=== PATIENT | male | born 1980 | race Caucasian/White ===

== ENCOUNTER 2022-09-02 17:36 | Emergency (ER) | payer OTHER, SELFPAY ==
[2022-09-02 17:38] VITALS: BP 163/111; PULSE 103; RESP 16; TEMP 36.2; O2SAT 98; BMI 25.6
--- NOTE | 2022-09-02 17:49 | EKG12_ITS ---
Test Reason : MENTAL HEALTH Blood Pressure : / mmHG Vent. Rate : 101 BPM Atrial Rate : 101 BPM P-R Int : 128 ms QRS Dur : 110 ms QT Int : 328 ms P-R-T Axes : 078 076 051 degrees QTc Int : 425 ms Sinus tachycardia Low voltage QRS (Limb Leads) Confirmed by JUAN CARLOS KATE, KUMAR ([id number]), publishing editor SETH JUNIOR ([id number]) on 09/04/2022 7:31:11 AM Referred By: CHANA Confirmed By:KUMAR RANGEL MD
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
[2022-09-02 18:20] LABS: Absolute Lymphocyte Count 2.26 X10^3/uL (0.83-4.51); Absolute Neutrophil Count 4.5 X10^3/uL (2.0-7.7); Basophil# 0.07 X10^3/uL; Basophil% 0.9 % (0-1); Eosinophil# 0.38 X10^3/uL; Eosinophils% 4.7 % (0-5); Hematocrit 48.4 % (40-54); Hemoglobin 16.6 g/dL (13.0-16.5); Lymphocyte # 2.26 X10^3/ul (0.83-4.51); Lymphocyte % 27.9 % (19-41); Mean Corp Hgb Conc 34.3 g/dL (32-36); Mean Corpuscular Hgb 29.6 pg (27.0-32.0); Mean Corpuscular Volume 86.4 fL (80-94); Mean Platelet Vol. 9.1 fl (6.2-12.0); Monocyte# 0.83 X10^3/uL; Monocyte% 10.2 % (0-10); NRBC Flagged by Analyzer 0 % (0-5); Neutrophil # 4.54 X10^3/uL (2.7-7.7); Neutrophil % 55.9 % (47-70); Platelet Count 260 K/mm3 (150-450); RBC Distribution Width CV 12.5 % (11.6-14.6); RBC Distribution Width SD 39.1 fl (35.1-43.9); White Blood Count 8.1 K/mm3 (4.4-11.0)
[2022-09-02 18:32] LABS: Amphetamine Urine VISTA POSITIVE (<1000 ng/mL); Barbiturate Urine VISTA NEGATIVE (< 200 ng/mL); Benzodiazepine Urine VISTA POSITIVE (< 200 ng/mL); Cocaine Urine VISTA NEGATIVE (< 300 ng/mL); Ecstacy Urine VISTA POSITIVE (< 500 ng/mL); Methadone Urine VISTA NEGATIVE (< 300 ng/mL); PCP Urine VISTA NEGATIVE (< 25 ng/mL); THC Urine VISTA NEGATIVE (< 50 ng/mL); Vista UDS pH Range 5
[2022-09-02 18:46] LABS: ALB/GLOB Ratio 1.1 RATIO (0.9-2.4); AST(SGOT) 13 U/L (15-37); Alanine Aminotransfer ALT/SGPT 23 U/L (16-61); Albumin, Serum 3.6 g/dL (3.2-5.0); Alkaline Phosphatase 80 U/L (45-117); Anion Gap 6 (5-15); BUN 7 mg/dL (7-18); BUN/Creat Ratio 6.9 RATIO (10-20); Calcium,Total 8.3 mg/dL (8.5-10.1); Chloride 106 mmol/L (98-107); Creatinine, Serum 1.01 mg/dL (0.70-1.30); EST Glomerular Filtration Rate 86 mL/min (>60); Est Glom Filt Rate - Afr Amer 104 mL/min (>60); Estimated Creatinine Clearance 105.64 ml/min; Globulin 3.2 g/dL (2.2-4.2); Glucose 98 mg/dL (74-106); Potassium 3.5 mmol/L (3.5-5.1); Protein, Total 6.8 g/dL (6.4-8.2); Sodium Level 138 mmol/L (136-145)
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
[2022-09-02 21:59] VITALS: BP 140/85; PULSE 76; RESP 18; O2SAT 97
[2022-09-02] MEDS: Doxazosin 4 MG Tablet PO (22:55)
[2022-09-02] MEDS: hydrOXYzine PAM 25 MG Capsule 50 MG PO (22:55)
[2022-09-03] VITALS (7 sets, daily range): BP systolic 110–121; BP diastolic 68–77; PULSE 87–93; RESP 14–16; TEMP 36.6; O2SAT 96–97
--- NOTE | 2022-09-03 01:01 | ED.RN ---
va given information about patient at this time. they will call back with follow up
== END 2022-09-03 07:41 ==
PROVIDERS: Emergency Medicine; Emergency Provider Emergency Medicine; Visit Provider Emergency Medicine
DX: F32.A Depression, unspecified (principal); F15.10 Other stimulant abuse, uncomplicated; R45.850 Homicidal ideations; R45.851 Suicidal ideations; F10.10 Alcohol abuse, uncomplicated; Z20.822 Contact with and (suspected) exposure to COVID-19; F43.10 Post-traumatic stress disorder, unspecified; F17.210 Nicotine dependence, cigarettes, uncomplicated
CPT/HCPCS: 36415; 80053; 80307; 82077; 85025; 87635; 87811; 93005; 99284; U0003; U0005

== ENCOUNTER 2023-04-06 22:54 | Emergency (ER) | payer OTHER, SELFPAY ==
[2023-04-06 22:58] VITALS: BP 134/94; PULSE 93; RESP 20; TEMP 36.2; O2SAT 98; BMI 29.2
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
[2023-04-07] MEDS: Lidocaine 1% /Epi 1:100 (20ml) 20 ML Vial 5 ML INFILT (00:34)
== END 2023-04-07 00:34 | disposition home or self-care (01) ==
PROVIDERS: Emergency Provider Emergency Medicine; Visit Provider Emergency Medicine
DX: S71.112A Laceration without foreign body, left thigh, initial encounter (principal); F17.210 Nicotine dependence, cigarettes, uncomplicated; W26.0XXA Contact with knife, initial encounter
CPT/HCPCS: 12001; 99284

== ENCOUNTER 2025-02-25 14:37 | Observation (INO) | payer OTHER, SELFPAY ==
[2025-02-25] VITALS (7 sets, daily range): BP systolic 118–167; BP diastolic 51–98; PULSE 72–97; RESP 16–20; TEMP 36.4–36.8; O2SAT 94–100; BMI 27.5; BMI 28.2
--- NOTE | 2025-02-25 15:10 | US_ITS ---
PROCEDURE: TESTICULAR WITH ARTERIAL FLOW 02/25/2025 REASON FOR EXAM: LEFT TESTICLE PAIN TECHNIQUE: Rivera scale imaging of the scrotal contents. COMPARISON: none FINDINGS: Right testicle measures 5 x 2.8 x 2.1 cm, within normal limits in size, and right epididymis measures 1 x 0.9 x 0.8 cm, within normal limits in size. Both structures are normal in echotexture and vascularity. Left testicle measures 4.3 x 3.0 x 2.2 cm, within normal limits in size, and left epididymis measures 1 x 0.5 x 0.6 cm, within normal limits in size. Both structures are normal in echotexture and vascularity. US/Testicular with Arterial Flow IMPRESSION: NORMAL SCROTAL ULTRASOUND. Reading Location: [id number]
[2025-02-25] MEDS: 0.9% Normal Saline (1000mL) 1,000 ML 999 ML IV ×2 (15:25→17:33)
[2025-02-25] MEDS: Ondansetron 4 MG/2 ML Vial IV ×2 (15:25→19:46)
[2025-02-25] MEDS: Morphine 4 MG/ML Syringe IV (15:25)
--- NOTE | 2025-02-25 15:40 | CT_ITS ---
PROCEDURE: ABDOMEN/PELVIS W IV CONT ONLY 02/25/2025 REASON FOR EXAM: LEFT LOWER QUADRANT ABDOMINAL PAIN TECHNIQUE: Abdomen and pelvis CT with intravenous contrast. Coronal and Sagittal reconstruction series were provided. PATIENT PREPARATION: Per protocol ORAL CONTRAST TYPE: None. CONTRAST: Isovue 370 VOLUME: 100 mL One or more dose reduction techniques were used (e.g., Automated exposure control, adjustment of the mA and/or kV according to patient size, use of iterative reconstruction technique. RADIATION DOSE SUMMARY: CTDlvol: 100 mGy DLP: 1100 mGycm COMPARISON: None. FINDINGS: Visualization is slightly limited by motion artifact despite repeated imaging sequences. Lung bases: Unremarkable. The heart is normal in size. Liver: The liver is normal in size without obvious hepatic mass. The major portal veins are grossly patent. No biliary ductal dilation. Gallbladder: No radiopaque stones within the gallbladder. Spleen: Normal in size. Pancreas: Unremarkable. Adrenals: No adrenal mass. Kidneys: Obstructing stone within the mid-distal ureter at the ureteropelvic junction, measuring 0.5 cm (coronal image 65). There is mild left hydroureteronephrosis with delayed left nephrogram. No hydronephrosis or nephrolithiasis of the right kidney. Bladder: Distended and unremarkable. Reproductive Organs: Unremarkable. Bowel: The bowel loops are normal in caliber. No ascites or pneumoperitoneum. Normal appendix. Lymph nodes: No suspicious lymph node enlargement. Vasculature: The abdominal aorta and IVC are normal. Bones: Small cortical lucency along the right posterior iliac crest (series 2, image 71), most compatible with remote injury or biopsy. CT/Abdomen/Pelvis W IV Cont ONLY IMPRESSION: Obstructing stone within the left mid-distal ureter at the ureteropelvic juncti on with mild left hydroureteronephrosis and delayed nephrogram. Reading Location: [id number]
[2025-02-25 15:47] LABS: Absolute Lymphocyte Count 2.13 X10^3/uL (0.83-4.51); Absolute Neutrophil Count 10.4 X10^3/uL (2.0-7.7); Basophil# 0.04 X10^3/uL; Basophil% 0.3 % (0-1); Eosinophil# 0.14 X10^3/uL; Hematocrit 41.4 % (40-54); Hemoglobin 14.6 g/dL (13.0-16.5); Lymphocyte # 2.13 X10^3/ul (0.83-4.51); Lymphocyte % 15.3 % (19-41); Mean Corp Hgb Conc 35.3 g/dL (32-36); Mean Corpuscular Volume 79.5 fL (80-94); Mean Platelet Vol. 9.1 fl (6.2-12.0); Monocyte# 1.15 X10^3/uL; Monocyte% 8.3 % (0-10); NRBC Flagged by Analyzer 0 % (0-5); Neutrophil % 74.7 % (47-70); Platelet Count 242 K/mm3 (150-450); RBC Distribution Width CV 12.1 % (11.6-14.6); RBC Distribution Width SD 34.8 fl (35.1-43.9); Red Blood Count 5.21 M/mm3 (4.6-6.2); White Blood Count 13.9 K/mm3 (4.4-11.0)
--- NOTE | 2025-02-25 16:01 | EDS_ITS ---
HPI History of Present Illness Chief Complaint: Male Pain/Injury Narrative Narrative: Chief complaint and HPI: Left lower quadrant abdominal pain. 45-year-old male with past medical history of PTSD and depression presents for evaluation of left lower quadrant abdominal pain. Onset approximately 4 to 5 hours ago. Associated symptom is nausea. States that the pain radiates into his left testicle. Denies any injury. Denies any history of diverticulosis or diverticulitis. Denies any fever, chills, shortness of breath, chest pain, emesis, diarrhea, constipation, dysuria. Denies any penile discharge and no concern for STI. Review of systems: See HPI Medications: As listed on the chart Allergies: As listed on the chart PFSH: Per chart Vital signs: As listed on the chart. Reviewed. Physical exam: Gen: A&O x3, NAD Head: Normocephalic, atraumatic Eyes: No sclera icterus, conjunctiva clear ENT: Moist mucous membranes Neck: Trachea midline, No JVD CV: RRR, no murmurs, no peripheral edema Resp: Lungs CTA BL, no w/r/c GI: Abd soft, non-distended, tender to palpation in the left lower quadrant, no rebound or rigidity : Circumcised penis. No penile tenderness or discharge. No penile or testicular swelling. Normal lie and position of the testicles. Left testicle mildly tender to palpation diffusely without masses or skin changes. Right testicle nontender without masses or skin changes. Cremasteric reflexes intact and equal bilaterally. No rashes. No palpable hernias. No CVA tenderness Musc: Full ROM, no deformity Skin: Warm, dry Neuro: Alert, oriented, grossly intact, sensation intact Psych: Cooperative, appropriate mood and affect [facility] Medical History PTSD (post-traumatic stress disorder) Home Medications ?Medication ?Instructions ?Recorded ?Last Taken ?Type NK 02/25/25 Unknown History Allergy/AdvReac Type Severity Reaction Status Date / Time Penicillins Allergy PT UNSURE Verified 02/25/25 14:38 OF REACTION Social History Smoking Status: Current every day smoker tobacco type: cigarettes EXAM Physical Exam Const Vital Signs: 02/25/25 14:37 Temperature 98.2 F Temperature Source Oral Pulse Rate 97 Respiratory Rate 16 Blood Pressure 136/86 H Blood Pressure Mean 102 Pulse Ox 100 Oxygen Delivery Method Room Air MDM MDM MDM Narrative Medical decision making narrative: 45-year-old male with past medical history of PTSD and depression presents for evaluation of left lower quadrant abdominal pain. Onset approximately 4 to 5 hours ago. Associated symptom is nausea. States that the pain radiates into his left testicle. See physical exam findings. Differential diagnosis includes but is not limited to diverticulitis, hernia, testicular cancer, epididymitis, UTI, urolithiasis. NS bolus, morphine, Zofran ordered for symptoms. Laboratory workup ordered including CT abdomen pelvis and testicular ultrasound. CBC shows a leukocytosis of 13.9. No anemia. CMP relatively unremarkable except for elevated creatinine of 1.56. Previous labs are from 2021 which shows normal creatinine at that time. Unknown if this is acute or chronic. Patient was Clinisynced and no previous labs are available. No elevated BUN. No transaminitis. CT abdomen pelvis shows obstructing stone within the left mid d istal ureter at the UPJ with mild left hydroureteronephrosis and delayed nephrogram. Stone measures approximately 0.5 cm. Patient's pain is likely secondary to his urolithiasis. Lactic acid unremarkable. On reevaluation, patient still having pain. Toradol ordered. Testicular ultrasound unremarkable. UA pending. Patient will be signed out to oncoming physician. Patient will likely need to be discussed with urology once UA has resulted as he may require admission. Lab Data Labs: Laboratory Results - last 24 hr 02/25/25 15:29 WBC 13.9 H RBC 5.21 Hgb 14.6 Hct 41.4 MCV 79.5 L MCH 28.0 MCHC 35.3 RDW Std Deviation 34.8 L RDW Coeff of Tom 12.1 Plt Count 242 MPV 9.1 Immature Gran % (Auto) 0.400 Neut % (Auto) 74.7 H Lymph % (Auto) 15.3 L [place] % (Auto) 8.3 Eos % (Auto) 1.0 Baso % (Auto) 0.3 Absolute Neuts (auto) 10.4 H Absolute Lymphs (auto) 2.13 Nucleated RBC % 0 Sodium 138 Potassium 3.7 Chloride 104 Carbon Dioxide 21.7 Anion Gap 12 BUN 13 Creatinine 1.46 H Estim Creat Clear Calc 70.87 Est GFR (MDRD) Non-Af 60 BUN/Creatinine Ratio 9.2 L Glucose 101 H Lactic Acid 2.0 Calcium 8.9 Total Bilirubin 0.49 AST 29 ALT 17 Alkaline Phosphatase 68 Total Protein 6.2 Albumin 3.9 Globulin 2.3 Albumin/Globulin Ratio 1.7 Radiography Diagnostic Testing: Clinical Impression(s) from Imaging Studies Testicular Ultrasound 02/25/25 15:10 IMPRESSION: NORMAL SCROTAL ULTRASOUND. Reading Location: [facility] Abdomen/Pelvis CT 02/25/25 15:40 IMPRESSION: Obstructing stone within the left mid-distal ureter at the ureteropelvic junction with mild left hydroureteronephrosis and delayed nephrogram. Reading Location: [facility] Discharge Plan Triage Chief Complaint: Male Pain/Injury ED Provider: Live Pollock Dx/Rx/DC Orders Prescriptions: No Action NK Primary Care Provider: [facility] Referrals: [facility] [Primary Care Provider] - Print Language: Setswana
[2025-02-25 16:08] LABS: ALB/GLOB Ratio 1.7 RATIO (0.9-2.4); AST(SGOT) 29 U/L (<=37); Alanine Aminotransfer ALT/SGPT 17 U/L (<=46); Albumin, Serum 3.9 g/dL (3.5-5.0); Alkaline Phosphatase 68 U/L (40-129); Anion Gap 12 (5-15); BUN 13 mg/dL (4-19); BUN/Creat Ratio 9.2 RATIO (10-20); Calcium,Total 8.9 mg/dL (7.6-11.0); Carbon Dioxide 21.7 mmol/L (21.0-32.0); Chloride 104 mmol/L (98-108); Creatinine, Serum 1.46 mg/dL (0.70-1.20); EST Glomerular Filtration Rate 60 (>60); Estimated Creatinine Clearance 70.87 ml/min (50-250); Globulin 2.3 g/dL (2.2-4.2); Glucose 101 mg/dL (70-99); Potassium 3.7 mmol/L (3.3-5.1); Protein, Total 6.2 g/dL (5.9-8.4); Sodium Level 138 mmol/L (133-145); Total Bilirubin 0.49 mg/dL (0.00-1.30)
[2025-02-25] MEDS: Ketorolac 30 MG/ML Syringe IV (16:53)
[2025-02-25 17:30] LABS: Bacteria 0 SEEN /hpf (None Seen); Mucous, Urine 0 SEEN /hpf (<or=2+)
[2025-02-25] MEDS: morphine 8 MG/ML Syringe IV (17:33)
[2025-02-25 18:07] LABS: Color, Urine Yellow (Yellow); Glucose, Dipstick Normal (Normal); Ketone-Dipstick Negative (Negative); Leukocyte Esterase-Dipstick 25 /ul (Negative); Nitrite-Dipstick Negative (Negative); Occult Blood-Urine 250 /ul (Negative); Protein-Dipstick 30 mg/dl (Negative); Urine Bilirubin Dipstick Negative (Negative); Urine Clarity Sl. Cloudy (Clear); Urine Urobilinogen Normal (Normal)
[2025-02-25 18:39] LABS: Red Blood Cells-Urine 50-100 SEEN /hpf (0-5); Squamous Epithelial Cells - UA 0-5 SEEN /hpf (0-5); White Blood Cells 0-5 SEEN /hpf (0-5)
[2025-02-25 19:39] LABS: Reflex Lactate? Y
[2025-02-25] MEDS: morphine 8 MG/ML Syringe 6 MG IV (19:46)
[2025-02-25] MEDS: 0.9% Normal Saline (1000mL) 1,000 ML 50 ML IV (20:32)
[2025-02-25 21:08] LABS: Lactic Acid < 1.0 mmol/L (0.0-2.0)
[2025-02-26] VITALS (8 sets, daily range): BP systolic 113–148; BP diastolic 65–88; PULSE 81–97; RESP 16–18; TEMP 36.4–36.9; O2SAT 95–98
--- OUTSIDE RECORDS SUMMARY | 2025-02-26 00:04 | XMS RPT_ITS | CCD ---
Author Organization [facility] ion Partnership [facility] Care Team Providers Care Lpta Name Role Phone DOT CRUMP Unavailable Unavailable PHYSICIAN, NONE Unavailable Unavailable RADHA CHUA (SPANISH LITERATURE PROFESSOR) Unavailable UnavailEsther Smith Attending Unavailable Care Physician, No Primary Primary Care Unava Demetris Ronquillo Attending [facility], [place] Primary Care [facility], [place] Primary Care Provider Johnie Pollock DO, Dr. Mancini Emergency Provider Louis KATE, Dr. Korey Lua Admit Provider Louis KATE, Dr. Korey Lua Attending Provider [phone] Louis KATE, Dr. Korey Lua Referring Provider Allergies Allergy Classification Reported Allergen(s) Allergy Type Date of Onset Reaction(s) Facility (4 sources) Penicillins; Translations: [PENICILLINS] Propensity to adverse reactions to drug (disorder) 8 AOF, PT UNSURE OF REACTION [facility] Repository Medications Current Medications Medication Drug Class(es) Dates Sig (Normalized) Sig (Original) [place] (Nk) (1 source) Start: 02-25-2025 [place] (Nk) A ctive February 25, 2025 12:00am Completed/Discontinued Medications Medication Drug Class(es) Dates Sig (Normalized) Sig (Original) FLUoxetine 20 mg oral tablet (2 sources) Serotonin Reuptake Inhibitor Start: 09-02-2022 End: 02-25-2025 take 1 tablet by mouth once daily Fluoxetine 20 mg Tablet Discontinued 20 mg PO DAILY September 02, 2022 1:00am February 25, 2025 3:04pm hydrOXYzine pamoate 50 mg oral capsule (2 sources) Antihistamine Start: 09-02-2022 End: 02-25-2025 take 1 capsule by mouth twice daily as needed for anxiety Hydroxyzine Pamoate 50 mg Capsule Discontinued 50 mg PO TWICE A DAY as needed for Anxiety September 02, 2022 1:00am February 25, 2025 3:04pm prazosin 5 mg oral capsule (2 sources) alpha-Adrenergic Pratik Start: 09-02-2022 End: 02-25-2025 take 1 capsule by mouth at bedtime Prazosin 5 mg Capsule Discontinued 5 mg PO AT BEDTIME September 02, 2022 1:00am February 25, 2025 3:04pm Problems Problem Classification Problem Date Documented Date Episodic/Chronic Alcohol-related disorders (2 sources) Alcohol abuse; Translations: [Alcohol abuse, uncomplicated] 09-11-2022 Chronic Impulse control disorders, NEC (2 sources) Homicidal thoughts; Translations: [Homicidal ideations] 09-11-2022 Episodic Mood disorders (2 sources) Depressive disorder; Translations: [Depression with suicidal ideation] 09-11-2022 Chronic Open wounds of extremities (2 sources) Laceration of thigh; Translations: [Laceration without foreign body, left thigh, initial encounter] 04-06-2023 Episodic Other lower respiratory disease (1 source) Pleurodynia; Translations: [Pleurodynia] Onset: 08-30-2018 Episodic Substance-related disorders (2 sources) Methamphetamine abuse; Translations: [Other stimulant abuse, uncomplicated] 09-11-2022 Chronic Suicide and intentional self-inflicted injury (1 source) Suicidal ideations; Translations: [Suicidal ideations] Onset: 04-01-2023 Episodic Results Test Name Value Interpretation Reference Range Facility Absolute lymphocyte countOrd ered By: Live Pollock on 02-25-2025 Lymphocytes Auto (Unsp spec) [#/Vol] 2.13 10*3/uL 0.83-4.51 [facility] Absolute neutrophil countOrd ered By: Live Pollock on 02-25-2025 Neutrophils (Bld) [#/Vol] 10.4 10*3/uL High 2.0-7.7 [facility] Anion gap in Serum or Plasma Ordered By: Live Pollock on 02-25-2025 Anion gap [Moles/Vol] 12 mmol/L 5-15 [facility] Automated lymphocyte count a s percentage of total leukocytesOrdered By: Live Pollock on 02-25-2025 Lymphocytes/100 WBC Auto (Unsp spec) 15.3 % Low 19-41 [facility] BUN/creatinine ratioOrdered By: Live Pollock on 02-25-2025 Urea nitrogen/Creatinine [Mass ratio] 9.2 mg/mg Low 10-20 [facility] Basophil percentageOrdered B y: Live Pollock on 02-25-2025 Basophils/100 WBC (Bld) 0.3 % 0-1 [facility] Bilirubin Test strip Ql (U)O rdered By: Live Pollock on 02-25-2025 Bilirubin Ql (U) Negative Negative [facility] Bilirubin, totalOrdered By: Live Pollock on 02-25-2025 Bilirubin [Mass/Vol] 0.49 mg/dL 0.00-1.30 [facility] Carbon dioxide, total [Moles /volume] in Central venous bloodOrdered By: Live Pollock on 02-25-2025 CO2 [Moles/Vol] 21.7 mmol/L 21.0-32.0 [facility] Chloride assayOrdered By: Tiago Pollock on 02-25-2025 Chloride [Moles/Vol] 104 mmol/L 98-108 [facility] Eosinophil percentageOrdered By: Live Pollock on 02-25-2025 Eosinophils/100 WBC (Bld) 1.0 % 0-5 [facility] Erythrocyte distribution wid th ratioOrdered By: Live Pollock on 02-25-2025 Erythrocyte distribution width (RBC) [Ratio] 12.1 % 11.6-14.6 [facility] Erythrocyte distribution wid th standard deviationOrdered By: Live Honeycutt on 02-25-2025 Erythrocyte distribution width (RBC) [Ratio] 34.8 fl Low 35.1-43.9 [facility] Glomerular filtration rate ( GFR) estimation/1.73 sq m using serum, plasma, or whole bOrdered By: Live Pollock on 06-09-2025 GFR/1.73 sq M.predicted among non-blacks MDRD (S/P/Bld) [Vol rate/Area] 60 mL/min/{1.73_m2} >60 [facility] Comment on above: mL/min/1.73m2 CKD-EP I Creatinine Equation (2020) Hematocrit Auto (Bld) [Volum e fraction]Ordered By: Live Pollock on 02-25-2025 Hematocrit (Bld) [Volume fraction] 41.4 % 40-54 [facility] Hemoglobin measurementOrdere d By: Live Pollock on 02-25-2025 Hemoglobin (Bld) [Mass/Vol] 14.6 g/dL 13.0-16.5 [facility] Immature granulocytes/100 WB C Auto (Bld)Ordered By: Live Pollock on 02-25-2025 Immature granulocytes/100 WBC (Bld) 0.400 % 0.0-0.9 [facility] Comment on above: IG% - Immature Granu locytes (promyelocytes, myelocytes and metamyelocytes) > 1% indicates that a LEFT SHIFT is Present. Ketones Test strip Ql (U)Ord ered By: [facility] on 02-[facility] Ketones Ql (U) Negative Negative [facility] Laboratory - Chemistry and C hemistry - challengeOrdered By: Live Pollock on 02-25-2025 AST [Catalytic activity/Vol] 29 U/L <38 [facility] Lactic acid measurementOrder ed By: Live Pollock on 02-25-2025 Lactate [Moles/Vol] 2.0 mmol/L 0.0-2.0 [facility] Comment on above: Critical Result(s) C alled at: 1617 by: MURPHY DAVENPORT Results read back by same. MCV (mean corpuscular volume ) determinationOrdered By: Live Pollock on 02-25-2025 MCV (RBC) [Entitic vol] 79.5 fL Low 80-94 [facility] Mean corpuscular hemoglobin (MCH) determinationOrdered By: Liverasheeda Pollock on 02-25-2025 MCH (RBC) [Entitic mass] 28.0 pg 27.0-32.0 [facility] Mean corpuscular hemoglobin concentration (MCHC) determinationOrdered By: Live Pollock on 02-25-2025 MCHC (RBC) [Mass/Vol] 35.3 g/dL 32-36 [facility] Mean platelet volume determi nationOrdered By: Live Pollock on 02-25-2025 Platelet mean volume (Bld) [Entitic vol] 9.1 fL 6.2-12.0 [facility] Microscopic analysis of urin e for red blood cells (RBC)Ordered By: Live Pollock on 02-25-2025 Microscopic analysis of urine for red blood cells (RBC) 50-100 SEEN /hpf 0-5 [facility] Monocyte percentageOrdered B y: Live Pollock on 02-25-2025 Monocytes/100 WBC (Bld) 8.3 % 0-10 [facility] Mucus LM Ql (Urine sed)Order ed By: Live Pollock on 02-25-2025 Mucus Ql (Urine sed) 0 SEEN /hpf [facility] Neutrophil percentageOrdered By: Live Pollock on 02-25-2025 Neutrophils/100 WBC (Bld) 74.7 % High 47-70 [facility] Nitrite Test strip Ql (U)Ord ered By: Live Pollock on 02-25-2025 Nitrite Ql (U) Negative Negative [facility] Nucleated red blood cell per centageOrdered By: Live Pollock on 02-25-2025 Nucleated RBC/100 WBC (Bld) [Ratio] 0 % 0-5 [facility] Platelet countOrdered By: Tiago Pollock on 02-25-2025 Platelets (Bld) [#/Vol] 242 10*3/uL 150-450 [facility] Potassium measurement (mass/ volume)Ordered By: Live Pollock on 02-25-2025 Potassium (Unsp spec) [Mass/Vol] 3.7 mmol/L 3.3-5.1 [facility] Protein Test strip Ql (U)Ord ered By: Live Pollock on 02-25-2025 Protein Ql (U) 30 mg/dl High Negative [facility] RBC Auto (Bld) [#/Vol]Ordere d By: Live Pollock on 02-25-2025 RBC (Bld) [#/Vol] 5.21 10*6/uL 4.6-6.2 [facility] Serum creatinine measurement (mass/volume)Ordered By: Live Pollock on 02-25-2025 Creatinine [Mass/Vol] 1.46 mg/dL High 0.70-1.20 [facility] Serum globulin measurementOr dered By: Live Pollock on 02-25-2025 Globulin (S) [Mass/Vol] 2.3 g/dL 2.2-4.2 [facility] Serum glucose measurement (m ass/volume)Ordered By: Live Pollock on 02-25-2025 Glucose [Mass/Vol] 101 mg/dL High 70-99 [facility] Serum or plasma alanine nascimento otransferase (ALT) measurementOrdered By: Live Pollock on 02-25-2025 ALT [Catalytic activity/Vol] 17 U/L <47 [facility] Serum or plasma albumin lillie urement (mass/volume)Ordered By: Live Honeycutt on 02-25-2025 Albumin [Mass/Vol] 3.9 g/dL 3.5-5.0 [facility] Serum or plasma albumin/glob ulin mass ratioOrdered By: Live Pollock on 02-25-2025 Albumin/Globulin [Mass ratio] 1.7 {ratio} 0.9-2.4 [facility] Serum or plasma alkaline winter sphatase measurementOrdered By: Live Pollock on 02-25-2025 ALP [Catalytic activity/Vol] 68 U/L 40-129 [facility] Serum or plasma calcium lillie urement (mass/volume)Ordered By: Live Honeycutt on 06-09-2025 Calcium [Mass/Vol] 8.9 mg/dL 7.6-11.0 [facility] Serum or plasma urea nitroge n measurement (mass/volume)Ordered By: Live Pollock on 02-25-2025 Urea nitrogen [Mass/Vol] 13 mg/dL 4-19 [facility] Sodium levelOrdered By: Latrell Pollock on 02-25-2025 Sodium [Moles/Vol] 138 mmol/L 133-145 [facility] Squamous epithelial cells de tection in urine sediment by light microscopyOrdered By: Live Pollock on 02-25-2025 Epithelial cells.squamous LM Ql (Urine sed) 0-5 SEEN /hpf 0-5 [facility] Total proteinOrdered By: Rahat Pollock on 02-25-2025 Protein [Mass/Vol] 6.2 g/dL 5.9-8.4 [facility] Urine clarityOrdered By: Rahat Pollock on 02-25-2025 Clarity (U) Sl. Cloudy Clear [facility] Urine color determinationOrd ered By: Live Pollock on 02-25-2025 Color (U) Yellow Yellow [facility] Urine glucose detectionOrder ed By: Live Pollock on 02-25-2025 Glucose Ql (U) Normal mg/dl Normal [facility] Urine leukocyte esterase det ection by dipstickOrdered By: Live Pollock on 02-25-2025 Leukocyte esterase Test strip Ql (U) 25 /ul High Negative [facility] Urine pHOrdered By: Live Nieto on 02-25-2025 pH (U) 7.0 [pH] 5.0 - 8.0 [facility] Urine sediment bacteria coun t by microscopy (number/high power field)Ordered By: Live Pollock on 02-25-2025 Bacteria LM.HPF (Urine sed) [#/Area] 0 /[HPF] None Seen [facility] Urine specific gravity measu rementOrdered By: Live Pollock on 02-25-2025 Specific gravity (U) [Rel density] 1.010 1.002-1.03 0 [facility] Urine urobilinogen measureme ntOrdered By: Live Pollock on 02-25-2025 Urobilinogen Ql (U) Normal mg/dl Normal [facility] White blood cell (WBC) count Ordered By: Live Pollock on 02-25-2025 WBC (Bld) [#/Vol] 13.9 10*3/uL High 4.4-11.0 [facility] White blood cell countOrdere d By: Live Pollock on 02-25-2025 White blood cell count 0-5 SEEN /hpf 0-5 [facility] Emergency Department Summary on 04-07-2023 Emergency Department Summary [facility] Medical Records Department [address] [place] [address] Emergency Department Summary 04/06/23 MR#: [id number] Acct: [id number] Name: DARYL PELLETIER Rep #: [id number] : 1980 43 From: Demetris Tatum MD PCP: [facility] Status:REG ER Location: ED HPI History of Present Illness Chief Complaint: Wound Informant: patient Narrative Narrative: Patient was trying to cut the top of half of a gallon of milk to use it for his dog, the knife slipped and accidentally stabbed himself in the left thigh. He states there was a significant amount of bleeding, he does not recall it being pulsatile, just pouring out along with some clots. No other injuries, no syncope. EMS was called by his , tourniquet was applied bleeding is controlled now. Tetanus Immunization: <5 years [facility] Medical History PTSD (post-traumatic stress disorder) Home Medications fluoxetine 20 mg tablet 20 mg PO DAILY 09/02/22 [History Last Taken Unknown] hydroxyzine pamoate 50 mg capsule 50 mg PO BID PRN Anxiety 09/02/22 [History Last Taken Unknown] prazosin 5 mg capsule 5 mg PO QHS 09/02/22 [History Last Taken Unknown] Allergy/AdvReac Type Severity Reaction Status Date / Time Penicillins Allergy PT UNSURE Verified 04/06/23 23:01 OF REACTION Social History Smoking Status: Current every day smoker tobacco type: cigarettes ROS ROS ED Constitutional Constitutional ED: Denies chills or fever(s) Musculoskeletal Musculoskeletal: Reports extremity pain; Denies neck pain Integumentary Denies Abrasions, rash or wounds Neurologic Neurologic: Denies paresthesias or weakness EXAM Physical Exam Const Vital Signs: 04/06/23 22:58 Temperature 97.1 F L Temperature Source Temporal Pulse Rate 93 Respiratory Rate 20 H Blood Pressure 134/94 H Blood Pressure Mean 107 Pulse Ox 98 Oxygen Delivery Method Room Air Positive well nourished and well developed General Appearance ED: well developed and NAD Neck full ROM and supple Back/Spine normal ROM and normal to inspection Extremity full ROM Extremity Narrative: 2 cm laceration exposing subcutaneous fat without any active bleeding or large hematoma in the anteromedial left thigh the junction between the proximal and middle thirds. Neuro oriented x3, no focal motor deficits and no sensory deficits noted Sensorium / Orientation: alert Psych mental status grossly normal and thought process normal Skin Skin Narrative: 1.5 cm Laceration to the left anterior medial thigh see above. All compartments soft and nondistended. Rashes: no rashes MDM MDM MDM Narrative Medical decision making narrative: On exploration of the wound, it is indeed superficial, and at an angle, close to superficial vein. No arterial bleed. I am not concerned about a deep puncture into tissue planes that requires antibiotics here. Proceed note for repair information, given appropriate discharge instructions. Procedures Lacerations Left thigh: Length: 1.5 cm Depth: Sub Q Shape: Linear Prep: Sterile Conditions and Chlorhexadine Laceration repair: Irrigated, Lidocaine with epi (1%, 2cc), Local and Skin sutures Irrigated (ml): 80 Number of Sutures/[place]ula: 1 Suture Information: Ethilon, Horizontal, Mattress and 4-0 Discharge Plan Triage Chief Complaint: Wound ED Provider: Demetris Tatum Dx/Rx/DC Orders Clinical Impression: Laceration of left thigh Instructions: ED Laceration Extremity Prescriptions: No Action hydroxyzine pamoate 50 mg Capsule 50 mg PO BID PRN (Reason: Anxiety) prazosin 5 mg Capsule 5 mg PO QHS fluoxetine 20 mg Tablet 20 mg PO DAILY [facility] Care Provider[place] [facility] Referrals: Doctor,Your [Non-Staff] - 10 Day for suture removal (or urgent care/ER) Disposition Disposition: Home, Self Care What to do if you have Problems For any increased pain, shortness of breath, bleeding, nausea or vomiting, chest pain, or any unexpected problems, contact your Primary Care Provider. Call [facility] ([phone]) or report to the closest Emergency Room. Call 911 if necessary. 04/07/23 0022 Cosigner Signature (if applicable): CC: [facility] Signed Normal [facility] COVID 19, [facility](RT COLLECT )on 09-03-2022 SARS-CoV-2 (COVID-19) RNA LISA+probe Ql (Unsp spec) Not detected Normal Not Detect [facility] Comment on above: Result Comment: Norm al Reference Range: Not Detected Method:(RT-PCR) real-time reverse transcriptase PCR Luminex DFMSim Instrument *The Food and Drug Administration (FDA) has issued an Emergency Use Authorization (EAU) for the DFMSim SARS-CoV-2 Assay for the rapid detection of the virus that causes COVID-19. This test has been validated, but the FDAs independent review of this validation is pending. *Negative results do not preclude infection and should not be used as the sole basis for treatment or patient management. Optimum specimen types and timing for peak viral levels during infections caused by SARS-CoV-2 have not been determined. Collection of multiple specimens from the same patient may be necessary to detect the virus. The possibility of a false negative result should be considered if the patient has clinical presentation or has had recent exposure. Performed By: #### L 3400.2405 #### [facility] [address] [place], [address] 12 Lead EKGon 09-02-2022 12 Lead EKG [facility] [address] [place] [address] 12 Lead EKG 09/02/22 1830 MR#: [id number] Acct: [id number] Name: DARYL PELLETIER Rep #: [id number] : 1980 42 From: Jamel Rangel MD Attending Dr: Status: DEP ER Ordering Dr: Esther Pederson DO Date: 09/02/22 Location: ED Sex: M C Admitted: Test Reason : MENTAL HEALTH Blood Pressure : / mmHG Vent. Rate : 101 BPM Atrial Rate : 101 BPM P-R Int : 128 ms QRS Dur : 110 ms QT Int : 328 ms P-R-T Axes : 078 076 051 degrees QTc Int : 425 ms Sinus tachycardia Low voltage QRS (Limb Leads) Confirmed by JUAN CARLOS KATE, JAMEL ([id number]), film and video editor SETH JUNIOR ([id number]) on 09/04/2022 7:31:11 AM Referred By: CHANA Confirmed By:JAMEL RANGEL MD 09/04/22 0731 Date Jamel Rangel MD CC: Dr. Esther Pederson, ; No Primary Care Physician Signed Normal [facility] Alcohol, Blood (Medical)-Ser umon 09-02-2022 SERUM ETOH 5.0 mg/dL Normal [facility] Comment on above: Result Comment: The serum:whole blood ethanol ratio is approximately 1.14 and varies slightly with hematocrit. Medical Alcohol reference interval and critical value in non-tolerant individuals; 50 - 100 Impairment 100 Intoxication 100 - 250 Severe Poisoning 250 - 400 Deep/possible fatal coma Performed By: #### L 100.0100, L501.9100, L505.5000 #### [facility] [address] [place], [address] CBC W/Diff, Automatedon 08-19 Absolute Lymph 2.26 X10 3/uL Normal 0.83-4.51 [facility] Comment on above: Performed By: #### L 100.0100, L501.9100, L505.5000 #### [facility] [address] [place], [address] Absolute Neut 4.5 X10 3/uL Normal 2.0-7.7 [facility] Comment on above: Performed By: #### L 100.0100, L501.9100, L505.5000 #### [facility] [address] [place], [address] Basophils/100 WBC (Bld) 0.9 % Normal 0-1 [facility] Comment on above: Performed By: #### L 100.0100, L501.9100, L505.5000 #### [facility] [address] [place], [address] Eosinophils/100 WBC (Bld) 4.7 % Normal 0-5 [facility] Comment on above: Performed By: #### L 100.0100, L501.9100, L505.5000 #### [facility] [address] [place], [address] Erythrocyte distribution width (RBC) [Ratio] 12.5 % Normal 11.6-14.6 [facility] Comment on above: Performed By: #### L 100.0100, L501.9100, L505.5000 #### [facility] [address] [place], [address] Hematocrit (Bld) [Volume fraction] 48.4 % Normal 40-54 [facility] Comment on above: Performed By: #### L 100.0100, L501.9100, L505.5000 #### [facility] [address] [place], [address] Hemoglobin (Bld) [Mass/Vol] 16.6 g/dL High 13.0-16.5 [facility] Comment on above: Performed By: #### L 100.0100, L501.9100, L505.5000 #### [facility] [address] [place], [address] IG% 0.400 Normal 0.0-0.9 [facility] Comment on above: Result Comment: IG% - Immature Granulocytes (promyelocytes, myelocytes and metamyelocytes) > 1% indicates that a LEFT SHIFT is Present. Performed By: #### L 100.0100, L501.9100, L505.5000 #### [facility] [address] [place], [address] Lymphocytes/100 WBC (Bld) 27.9 % Normal 19-41 [facility] Comment on above: Performed By: #### L 100.0100, L501.9100, L505.5000 #### [facility] [address] [place], [address] MCH (RBC) [Entitic mass] 29.6 pg Normal 27.0-32.0 [facility] Comment on above: Performed By: #### L 100.0100, L501.9100, L505.5000 #### [facility] [address] [place], [address] MCHC (RBC) [Mass/Vol] 34.3 g/dL Normal 32-36 [facility] Comment on above: Performed By: #### L 100.0100, L501.9100, L505.5000 #### [facility] [address] [place], [address] MCV (RBC) [Entitic vol] 86.4 fL Normal 80-94 [facility] Comment on above: Performed By: #### L 100.0100, L501.9100, L505.5000 #### [facility] [address] [place], [address] Monocytes/100 WBC (Bld) 10.2 % High 0-10 [facility] Comment on above: Performed By: #### L 100.0100, L501.9100, L505.5000 #### [facility] [address] [place], [address] Neutrophils/100 WBC (Bld) 55.9 % Normal 47-70 [facility] Comment on above: Performed By: #### L 100.0100, L501.9100, L505.5000 #### [facility] [address] [place], [address] Nucleated RBC (Bld) [#/Vol] 0 10*3/uL Normal 0-5 [facility] Comment on above: Performed By: #### L 100.0100, L501.9100, L505.5000 #### [facility] [address] [place], [address] Platelet mean volume (Bld) [Entitic vol] 9.1 fL Normal 6.2-12.0 [facility] Comment on above: Performed By: #### L 100.0100, L501.9100, L505.5000 #### [facility] [address] [place], [address] Platelets (Bld) [#/Vol] 260 10*3/uL Normal 150-450 [facility] Comment on above: Performed By: #### L 100.0100, L501.9100, L505.5000 #### [facility] [address] [place], [address] RBC (Bld) [#/Vol] 5.60 10*6/uL Normal 4.6-6.2 [facility] Comment on above: Performed By: #### L 100.0100, L501.9100, L505.5000 #### [facility] [address] [place], [address] RDW SD 39.1 fl Normal 35.1-43.9 [facility] Comment on above: Performed By: #### L 100.0100, L501.9100, L505.5000 #### [facility] [address] [place], [address] WBC (Bld) [#/Vol] 8.1 10*3/uL Normal 4.4-11.0 [facility] Comment on above: Performed By: #### L 100.0100, L501.9100, L505.5000 #### [facility] [address] [place], [address] COVID 19 AG RAPID (BATSHEVA Irizarry)on 09-02-2022 SARS-CoV-2 (COVID-19) RNA LISA+probe Ql (Unsp spec) *Negative results from patients with symptom onset beyond five days should be treated as presumptive and confirmed by a molecular assay if clinically necessary. Negative results should not be used as the sole basis for treatment or for patient management. SARS-CoV-2 Ag Resp Ql IA.rapid *Positive results do not differentiate between SARS-CoV and SARS-CoV-2. If differentiation of the specific SARS virus is desired an additional sample and an additional order is required. SARS-CoV-2 Ag Resp Ql IA.rapid * This test has not been FDA cleared or approved; the test has been authorized by FDA under an Emergency Use Authorization (EAU) for use by laboratories certified under CLIA that meet the requirements to perform moderate, high, or waived complexity tests. SARS-CoV-2 Ag Resp Ql IA.rapid Normal Reference Range: Negative SARS-CoV-2 (COVID 19) Negative RAPID METHOD BinaxNow COVID19 Ag Card Normal [facility] Comment on above: Performed By: #### M 100.505 #### [facility] [address] [place], [address] Comprehensive Metabolic Prof ilon 09-02-2022 Albumin [Mass/Vol] 3.6 g/dL Normal 3.2-5.0 [facility] Comment on above: Performed By: #### L 500.4050 #### [facility] [address] [place], [address] Albumin/Globulin [Mass ratio] 1.1 {ratio} Normal 0.9-2.4 [facility] Comment on above: Performed By: #### L 500.4050 #### [facility] [address] [place], [address] ALK P 80 U/L Normal 45-117 [facility] Comment on above: Performed By: #### L 500.4050 #### [facility] [address] [place], [address] ALT [Catalytic activity/Vol] 23 U/L Normal 16-61 [facility] Comment on above: Performed By: #### L 500.4050 #### [facility] [address] [place], [address] AST [Catalytic activity/Vol] 13 U/L Low 15-37 [facility] Comment on above: Performed By: #### L 500.4050 #### [facility] [address] [place], [address] Bilirubin [Mass/Vol] 0.20 mg/dL Normal 0.20-1.00 [facility] Comment on above: Result Comment: For patients on eltrombopag therapy, use of Dimension [place] TBIL is not recommended. Performed By: #### L 500.4050 #### [facility] [address] [place], [address] BUN/CRE 6.9 RATIO Low 10-20 [facility] Comment on above: Performed By: #### L 500.4050 #### [facility] [address] [place], [address] CA,Total 8.3 mg/dL Low 8.5-10.1 [facility] Comment on above: Performed By: #### L 500.4050 #### [facility] [address] [place], [address] Chloride [Moles/Vol] 106 mmol/L Normal 98-107 [facility] Comment on above: Performed By: #### L 500.4050 #### [facility] [address] [place], [address] CO2 [Moles/Vol] 26.0 mmol/L Normal 21.0-32.0 [facility] Comment on above: Performed By: #### L 500.4050 #### [facility] [address] [place], [address] Creatinine [Mass/Vol] 1.01 mg/dL Normal 0.70-1.30 [facility] Comment on above: Result Comment: The validity of the calculated GFR GFRAA in patients over 70 years has not been determined. Clinical correlation is essential. Performed By: #### L 500.4050 #### [facility] [address] [place], [address] ECRCL 105.64 ml/min Normal [facility] Comment on above: Performed By: #### L 500.4050 #### [facility] [address] [place], [address] EST GFR - AA 104 mL/min Normal >60 [facility]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 with Arterial Flow MR#: [id number] Acct: [id number] Name: PRABHUDARYL W Rep #: [id number] : 1980 M 45 From: Tracy Canchola MD PCP: [facility] Status: REG ER Study:Testicular with Arterial Flow Date of E xam: 02/25/25 Exam# [id number] Ordering Dr: Live Peterson DO PROCEDURE: TESTICULAR WITH ARTERIAL FLOW 02/25/2025 REASON FOR EXAM: LEFT TESTICLE PAIN TECHNIQUE: Rivera scale imaging of the scrotal contents. COMPARISON: none FINDINGS: Right testicle measures 5 x 2.8 x 2.1 cm, within normal limits in size, and right epididymis measures 1 x 0.9 x 0.8 cm, within normal limits in size. Both structures are normal in echotexture and vascularity. Left testicle measures 4.3 x 3.0 x 2.2 cm, within normal limits in size, and left epididymis measures 1 x 0.5 x 0.6 cm, within normal limits in size. Both structures are normal in echotexture and vascularity. US/Testicular with Arterial Flow IMPRESSION: NORMAL SCROTAL ULTRASOUND. Reading Location: [facility] CC: Dr. Live Pollock, DO; [facility] ~ Bench Hand Machine: Signed [facility] Radiology Diagnostic study note 02-25-2025 Note Date & Type Note Facility 02-25-2025 Radiology Diagnostic study note [facility] Imaging Services [address] [place] [address] Abdomen/Pelvis W IV Cont ONLY MR#: [id number] Acct: [id number] Name: DARYL PELLETIER Rep #: [id number] : 1980 M 45 From: Yael Machado MD PCP: [facility] Status: REG ER Study:Abdomen/Pelvis W IV Cont ONLY Date of E xam: 02/25/25 Exam# [id number] Ordering Dr: Live Peterson DO PROCEDURE: ABDOMEN/PELVIS W IV CONT ONLY 02/25/2025 REASON FOR EXAM: LEFT LOWER QUADRANT ABDOMINAL PAIN TECHNIQUE: Abdomen and pelvis CT with intravenous contrast. Coronal and Sagittal reconstruction series were provided. PATIENT PREPARATION: Per protocol ORAL CONTRAST TYPE: None. CONTRAST: Isovue 370 VOLUME: 100 mL One or more dose reduction techniques were used (e.g., Automated exposure control, adjustment of the mA and/or kV according to patient size, use of iterative reconstruction technique. RADIATION DOSE SUMMARY: CTDlvol: 100 mGy DLP: 1100 mGycm COMPARISON: None. FINDINGS: Visualization is slightly limited by motion artifact despite repeated imaging sequences. Lung bases: Unremarkable. The heart is normal in size. Liver: The liver is normal in size without obvious hepatic mass. The major portal veins are grossly patent. No biliary ductal dilation. Gallbladder: No radiopaque stones within the gallbladder. Spleen: Normal in size. Pancreas: Unremarkable. Adrenals: No adrenal mass. Kidneys: Obstructing stone within the mid-distal ureter at the ureteropelvic junction, measuring 0.5 cm (coronal image 65). There is mild left hydroureteronephrosis with delayed left nephrogram. No hydronephrosis or nephrolithiasis of the right kidney. Bladder: Distended and unremarkable. Reproductive Organs: Unremarkable. Bowel: The bowel loops are normal in caliber. No ascites or pneumoperitoneum. Normal appendix. Lymph nodes: No suspicious lymph node enlargement. Vasculature: The abdominal aorta and IVC are normal. Bones: Small cortical lucency along the right posterior iliac crest (series 2, image 71), most compatible with remote injury or biopsy. CT/Abdomen/Pelvis W IV Cont ONLY IMPRESSION: Obstructing stone within the left mid-distal ureter at the ureteropelvic junction with mild left hydroureteronephrosis and delayed nephrogram. Reading Location: [id number] CC: Dr. Live Pollock DO; [facility] ~ Bench Hand Machine: Signed [facility] Discharge summary 02-25-2025 Note Date & Type Note Facility 02-25-2025 Discharge summary Note Date/Time February 25, 2025 7:31pm [facility] Medical Records Department [address] [place] [address] Emergency Department Summary 02/25/25 MR#: [id number] Acct: [id number] Name: DARYL PELLETIER Alfonso Rep #:[id number] : 1980 45 From: Live mitchell DO PCP: [facility] Status:REG ER Location: ED ADDENDUM by Dr. Esther Pederson DO on 02/25/25 at 193 Patient signed out to me pending urinalysis results. Urinalysis not consistent with infection. Patient does require redosed with further morphine. Due to hisintractable pain and concern for possible [place] in the setting of obstructing kidney stone will discuss admission. Case discussed with Dr. Myers who accept the patient for admission. Patient is agreeable. Patient's pain is addressed with morphine in the ER. Disposition?admission Diagnosis intractable flank pain Obstructing kidney stone with hydronephrosis Elevated creatinine 02/25/251930<Electronically signed by Esther Pederson DO> Cosigner Signature (if applicable): cc: [facility] ~* Signed HPI History of Present Illness Chief Complaint: Male Pain/Injury Narrative Narrative: Chief complaint and HPI: Left lower quadrant abdominal pain. 45-year-old male with past medical history of PTSD and depression presents for evaluation of leftlower quadrant abdominal pain. Onset approximately 4 to 5 hours ago. Associated symptom is nausea. States that the pain radiates into his left testicle. Denies any injury. Denies any history of diverticulosis or diverticulitis. Denies any fever, chills, shortness of breath, chest pain, emesis, diarrhea, constipation, dysuria. Denies any penile discharge and no concern for STI. Review of systems: See HPI Medications: As listed on the chart Allergies: As listed on the chart PFSH: Per chart Vital signs: As listed on the chart. Reviewed. Physical exam: Gen: A&O x3, NAD Head: Normocephalic, atraumatic Eyes: No sclera icterus, conjunctiva clear ENT: Moist mucous membranes Neck: Trachea midline, No JVD CV: RRR, no murmurs, no peripheral edema Resp: Lungs CTA BL, no w/r/c GI: Abd soft, non-distended, tender to palpation in the left lower quadrant, no rebound or rigidity : Circumcised penis. No penile tenderness or discharge. No penile or testicular swelling. Normal lie and position of the testicles. Left testicle mildly tender to palpation diffusely without masses or skin changes. Right testicle nontender without masses or skin changes. Cremasteric reflexes intact and equal bilaterally. No rashes. No palpable hernias. No CVA tenderness Musc: Full ROM, no deformity Skin: Warm, dry Neuro: Alert, oriented, grossly intact, sensation intact Psych: Cooperative, appropriate mood and affect [facility] Medical History PTSD (post-traumatic stress disorder) Home Medications ?Medication ?Instructions ?Recorded ?Last Taken ?Type NK 02/25/25 Unknown History Allergy/AdvReac Type Severity Reaction Status Date / Time Penicillins Allergy PT UNSURE Verified 02/25/25 14:38 OF REACTION Social History Smoking Status: Current every day smoker tobacco type: cigarettes EXAM Physical Exam Const Vital Signs: 02/25/25 14:37 Temperature 98.2 F Temperature Source Oral Pulse Rate 97 Respiratory Rate 16 Blood Pressure 136/86 H Blood Pressure Mean 102 Pulse Ox 100 Oxygen Delivery Method Room Air MDM MDM MDM Narrative Medical decision making narrative: 45-year-old male with past medical history of PTSD and depression presents for evaluation of left lower quadrant abdominal pain. Onset approximately 4 to 5 hours ago. Associated symptom is nausea. States that the pain radiates into his left testicle. See physical exam findings. Differential diagnosis includesbut is not limited to diverticulitis, hernia, testicular cancer, epididymitis, UTI, urolithiasis. NS bolus, morphine, Zofran ordered for symptoms. Laboratoryworkup ordered including CT abdomen pelvis and testicular ultrasound. CBC showsa leukocytosis of 13.9. No anemia. CMP relatively unremarkable except for elevated creatinine of 1.56. Previous labs are from 2021 which shows normal creatinine at that time. Unknown if this is acute or chronic. Patient was Clinisynced and no previous labs are available. No elevated BUN. No transaminitis. CT abdomen pelvis shows obstructing stone within the left mid distal ureter at the UPJ with mild left hydroureteronephrosis and delayed nephrogram. Stone measures approximately 0.5 cm. Patient's pain is likely secondary to his urolithiasis. Lactic acid unremarkable. On reevaluation, patient still having pain. Toradol ordered. Testicular ultrasound unremarkable. UA pending. Patient will be signed out to oncoming physician. Patient will likely need to be discussed with urology once UA has resulted as hemay require admission. Lab Data Labs: Laboratory Results - last 24 hr 02/25/25 15:29 WBC 13.9 H RBC 5.21 Hgb 14.6 Hct 41.4 MCV 79.5 L MCH 28.0 MCHC 35.3 RDW Std Deviation 34.8 L RDW Coeff of Tom 12.1 Plt Count 242 MPV 9.1 Immature Gran % (Auto) 0.400 Neut % (Auto) 74.7 H Lymph % (Auto) 15.3 L Barrow % (Auto) 8.3 Eos % (Auto) 1.0 Baso % (Auto) 0.3 Absolute Neuts (auto) 10.4 H Absolute Lymphs (auto) 2.13 Nucleated RBC % 0 Sodium 138 Potassium 3.7 Chloride 104 Carbon Dioxide 21.7 Anion Gap 12 BUN 13 Creatinine 1.46 H Estim Creat Clear Calc 70.87 Est GFR (MDRD) Non-Af 60 BUN/Creatinine Ratio 9.2 L Glucose 101 H Lactic Acid 2.0 Calcium 8.9 Total Bilirubin 0.49 AST 29 ALT 17 Alkaline Phosphatase 68 Total Protein 6.2 Albumin 3.9 Globulin 2.3 Albumin/Globulin Ratio 1.7 Radiography Diagnostic Testing: Clinical Impression(s) from Imaging Studies Testicular Ultrasound 02/25/25 15:10 IMPRESSION: NORMAL SCROTAL ULTRASOUND. Reading Location: [facility] Abdomen/Pelvis CT 02/25/25 15:40 IMPRESSION: Obstructing stone within the left mid-distal ureter at the ureteropelvic junction with mild left hydroureteronephrosis and delayed nephrogram. Reading Location: [facility] Discharge Plan Triage Chief Complaint: Male Pain/Injury ED Provider: Live Pollock Dx/Rx/DC Orders Prescriptions: No Action NK Primary Care Provider: [facility] Referrals: [facility] [Primary Care Provider] - Print Language: Taiwanese What to do if you have Problems For any increased pain, shortness of breath, bleeding, nausea or vomiting, chestpain, or any unexpected problems, contact your Primary Care Provider. Call [facility] ([phone]) or report to the closest Emergency Room. Call 911 if necessary. 02/25/25 1642 <Electronically signed by Live Pollock DO> Cosigner Signature (if applicable): CC: [place] [facility] ~ Signed [facility] Work Phone: Discharge summary 04-06-2023 Note Date & Type Note Facility 04-06-2023 Discharge summary Note Date/Time April 06, 2023 11:11pm [facility] Medical Records Department [address] [place] [address] Emergency Department Summary 04/06/23 MR#: [id number] Acct: [id number] Name: DARYL PELLETIER Rep #:[id number] : 1980 43 From: Demetris Tatum MD [facility] Status:REG ER Location: ED HPI History of Present Illness Chief Complaint: Wound Informant: patient Narrative Narrative: Patient was trying to cut the top of half of a gallon of milk to use it for his dog, the knife slipped and accidentally stabbed himself in the left thigh. He states there was a significant amount of bleeding, he does not recall it being pulsatile, just pouring out along with some clots. No other injuries, no syncope. EMS was called by his , tourniquet was applied bleeding is controlled now. Tetanus Immunization: <5 years [facility] Medical History PTSD (post-traumatic stress disorder) Home Medications fluoxetine 20 mg tablet 20 mg PO DAILY 09/02/22 [History Last Taken Unknown] hydroxyzine pamoate 50 mg capsule 50 mg PO BID PRN Anxiety 09/02/22 [History Last Taken Unknown] prazosin 5 mg capsule 5 mg PO QHS 09/02/22 [History Last Taken Unknown] Allergy/AdvReac Type Severity Reaction Status Date / Time Penicillins Allergy PT UNSURE Verified 04/06/23 23:01 OF REACTION Social History Smoking Status: Current every day smoker tobacco type: cigarettes ROS ROS ED Constitutional Constitutional ED: Denies chills or fever(s) Musculoskeletal Musculoskeletal: Reports extremity pain; Denies neck pain Integumentary Denies Abrasions, rash or wounds Neurologic Neurologic: Denies paresthesias or weakness EXAM Physical Exam Const Vital Signs: 04/06/23 22:58 Temperature 97.1 F L Temperature Source Temporal Pulse Rate 93 Respiratory Rate 20 H Blood Pressure 134/94 H Blood Pressure Mean 107 Pulse Ox 98 Oxygen Delivery Method Room Air Positive well nourished and well developed General Appearance ED: well developed and NAD Neck full ROM and supple Back/Spine normal ROM and normal to inspection Extremity full ROM Extremity Narrative: 2 cm laceration exposing subcutaneous fat without any active bleeding or large hematoma in the anteromedial left thigh the junction between the proximal and middle thirds. Neuro oriented x3, no focal motor deficits and no sensory deficits noted Sensorium / Orientation: alert Psych mental status grossly normal and thought process normal Skin Skin Narrative: 1.5 cm Laceration to the left anterior medial thigh see above. All compartmentssoft and nondistended. Rashes: no rashes MDM MDM MDM Narrative Medical decision making narrative: On exploration of the wound, it is indeed superficial, and at an angle, close tosuperficial vein. No arterial bleed. I am not concerned about a deep puncture into tissue planes that requires antibiotics here. Proceed note for repair information, given appropriate discharge instructions. Procedures Lacerations Left thigh: Length: 1.5 cm Depth: Sub Q Shape: Linear Prep: Sterile Conditions and Chlorhexadine Laceration repair: Irrigated, Lidocaine with epi (1%, 2cc), Local and Skinsutures Irrigated (ml): 80 Number of Sutures/Emmett: 1 Suture Information: Ethilon, Horizontal, Mattress and 4-0 Discharge Plan Triage Chief Complaint: Wound ED Provider: Demetris Tatum Dx/Rx/DC Orders Clinical Impression: Laceration of left thigh Instructions: ED Laceration Extremity Prescriptions: No Action hydroxyzine pamoate 50 mg Capsule 50 mg PO BID PRN (Reason: Anxiety) prazosin 5 mg Capsule 5 mg PO QHS fluoxetine 20 mg Tablet 20 mg PO DAILY [facility] Care Provider[facility] Referrals: Doctor,Your [Non-Staff] - 10 Day for suture removal (or urgent care/ER) Disposition Disposition: Home, Self Care What to do if you have Problems For any increased pain, shortness of breath, bleeding, nausea or vomiting, chestpain, or any unexpected problems, contact your Primary Care Provider. Call [facility] ([phone]) or report to the closest Emergency Room. Call 911 if necessary. 04/07/23 0022 <Electronically signed by Demetris Tatum MD> Cosigner Signature (if applicable): CC: [place] [facility] ~ Signed [facility] Work Phone: Evaluation note Note Date & Type Note Facility Evaluation note No assessment information availa ble [facility] Work Phone: Reason for referral (narrative) Note Date & Type Note Facility Reason for referral (narrative) No reason for referral information available [facility] Work Phone: Summary Purpose Family History No Family History Records FoundNo Family History Records FoundNo Family History Records Found Advance Directives Advance Directive Response Recorded Date/ Time Living Will Yes April 06, 2023 10:59pm Power of Cath Lab Radiology Technician Yes April 06 10:59pm Name of Medical Power of Cath Lab Radiology Technician Stacey Pelletier April 06, 2023 10:59pm Advance Directive Response Recorded Date/ Time Do you have a Healthcare Power of Cath Lab Radiology Technician? No February 25, 2025 3:03pm Chief Complaint and Reason for Visit Chief Complaint Knife Wound to L Leg Chief Complaint Admit Date OBSTRUCTING UROLITHIASIS February 25, 2025 7:34pm Additional Source Comments (unrecognized sect ion and content) No Status Records FoundNo Status Records FoundNo Status Records Found INFORMATION SOURCE (unrecogn ized section and content) DATE CREATED AUTHOR 09/21/2018 [facility] ([place]) DATE CREATED AUTHOR AUTHOR'S ORGANIZ ATION 09/25/2018 [facility] DATE CREATED AUTHOR AUTHOR'S ORGANIZ ATION 04/07/2023 [facility] Care Teams (unrecognized sec tion and content) Team Status: Active Member Role Status Dates [facility] Primary Care Provider Active Team Status: Active Member Role Status Dates [facility] Primary Care Provider Active Start: February 25, 2025 Dr. Live Pollock , DO Emergency Provider Activ e Start: February 25, 2025 Dr. Korey Myers MD Admit Provider Active Start: February 25, 2025 Dr. Korey Myers MD Attending Provider Active Start: February 25, 2025 Dr. Korey Myers MD Referring Provider Active Start: February 25, 2025 Team Status: Active Member Role Status Dates [facility] Primary Care Provider Active Team Status: Inactive Member Role Status Dates Dr. Demetris Tatum MD Emergency Provider Active [facility] Primary Care Provider Active Team Status: Active Member Role Status Dates [facility] Primary Care Provider Active Start: February 25, 2025 Dr. Live Pollock DO Emergency Provider Activ e Start: February 25, 2025 Dr. Korey Myers MD Admit Provider Active Start: February 25, 2025 Dr. Korey Myers MD Attending Provider Active Start: February 25, 2025 Dr. Korey Myers MD Referring Provider Active Start: February 25, 2025 Goals (unrecognized section and content) Goals may be documented in a n alternate sectionGoals may be documented in an alternate section FOR RECORDS PERTAINING TO PATIENTS WHO ARE OR HAVE BEEN ENROLLED IN A CHEMICAL DEPENDENCY/SUBSTANCEABUSE PROGRAM, SOME INFORMATION MAY BE OMITTED. This clinical summary was aggregated from multiple sources. Caution should be exercised in using it in the provision of clinical care. This summary normalizes information from multiple sources, and as a consequence, information in this document may materially change the coding, format and clinical context of patient data. In addition, data may be omitted in some cases. CLINICAL DECISIONS SHOULD BE BASED ON THE PRIMARY CLINICAL RECORDS. [facility]. provides no warranty or guarantee of the accuracy or completeness of information in this document.
--- NOTE | 2025-02-26 07:38 | PCM.HP.STD ---
HPI - General General Date of Admission: 02/25/25 Date of Service: 02/25/25 Chief Complaint: intractable left flank pain HPI Narrative DARYL PELLETIER, is a 45 M who presents with a 6 mm stone in the mid left ureter, had intractable pain in the emergency room the ear doctor has been to admit the patient because of the couldn't get home for pain control so patient was admitted plan to taken the surgery today for cystoscopy left stent placement to alleviate the obstruction and that will get him some set up for shockwave lithotripsy the machine is available. [facility], [facility] Medical History Bipolar disorder Anxiety Depression Kidney stones Smoker Migraines PTSD (post-traumatic stress disorder) Home Medications ?Medication ?Instructions ?Recorded ?Last Taken ?Type NK 02/25/25 Unknown History Allergy/AdvReac Type Severity Reaction Status Date / Time Penicillins Allergy PT UNSURE Verified 02/25/25 14:38 OF REACTION Social History Smoking Status: Current every day smoker tobacco type: cigarettes ROS Constitutional Constitutional: Denies chills, fever(s) or malaise Eyes Eyes: Denies blurry vision or change in vision ENT HEENT: Reports none Cardiovascular Cardiovascular: Denies chest pain or palpitations Respiratory/Chest Respiratory/Chest: Denies cough or shortness of breath with exertion Gastrointestinal Gastrointestinal: Denies abdominal pain, constipation or diarrhea Musculoskeletal Musculoskeletal: Denies back pain, joint stiffness or joint swelling Integumentary Integumentary: Denies dry skin, jaundice, lesions or rash Neurologic Neurologic: Denies confusion, syncope or weakness Psychiatric Psychiatric: Reports none; Denies anxiety or depression Endocrine Endocrinology: Denies excessive sweating, fatigue or flushing Hematologic/Lymphatic Hematologic/Lymphatic: Denies anemia, easy bleeding or easy bruising Vital Signs Vital Signs Vital Signs: 02/25/25 14:37 02/25/25 16:37 02/25/25 18:00 Temperature 98.2 F Temperature Source Oral Pulse Rate 97 78 72 Pulse Strength Respiratory Rate 16 20 H 16 Respiratory Effort Respiratory Depth Respiratory Pattern Blood Pressure 136/86 H 158/98 H Blood Pressure Mean 102 118 Blood Pressure Source Blood Pressure Position Blood Pressure Location Pulse Ox 100 Oxygen Delivery Method Room Air 02/25/25 19:48 02/25/25 20:06 02/25/25 20:16 Temperature 98.0 F 97.6 F L Temperature Source Oral Pulse Rate 85 88 Pulse Strength Respiratory Rate 18 16 Respiratory Effort Normal Respiratory Depth Normal Respiratory Pattern Normal Blood Pressure 167/92 H 118/51 L Blood Pressure Mean 117 73 Blood Pressure Source Blood Pressure Position Blood Pressure Location Pulse Ox 97 96 Oxygen Delivery Method Room Air Room Air 02/25/25 20:16 02/25/25 20:16 02/25/25 21:40 Temperature 97.6 F L 97.6 F L Temperature Source Oral Oral Pulse Rate 88 88 Pulse Strength Normal (2+) Respiratory Rate 16 16 Respiratory Effort Respiratory Depth Respiratory Pattern Blood Pressure 118/51 L 118/51 L Blood Pressure Mean 73 73 Blood Pressure Source Monitor Blood Pressure Position Semi-Fowlers Blood Pressure Location Right Arm Pulse Ox 96 96 Oxygen Delivery Method Room Air Room Air 02/25/25 23:59 02/26/25 02:28 02/26/25 03:51 Temperature 98 F 97.9 F Temperature Source Oral Oral Pulse Rate 77 89 Pulse Strength Respiratory Rate 16 16 Respiratory Effort Normal Respiratory Depth Normal Respiratory Pattern Normal Blood Pressure 148/80 H 148/88 H Blood Pressure Mean 102 108 Blood Pressure Source Monitor Monitor Blood Pressure Position Semi-Fowlers Semi-Fowlers Blood Pressure Location Right Arm Right Arm Pulse Ox 94 98 Oxygen Delivery Method Room Air Room Air Room Air Weight Weight: 94.347 kg Body Mass Index (BMI) 28.2 Physical Exam Const alert and oriented x3 General Appearance: cooperative HEENT normocephalic and head/scalp atraumatic Eyes PERRL and EOMs intact bilaterally Neck supple, no JVD and no carotid bruits Resp normal respiratory effort, normal air movement and clear to auscultation bilaterally Cardio regular rate and no murmurs GI normal to inspection, nondistended, normoactive bowel sounds and soft to palpation Extremity normal capillary refill General Extremity: no tenderness to palpation of joints or extremities; Negative for edema Skin no rashes or lesions noted and no wounds General Skin Exam: no breakdown Neuro CN's II-XII intact bilaterally Psych affect normal Appearance: appropriate Results Lab / Micro Data 02/25/25 15:29 02/25/25 15:29 Labs: Laboratory Results - last 24 hr 02/25/25 15:29: WBC 13.9 H, RBC 5.21, Hgb 14.6, Hct 41.4, MCV 79.5 L, MCH 28.0, MCHC 35.3, RDW Std Deviation 34.8 L, RDW Coeff of Tom 12.1, Plt Count 242, MPV 9.1, Immature Gran % (Auto) 0.400, Neut % (Auto) 74.7 H, Lymph % (Auto) 15.3 L, [place] % (Auto) 8.3, Eos % (Auto) 1.0, Baso % (Auto) 0.3, Absolute Neuts (auto) 10.4 H, Absolute Lymphs (auto) 2.13, Nucleated RBC % 0, Sodium 138, Potassium 3.7, Chloride 104, Carbon Dioxide 21.7, Anion Gap 12, BUN 13, Creatinine 1.46 H, Estim Creat Clear Calc 70.87, Est GFR (MDRD) Non-Af 60, BUN/Creatinine Ratio 9.2 L, Glucose 101 H, Lactic Acid 2.0, Calcium 8.9, Total Bilirubin 0.49, AST 29, ALT 17, Alkaline Phosphatase 68, Total Protein 6.2, Albumin 3.9, Globulin 2.3, Albumin/Globulin Ratio 1.7 02/25/25 17:25: Urine Color Yellow, Urine Clarity Sl. Cloudy, Urine pH 7.0, Ur Specific [place] 1.010, Urine Protein 30 H, Urine Glucose (UA) Normal, Urine Ketones Negative, Urine Occult Blood 250 H, Urine Nitrite Negative, Urine Bilirubin Negative, Urine Urobilinogen Normal, Ur Leukocyte Esterase 25 H, Urine RBC 50-100 SEEN, Urine WBC 0-5 SEEN, Ur Squamous Epith Cells 0-5 SEEN, Urine Bacteria 0 SEEN, Urine Mucus 0 SEEN 02/25/25 20:29: Lactic Acid < 1.0 Imaging Radiology Impression Testicular Ultrasound 02/25/25 15:10 IMPRESSION: NORMAL SCROTAL ULTRASOUND. Reading Location: [id number] Abdomen/Pelvis CT 02/25/25 15:40 IMPRESSION: Obstructing stone within the left mid-distal ureter at the ureteropelvic junction with mild left hydroureteronephrosis and delayed nephrogram. Reading Location: [facility] Assessment & Plan Assessment/Plan (1) Left ureteral calculus: PLAN: admit for pain control plan for cystoscopy left stent placement today
--- NOTE | 2025-02-26 08:30 | RAD_ITS ---
EXAM: XR Abdomen, 1 View CLINICAL INDICATION: STONE TECHNIQUE: Frontal supine view of the abdomen/pelvis. COMPARISON: No relevant prior studies available. FINDINGS: GASTROINTESTINAL TRACT: Unremarkable. No dilation. ORGANS: Stool burden limits the evaluation for subtle renal calculi. No obvious nephrolithiasis. BONES/JOINTS: Unremarkable. No acute fracture. RAD/Abdomen Single View IMPRESSION: Stool burden limits the evaluation for subtle renal calculi. No obvious nephro lithiasis. Reading Location: [facility]
--- NOTE | 2025-02-26 10:54 | PRE.ANES_ITS ---
ASA Classification* ASA Classification ASA Classification: 2 Assessment & Plan Anesthesia* Anesthesia Assessment Anesthesia Assessment: Discussed sedation and/or anesthesia options, risks, benefits, and alternatives with patient/parents/legal guardian/POA. Questions invited. The patient/parents/legal guardian/POA seems to understand and agrees to proceed with anesthesia plan. Reviewed the physical assessment, medical history, allergy history and patient home medications list prior to surgery/procedure/anesthetic and documented any changes. Performed airway and anesthesia risk assessments. Anesthesia Type Anesthesia Type: MAC Anesthesia Focused Assessment* Temperature: 97.7 F Pulse Rate: 81 Blood Pressure: 135/80 Respiratory Rate: 18 Pulse Ox: 98 Airway Assessment Mouth opens: >3 cm Mallampati Score: II Labs Anesthesia Preop lab: CBC WBC 13.9 K/mm3 (4.4-11.0) H 02/25/25 15: 5 RBC 5.21 M/mm3 (4.6-6.2) 02/25/25 15:02/25/25 Hgb 14.6 g/dL (13.0-16.5) 02/25/25 15:02/25/25 Hct 41.4 % (40-54) 02/25/25 15:02/25/25 Plt Count 242 K/mm3 (150-450) 02/25/25 15:02/25/25 CHEMISTRY Potassium 3.7 mmol/L (3.3-5.1) 02/25/25 15:02/25/25 Sodium 138 mmol/L (133-145) 02/25/25 15:02/25/25 BUN 13 mg/dL (4-19) 02/25/25 15:02/25/25 Creatinine 1.46 mg/dL (0.70-1.20) H 02/25/25 15: Glucose 101 mg/dL (70-99) H 02/25/25 15:02/25/25 COAG Pre-Assessment Diagnosis/Proposed Procedure Planned Operative Procedure(s): Cystoscopy ureteral stent placement. 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 When Was Last Pacemaker Check QUESTION #4 FULL TEXT: You/Your Family Experience fever (hyperthermia) with Anesthesia Last Oral Intake Last Oral intake: Last Oral Intake NPO since Meds taken in AM with sips of water? 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 Has anyone observed you stop No 02/25/25 20:06 breathing during sleep? STOP Results Negative 02/25/25 20:06 QUESTION #5 FULL TEXT : Do you snore loudly (louder than talking or can be heard through closed doors)? 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 Specify any problems Hx of Preganancy in last 3 N/A 02/25/25 20:06 Months Nurse Filling Out Transfusion TWOLF 02/25/25 20:06 & Questions: Date: 02/25/25 02/25/25 20:06 Time: 20:09 02/25/25 20:06 Patient unable to answer at this time (ie. 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: /Reproductive Hx- swinging cut off saw operator Hx Now No 02/25/25 20:16 Gestational Age (in weeks): EDC: Hx Hx Para Hx Section SAB No 02/25/25 20:16 Active Medications Active Medications: Current Medications Generic Name Dose Route Start Last Admin Trade Name Freq PRN Reason Stop Dose Admin Sodium Chloride 250 mls @ 15 mls/hr 02/25/25 20:01 IV .[id number] PRN Saline Flush Sodium Chloride 250 mls @ 15 mls/hr 02/25/25 20:01 IV .[id number] PRN Additional IVPB Infusion Sodium Chloride 1,000 mls @ 50 mls/hr 02/25/25 20:25 02/25/25 20:32 IV 50 mls/hr .Q20H BOAZ Administration Iopamidol 0 ml 02/25/25 15:15 02/25/25 20:32 Contrast Allergy Safety Check IV Not Given X1 BOAZ Ketorolac Tromethamine 15 mg 02/25/25 20:22 Ketorolac 15 Mg/Ml Vial IV 03/02/25 20:23 Q6H PRN PRN Pain Score 1-10 Morphine Sulfate 2 mg 02/25/25 20:22 Morphine 2 Mg/Ml Syringe IV Q4H PRN PRN Pain Score 1-10 Ondansetron HCl 4 mg 02/25/25 20:22 Ondansetron 4 Mg/2 Ml Vial IV Q6H PRN PRN NAUSEA/VOMITING Sodium Chloride 10 - 40 ml 02/25/25 20:01 0.9% Saline Lock 10 Ml Syringe IV UD PRN SALINE FLUSH PFSH Medical History Bipolar disorder Anxiety Depression Kidney stones Smoker Migraines PTSD (post-traumatic stress disorder) Home Medications ?Medication ?Instructions ?Recorded ?Last Taken ?Type NK 02/25/25 Unknown History Allergy/AdvReac Type Severity Reaction Status Date / Time Penicillins Allergy PT UNSURE Verified 02/25/25 14:38 OF REACTION Social History Smoking Status: Current every day smoker tobacco type: cigarettes Review of Systems (Anesthesia) ROS Narrative System reviewed and no additional complaints, except as documented.
[2025-02-26] MEDS: Lactated Ringers 1,000 ML 15 ML IV (11:24)
[2025-02-26] MEDS: Cefazolin 2 GM in 0.9% Normal Saline (100mL Bag) 100 ML IV (11:35)
--- NOTE | 2025-02-26 11:36 | DCINST_ITS ---
Discharge Instructions Diet Discharge Diet: No restrictions DC O2, CPAP, BIPAP needs Home O2 Discharge instructions: No Dressing / Incision Discharge Activity: Return to Normal Activity and May Not Drive (while taking narcotic pain medications.) Dressing / Incision Call your doctor if you observe: Fever of 101 or Higher Follow Up Care Please Follow Up With: Korey Myers MD When: Call [phone] for an appointment Test Results: Test results from this visit will be discussed in further detail at your follow- up appointment, if applicable. Discharge Plan Admission Admit Date/Time: 02/26/25 07:23 Primary Reason for Your Visit: kidney stone Attending Provider: Korey Myers Primary Care Provider: [facility] Discharge Orders/Prescriptions Prescriptions: New ciprofloxacin HCl [Cipro] 500 mg tablet 500 mg PO BID Qty: 6 0RF oxycodone 5 mg tablet 5 mg PO Q6H PRN (Reason: pain) 3 Days Qty: 20 0RF Referrals / Follow Up: Korey Myers MD [Med Staff - Active Staff] - [facility] [Primary Care Provider] - Disposition Disposition (needs filled in before D/C Order can be placed): Home, Self Care
--- NOTE | 2025-02-26 11:38 | PCM.OPRPT ---
Operative Report (Standard) Operative Information Date of Procedure: 02/26/25 Pre-Operative Diagnosis: Obstructing stone in the left mid ureter Post-Operative Diagnosis: The same Surgery/Procedure Performed: Cystoscopy left stent placement asic verification engineer: No Type of Anesthesia: General RN Documented Start/Stop Times: Operation Date: 02/26/25 12:00 Case Time Into Pre-Op 02/26/25 11:05 Out of Pre-Op 02/26/25 11:30 Procedure Start Time: 11:38 Procedure Stop Time: 11:48 Select all DRAINS/GRAFTS/IMPLANTS that apply: Drains Drain details: Left stent Estimated Blood Loss: None Specimen collected: No Description of surgery: Patient taken back to the operating room this with induction of anesthesia placed in dorsolithotomy position penis testicles prepped and draped in usual fashion with about a 21 Italian rigid cystourethroscope cannulated the left ureter with the Glidewire advanced a wire past the stone and the put a stent up the left kidney once the stent was in good position pulled the wire and the stent: The stone was in the mid ureter. The kidney bladder good position patient ascetic reversed taken back to PACU good condition plan to bring him back for shockwave lithotripsy once his machine is available. Surgical Findings: Stent placed 6fr x26 cm Complications Complications: No Admit VTE Documentation VTE Present on Admission: No VTE Mechan Device Prophylaxis: SCD's VTE Pharm Prophylaxis ordered?: No
--- NOTE | 2025-02-26 12:04 | PCM.POST.ANE ---
Anesthesia: Postop Eval I Current Vital Signs Temperature: 98.5 F Pulse Rate: 97 Blood Pressure: 123/67 Respiratory Rate: 16 Pulse Ox: 95 Oxygen Delivery Method: Room Air Assessment Airway patent: Yes Spontaneous unlabored respirations: Yes Mental status: Awake and Calm nausea: No Vomiting: No Anesthesia Complication: No Fluid Hydration Crystalloid volume administer (ml): 200 Total IV fluid infused: 200 Progress Note Anesthesia document: Postop Eval 1 completed: Yes
--- NOTE | 2025-02-26 12:54 | POSTOPAN2_ITS ---
Anesthesia Postop Eval I Sum Postop Eval Completion status Anesthesia document: Postop Eval 1 completed: Yes Anesthesia Postop Eval I Summary Anesthesia Postop Eval I Summary: Anesthesia Postop Eval I: Assessment Summary Airway patent Yes 02/26/25 12:05 FARM PRODUCT PURCHASER.[email or web address] Spontaneous unlabored Yes 02/26/25 12:05 FARM PRODUCT PURCHASER.GDOTT respirations Mental status Awake,Calm 02/26/25 12:05 FARM PRODUCT PURCHASER.GDOTT nausea No 02/26/25 12:05 FARM PRODUCT PURCHASER.GDOTT Vomiting No 02/26/25 12:05 FARM PRODUCT PURCHASER.GDOTT Anesthesia Postop Eval I: Fluid Summary Crystalloid volume administer 200 02/26/25 12:05 FARM PRODUCT PURCHASER.GDOTT (ml) Colloids volume administered ( ml) Blood Product volume administered (ml) Total IV fluid infused 200 02/26/25 12:05 FARM PRODUCT PURCHASER.GDOTT Anesthesia Postop Eval I: Summary Notes Anesthesia Complication No 02/26/25 12:05 FARM PRODUCT PURCHASER.GDOTT Anesthesia Complication Comment: Post-operative progress note Anesthesia: Postop Eval II Evaluation Mental status: Awake Pain Level: 0 nausea: No Vomiting: No
--- NOTE | 2025-02-26 12:54 | PCM.POSTANE2 ---
Anesthesia Postop Eval I Sum Postop Eval Completion status Anesthesia document: Postop Eval 1 completed: Yes Anesthesia Postop Eval I Summary Anesthesia Postop Eval I Summary: Anesthesia Postop Eval I: Assessment Summary Airway patent Yes 02/26/25 12:05 FOOD AND BEVERAGE ASSOCIATE.[email or web address] Spontaneous unlabored Yes 02/26/25 12:05 FOOD AND BEVERAGE ASSOCIATE.GDOTT respirations Mental status Awake,Calm 02/26/25 12:05 FOOD AND BEVERAGE ASSOCIATE.GDOTT nausea No 02/26/25 12:05 FOOD AND BEVERAGE ASSOCIATE.GDOTT Vomiting No 02/26/25 12:05 FOOD AND BEVERAGE ASSOCIATE.GDOTT Anesthesia Postop Eval I: Fluid Summary Crystalloid volume administer 200 02/26/25 12:05 FOOD AND BEVERAGE ASSOCIATE.GDOTT (ml) Colloids volume administered ( ml) Blood Product volume administered (ml) Total IV fluid infused 200 02/26/25 12:05 FOOD AND BEVERAGE ASSOCIATE.GDOTT Anesthesia Postop Eval I: Summary Notes Anesthesia Complication No 02/26/25 12:05 FOOD AND BEVERAGE ASSOCIATE.GDOTT Anesthesia Complication Comment: Post-operative progress note Anesthesia: Postop Eval II Evaluation Mental status: Awake Pain Level: 0 nausea: No Vomiting: No
--- OUTSIDE RECORDS SUMMARY | 2025-02-26 20:12 | XMS RPT_ITS | CCD ---
Author Organization [facility] Care Team Providers Care Window Cutter Name Role Phone DOT CRUMP Unavailable Unavailable PHYSICIAN, NONE Unavailable Unavailable RADHA CHUA (BRACELET FORM COVERER) Unavailable [place], [place] Primary Care Provider [facility] Phill ROMAN, Dr. Mancini Emergency Provider Louis KATE, Dr. Korey Lua Admit Provider Louis KATE, Dr. Korey Lua Attending Provider Louis KATE, Dr. Korey Lua Referring Provider [place], [place] Primary Care Provider [facility] Phill ROMAN, Dr. Mancini Emergency Provider Louis KATE, Dr. Korey Lua Admit Provider Louis KATE, Dr. Korey Lua Attending Provider Louis KATE, Dr. Korey Lua Referring Provider Korey Myers Admitting Unavailable Korey Myers Attending Unavailable Korey Myers Referring [place] Primary Care Unavailable Allergies Allergy Classification Reported Allergen(s) Allergy Type Date of Onset Reaction(s) Facility (5 sources) Penicillins; Translations: [PENICILLINS] Propensity to adverse reactions to drug (disorder) 8 AOF, PT UNSURE OF REACTION [facility] Repository Medications Current Medications Medication Drug Class(es) Dates Sig (Normalized) Sig (Original) ciprofloxacin 500 mg oral tablet (1 source) Quinolone Antimicrobial Start: 02-26-2025 take 1 tablet by mouth twice daily Ciprofloxacin Hcl (Cipro) 500 mg tablet Active 500 mg PO TWICE A DAY February 26, 2025 12:00am Mcadoo (Nk) (1 source) Start: 02-25-2025 [place]adoo (Nk) Active February 25, 2025 12:00am oxyCODONE hydrochloride 5 mg oral tablet (1 source) Opioid Agonist Start: 02-26-2025 take 1 tablet by mouth every six hours as needed for pain Oxycodone 5 mg tablet Active 5 mg PO EVERY 6 HOURS as needed for pain 20 3 February 26, 2025 Completed/Discontinued Medications Medication Drug Class(es) Dates Sig (Normalized) Sig (Original) FLUoxetine 20 mg oral tablet (3 sources) Serotonin Reuptake Inhibitor Start: 09-02-2022 End: 02-25-2025 take 1 tablet by mouth once daily Fluoxetine 20 mg Tablet Discontinued 20 mg PO DAILY September 02, 2022 1:00am February 25, 2025 3:04pm hydrOXYzine pamoate 50 mg oral capsule (3 sources) Antihistamine Start: 09-02-2022 End: 02-25-2025 take 1 capsule by mouth twice daily as needed for anxiety Hydroxyzine Pamoate 50 mg Capsule Discontinued 50 mg PO TWICE A DAY as needed for Anxiety September 02, 2022 1:00am February 25, 2025 3:04pm prazosin 5 mg oral capsule (3 sources) alpha-Adrenergic Pratik Start: 09-02-2022 End: 02-25-2025 take 1 capsule by mouth at bedtime Prazosin 5 mg Capsule Discontinued 5 mg PO AT BEDTIME September 02, 2022 1:00am February 25, 2025 3:04pm Problems Problem Classification Problem Date Documented Date Episodic/Chronic Alcohol-related disorders (3 sources) Alcohol abuse; Translations: [Alcohol abuse, uncomplicated] 09-11-2022 Chronic Calculus of urinary tract (3 sources) Ureteric stone; Translations: [Calculus of ureter] Onset: 02-26-2025 02-26-2025 Episodic Impulse control disorders, NEC (3 sources) Homicidal thoughts; Translations: [Homicidal ideations] 09-11-2022 Episodic Mood disorders (3 sources) Depressive disorder; Translations: [Depression with suicidal ideation] 09-11-2022 Chronic Open wounds of extremities (3 sources) Laceration of thigh; Translations: [Laceration without foreign body, left thigh, initial encounter] 04-06-2023 Episodic Other lower respiratory disease (1 source) Pleurodynia; Translations: [Pleurodynia] Onset: 08-30-2018 Episodic Substance-related disorders (3 sources) Methamphetamine abuse; Translations: [Other stimulant abuse, uncomplicated] 09-11-2022 Chronic Results Test Name Value Interpretation Reference Range Facility Abdomen Single Viewon 2024 Abdomen Single View [facility] Imaging Services [address] [place] [address] Abdomen Single View MR#: [id number] Acct: [id number] Name: DARYL PELLETIER W Rep #: [id number] : 1980 M 45 From: Abdi Pitt MD PCP: [facility] Status: ADM DANTE Study: Abdomen Single View Date of Exam: 02/26/25 Exam# [id number] Ordering Dr: Korey Myers MD EXAM: XR Abdomen, 1 View CLINICAL INDICATION: STONE TECHNIQUE: Frontal supine view of the abdomen/pelvis. COMPARISON: No relevant prior studies available. FINDINGS: GASTROINTESTINAL TRACT: Unremarkable. No dilation. ORGANS: Stool burden limits the evaluation for subtle renal calculi. No obvious nephrolithiasis. BONES/JOINTS: Unremarkable. No acute fracture. RAD/Abdomen Single View IMPRESSION: Stool burden limits the evaluation for subtle renal calculi. No obvious nephrolithiasis. Reading Location: [facility] CC: Dr. Korey Myers MD; [facility] Continuing Education Director: Signed Normal [facility] Discharge Instructionon 02-17 Discharge Instruction [facility] Medical Records Department [address] [place] [address] Instructions for Home/Discharge Instructions 02/26/25 1136 MR#: [id number] Acct: [id number] Name: DARYL PELELTIER Rep #: [id number] : 1980 45 From: Korey Myers MD PCP: [facility] Status:ADM DANTE Discharge Instructions Diet Discharge Diet: No restrictions DC O2, CPAP, BIPAP needs Home O2 Discharge instructions: No Dressing / Incision Discharge Activity: Return to Normal Activity and May Not Drive (while taking narcotic pain medications.) Dressing / Incision Call your doctor if you observe: Fever of 101 or Higher Follow Up Care Please Follow Up With: Korey Myers MD When: Call [phone] for an appointment Test Results: Test results from this visit will be discussed in further detail at your follow-up appointment, if applicable. Discharge Plan Admission Admit Date/Time: 02/26/25 07:23 Primary Reason for Your Visit: kidney stone Attending Provider: Korey Myers Primary Care Provider: [facility] Discharge Orders/Prescriptions Prescriptions: New ciprofloxacin HCl [Cipro] 500 mg tablet 500 mg PO BID Qty: 6 0RF oxycodone 5 mg tablet 5 mg PO Q6H PRN (Reason: pain) 3 Days Qty: 20 0RF Referrals / Follow Up: Korey Myers MD [Med Staff - Active Staff] - [facility] [Primary Care Provider] - Disposition Disposition (needs filled in before D/C Order can be placed): Home, Self Care 02/26/25 3266 Korey Myers MD CC: [facility] Signed [facility] MR/POSTOP.[facility] 02-26-2025 MR/POSTOP.[facility] Medical Records Department [address] [place] [address] Anesthesia Postop Eval I 02/26/25 1204 MR#: [id number] Acct: [id number] Name: DARYL PELLETIER Rep #: [id number] : 1980 45 From: Peyton Alejandra CRNA PCP: [facility] Status:ADM DANTE Y Race: C Location: [place] [address] Anesthesia: Postop Eval I Current Vital Signs Temperature: 98.5 F Pulse Rate: 97 Blood Pressure: 123/67 Respiratory Rate: 16 Pulse Ox: 95 Oxygen Delivery Method: Room Air Assessment Airway patent: Yes Spontaneous unlabored respirations: Yes Mental status: Awake and Calm nausea: No Vomiting: No Anesthesia Complication: No Fluid Hydration Crystalloid volume administer (ml): 200 Total IV fluid infused: 200 Progress Note Anesthesia document: Postop Eval 1 completed: Yes 02/26/25 1205 Date Peyton Dotterer COSTUME CUTTER Cosigner Signature: Date CC: Signed Normal [facility] MR/GIBZLIRT0me 02-26-2025 MR/POSTOPAN2 [facility] Medical Records Department [address] [facility] [place] [address] Anesthesia Postop Eval II 02/26/25 1254 MR#: [id number] Acct: [id number] Name: DARYL PELLETIER Rep #: [id number] : 1980 45 From: Jomar Kingston MD PCP: [facility] Status:ADM DANTE Y Race: C Location: [place] [id number] Anesthesia Postop Eval I Sum Postop Eval Completion status Anesthesia document: Postop Eval 1 completed: Yes Anesthesia Postop Eval I Summary Anesthesia Postop Eval I Summary: Anesthesia Postop Eval I: Assessment Summary Airway patent Yes 02/26/25 12:05 [email or web address] [email or web address] Spontaneous unlabored Yes 02/26/25 12:05 [email or web address] [email or web address] respirations Mental status Awake,Calm 02/26/25 12:05 [email or web address] [email or web address] nausea No 02/26/25 12:05 [email or web address] [email or web address] Vomiting No 02/26/25 12:05 [email or web address] [email or web address] Anesthesia Postop Eval I: Fluid Summary Crystalloid volume administer 200 02/26/25 12:05 [email or web address] [email or web address] (ml) Colloids volume administered ( ml) Blood Product volume administered (ml) Total IV fluid infused 200 02/26/25 12:05 [email or web address] [email or web address] Anesthesia Postop Eval I: Summary Notes Anesthesia Complication No 02/26/25 12:05 [email or web address] Anesthesia Complication Comment: Post-operative progress note Anesthesia: Postop Eval II Evaluation Mental status: Awake Pain Level: 0 nausea: No Vomiting: No 02/26/251253 Date Jomar Kingston MD Cosigner Signature: Date CC: Signed Normal [facility] Operative Reporton 5 Operative Report [facility] Medical Records Department [address] [place] [address] Operative Report 02/26/25 1138 MR#: [id number] Acct: [id number] Name: DARYL PELLETIER Rep #: [id number] : 1980 45 From: Korey Myers MD PCP: [facility] Status:ADM DANTE Location: [place] [address] Operative Report (Standard) Operative Information Date of Procedure: 02/26/25 Pre-Operative Diagnosis: Obstructing stone in the left mid ureter Post-Operative Diagnosis: The same Surgery/Procedure Performed: Cystoscopy left stent placement forest fire equipment operator: No Type of Anesthesia: General RN Documented Start/Stop Times: Operation Date: 02/26/25 12:00 Case Time Into Pre-Op 02/26/25 11:05 Out of Pre-Op 02/26/25 11:30 Procedure Start Time: 11:38 Procedure Stop Time: 11:48 Select all DRAINS/GRAFTS/IMPLANTS that apply: Drains Drain details: Left stent Estimated Blood Loss: None Specimen collected: No Description of surgery: Patient taken back to the operating room this with induction of anesthesia placed in dorsolithotomy position penis testicles prepped and draped in usual fashion with about a 21 Faroese rigid cystourethroscope cannulated the left ureter with the Glidewire advanced a wire past the stone and the put a stent up the left kidney once the stent was in good position pulled the wire and the stent: The stone was in the mid ureter. The kidney bladder good position patient ascetic reversed taken back to PACU good condition plan to bring him back for shockwave lithotripsy once his machine is available. Surgical Findings: Stent placed 6fr x26 cm Complications Complications: No Admit VTE Documentation VTE Present on Admission: No VTE Mechan Device Prophylaxis: SCD's VTE Pharm Prophylaxis ordered?: No 02/26/25 1150 Cosigner Signature (if applicable): CC: Dr. Korey Myers MD; [facility] Signed Normal [facility] Abdomen/Pelvis W IV Cont ONL Yon 02-25-2025 Abdomen/Pelvis W IV Cont ONLY [facility] Imaging Services [address] [place], [place] [address] Abdomen/Pelvis W IV Cont ONLY MR#: [id number] Acct: [id number] Name: DARYL PELLETIER Rep #: [id number] : 1980 M 45 From: Hilary Marinelli nd, MD PCP: [facility] Status: REG ER Study: Abdomen/Pelvis W IV Cont ONLY Date of Exam: Exam# [id number] Ordering Dr: Live Pollock DO PROCEDURE: ABDOMEN/PELVIS W IV CONT ONLY [...] left hydroureteronephrosis and delayed nephrogram. Reading Location: [id number] CC: Dr. Live Pollock, ; [facility] Continuing Education Director: Signed Normal [facility] Absolute lymphocyte countOrd ered By: Live Pollock on 02-25-2025 Lymphocytes Auto (Unsp spec) [#/Vol] 2.13 10*3/uL 0.83-4.51 [facility] Absolute neutrophil countOrd ered By: Live Pollock on 02-25-2025 Neutrophils (Bld) [#/Vol] 10.4 10*3/uL High 2.0-7.7 [facility] Anion gap in Serum or Plasma Ordered By: Live Pollock on 02-25-2025 Anion gap [Moles/Vol] 12 mmol/L 5-15 [facility] Automated lymphocyte count a s percentage of total leukocytesOrdered By: Live Pollock on 02-25-2025 Lymphocytes/100 WBC Auto (Unsp spec) 15.3 % Low 19-41 [facility] BUN/creatinine ratioOrdered By: Live Pollock on 02-25-2025 Urea nitrogen/Creatinine [Mass ratio] 9.2 mg/mg Low 10-20 [facility] Basophil percentageOrdered B y: Live Pollock on 02-25-2025 Basophils/100 WBC (Bld) 0.3 % 0-1 [facility] Bilirubin Test strip Ql (U)O rdered By: Live Pollock on 02-25-2025 Bilirubin Ql (U) Negative Negative [facility] Bilirubin, totalOrdered By: Live Pollock on 02-25-2025 Bilirubin [Mass/Vol] 0.49 mg/dL 0.00-1.30 [facility] CBC W/Diff, Automatedon Absolute Lymph 2.13 X10 3/uL Normal 0.83-4.51 [facility] Comment on above: Performed By: #### L 100.0100 #### [facility] [address] [place], [address] Absolute Neut 10.4 X10 3/uL High 2.0-7.7 [facility] Comment on above: Performed By: #### L 100.0100 #### [facility] [address] [place], [address] Basophils/100 WBC (Bld) 0.3 % Normal 0-1 [facility] Comment on above: Performed By: #### L 100.0100 #### [facility] [address] [place], [address] Eosinophils/100 WBC (Bld) 1.0 % Normal 0-5 [facility] Comment on above: Performed By: #### L 100.0100 #### [facility] [address] [place], [address] Erythrocyte distribution width (RBC) [Ratio] 12.1 % Normal 11.6-14.6 [facility] Comment on above: Performed By: #### L 100.0100 #### [facility] [address] [place], [address] Hematocrit (Bld) [Volume fraction] 41.4 % Normal 40-54 [facility] Comment on above: Performed By: #### L 100.0100 #### [facility] [address] [place], [address] Hemoglobin (Bld) [Mass/Vol] 14.6 g/dL Normal 13.0-16.5 [facility] Comment on above: Performed By: #### L 100.0100 #### [facility] [address] [place], [address] IG% 0.400 Normal 0.0-0.9 [facility] Comment on above: Result Comment: IG% - Immature Granulocytes (promyelocytes, myelocytes and metamyelocytes) > 1% indicates that a LEFT SHIFT is Present. Performed By: #### L 100.0100 #### [facility] [address] [place], [address] Lymphocytes/100 WBC (Bld) 15.3 % Low 19-41 [facility] Comment on above: Performed By: #### L 100.0100 #### [facility] [address] [place], [address] MCH (RBC) [Entitic mass] 28.0 pg Normal 27.0-32.0 [facility] Comment on above: Performed By: #### L 100.0100 #### [facility] [address] [place], [address] MCHC (RBC) [Mass/Vol] 35.3 g/dL Normal 32-36 [facility] Comment on above: Performed By: #### L 100.0100 #### [facility] [address] [place], [address] MCV (RBC) [Entitic vol] 79.5 fL Low 80-94 [facility] Comment on above: Performed By: #### L 100.0100 #### [facility] [address] [place], [address] Monocytes/100 WBC (Bld) 8.3 % Normal 0-10 [facility] Comment on above: Performed By: #### L 100.0100 #### [facility] [address] [place], [address] Neutrophils/100 WBC (Bld) 74.7 % High 47-70 [facility] Comment on above: Performed By: #### L 100.0100 #### [facility] [address] [place], [address] Nucleated RBC (Bld) [#/Vol] 0 10*3/uL Normal 0-5 [facility] Comment on above: Performed By: #### L 100.0100 #### [facility] [address] [place], [address] Platelet mean volume (Bld) [Entitic vol] 9.1 fL Normal 6.2-12.0 [facility] Comment on above: Performed By: #### L 100.0100 #### [facility] [address] [place], [address] Platelets (Bld) [#/Vol] 242 10*3/uL Normal 150-450 [facility] Comment on above: Performed By: #### L 100.0100 #### [facility] [address] [place], [address] RBC (Bld) [#/Vol] 5.21 10*6/uL Normal 4.6-6.2 [facility] Comment on above: Performed By: #### L 100.0100 #### [facility] [address] [place], [address] RDW SD 34.8 fl Low 35.1-43.9 [facility] Comment on above: Performed By: #### L 100.0100 #### [facility] [address] [place], [address] WBC (Bld) [#/Vol] 13.9 10*3/uL High 4.4-11.0 [facility] Comment on above: Performed By: #### L 100.0100 #### [facility] [address] [place], [address] Carbon dioxide, total [Moles /volume] in Central venous bloodOrdered By: Live Pollock on 02-25-2025 CO2 [Moles/Vol] 21.7 mmol/L 21.0-32.0 [facility] Chloride assayOrdered By: Tiago Pollock on 02-25-2025 Chloride [Moles/Vol] 104 mmol/L 98-108 [facility] Comprehensive Metabolic Prof ilon 02-25-2025 Albumin [Mass/Vol] 3.9 g/dL Normal 3.5-5.0 [facility] Comment on above: Performed By: #### L 500.4050, L503.6005 #### [facility] [address] [place], [address] Albumin/Globulin [Mass ratio] 1.7 {ratio} Normal 0.9-2.4 [facility] Comment on above: Performed By: #### L 500.4050, L503.6005 #### [facility] [address] [place], [address] ALK PHOS 68 U/L Normal 40-129 [facility] Comment on above: Performed By: #### L 500.4050, L503.6005 #### [facility] [address] [place], [address] ALT [Catalytic activity/Vol] 17 U/L Normal <=46 [facility] Comment on above: Performed By: #### L 500.4050, L503.6005 #### [facility] [address] [place], [address] AST [Catalytic activity/Vol] 29 U/L Normal <=37 [facility] Comment on above: Performed By: #### L 500.4050, L503.6005 #### [facility] [address] [place], [address] Bilirubin [Mass/Vol] 0.49 mg/dL Normal 0.00-1.30 [facility] Comment on above: Performed By: #### L 500.4050, L503.6005 #### [facility] [address] [place], [address] BUN/CRE 9.2 RATIO Low 10-20 [facility] Comment on above: Performed By: #### L 500.4050, L503.6005 #### [facility] [address] [place], [address] Calcium [Mass/Vol] 8.9 mg/dL Normal 7.6-11.0 [facility] Comment on above: Performed By: #### L 500.4050, L503.6005 #### [facility] [address] [place], [address] Chloride [Moles/Vol] 104 mmol/L Normal 98-108 [facility] Comment on above: Performed By: #### L 500.4050, L503.6005 #### [facility] [address] [place], [address] CO2 [Moles/Vol] 21.7 mmol/L Normal 21.0-32.0 [facility] Comment on above: Performed By: #### L 500.4050, L503.6005 #### [facility] [address] [place], [address] Creatinine [Mass/Vol] 1.46 mg/dL High 0.70-1.20 [facility] Comment on above: Performed By: #### L 500.4050, L503.6005 #### [facility] [address] [place], [address] ECRCL 70.87 ml/min Normal 50-250 [facility] Comment on above: Performed By: #### L 500.4050, L503.6005 #### [facility] [address] [place], [address] GAP 12 Normal 5-15 [facility] Comment on above: Performed By: #### L 500.4050, L503.6005 #### [facility] [address] [place], [address] GFR/1.73 sq M.predicted among non-blacks MDRD (S/P/Bld) [Vol rate/Area] 60 mL/min/{1.73_m2} Normal >60 [facility] Comment on above: Result Comment: mL/m in/1.73m2 CKD-EPI Creatinine Equation (2020) Performed By: #### L 500.4050, L503.6005 #### [facility] [address] [place], [address] Globulin (S) [Mass/Vol] 2.3 g/dL Normal 2.2-4.2 [facility] Comment on above: Performed By: #### L 500.4050, L503.6005 #### [facility] [address] [place], [address] Glucose [Mass/Vol] 101 mg/dL High 70-99 [facility] Comment on above: Performed By: #### L 500.4050, L503.6005 #### [facility] [address] [place], [address] Potassium [Moles/Vol] 3.7 mmol/L Normal 3.3-5.1 [facility] Comment on above: Performed By: #### L 500.4050, L503.6005 #### [facility] [address] [place], [address] Sodium [Moles/Vol] 138 mmol/L Normal 133-145 [facility] Comment on above: Performed By: #### L 500.4050, L503.6005 #### [facility] [address] [place], [address] T PROT 6.2 g/dL Normal 5.9-8.4 [facility] Comment on above: Performed By: #### L 500.4050, L503.6005 #### [facility] [address] [place], [address] Urea nitrogen [Mass/Vol] 13 mg/dL Normal 4-19 [facility] Comment on above: Performed By: #### L 500.4050, L503.6005 #### [facility] [address] [place], [address] Emergency Department Summary on 02-25-2025 Emergency Department Summary [facility] Medical Records Department [address] [place] [address] Emergency Department Summary 02/25/25 MR#: [id number] Acct: [id number] Name: DARYL PELLETIER Rep #: [id number] : 1980 45 From: Live Pollock DO PCP: [facility] Status:REG ER Location: ED ADDENDUM by Dr. Esther Pederson DO on 02/25/25 at 193 Patient signed out to me pending urinalysis results. Urinalysis not consistent with infection. Patient does require redosed with further morphine. Due to his intractable pain and concern for possible [place] in the setting of obstructing kidney stone will discuss admission. Case discussed with Dr. Myres who accept the patient for admission. Patient is agreeable. Patient's pain is addressed with morphine in the ER. Disposition???admission Diagnosis intractable flank pain Obstructing kidney stone with hydronephrosis Elevated creatinine 02/25/251930 Cosigner Signature (if applicable): cc: [facility] * Signed HPI History of Present Illness Chief [...] on the chart. Reviewed. Physical exam: Gen: A O x3, NAD Head: Normocephalic, atraumatic Eyes: No [...] intact Psych: Cooperative, appropriate mood and affect [facility] Medical History PTSD (post-traumatic stress disorder) Home Medications ???Medication ???Instructions ???Recorded ???Last Taken ???Type NK 02/25/25 Unknown History Allergy/AdvReac Type Severity [...] testicle. See physical exam findings. Differential diagnosis includes but is not limited to diverticulitis, hernia, testicular cancer, epididymitis, UTI, urolithiasis. NS bolus, morphine, Zofran ordered for symptoms. Laboratory workup ordered including CT abdomen pelvis and testicular ultrasound. CBC shows a leukocytosis of 13.9. No anemia. CMP relatively [...] will be signed out to oncoming physician. P (more content not included)... Normal [facility] Eosinophil percentageOrdered By: Liverasheeda Pollock on 02-25-2025 Eosinophils/100 WBC (Bld) 1.0 % 0-5 [facility] Erythrocyte distribution wid th ratioOrdered By: [facility] on 02-25-2025 Erythrocyte distribution width (RBC) [Ratio] 12.1 % 11.6-14.6 [facility] Erythrocyte distribution wid th standard deviationOrdered By: [facility] Honeycutt on 02-25-2025 Erythrocyte distribution width (RBC) [Ratio] 34.8 fl Low 35.1-43.9 [facility] Glomerular filtration rate ( GFR) estimation/1.73 sq m using serum, plasma, or whole bOrdered By: [facility] on 02-25-2025 GFR/1.73 sq M.predicted among non-blacks MDRD (S/P/Bld) [Vol rate/Area] 60 mL/min/{1.73_m2} >60 [facility] Comment on above: mL/min/1.73m2 CKD-EP I Creatinine Equation (2020) Hematocrit Auto (Bld) [Volum e fraction]Ordered By: Live Phill on 02-25-2025 Hematocrit (Bld) [Volume fraction] 41.4 % 40-54 [facility] Hemoglobin measurementOrdere d By: Barton Phill on 02-25-2025 Hemoglobin (Bld) [Mass/Vol] 14.6 g/dL 13.0-16.5 [facility] Immature granulocytes/100 WB C Auto (Bld)Ordered By: Live Pollock on 02-25-2025 Immature granulocytes/100 WBC (Bld) 0.400 % 0.0-0.9 [facility] Comment on above: IG% - Immature Granu locytes (promyelocytes, myelocytes and metamyelocytes) > 1% indicates that a LEFT SHIFT is Present. Ketones Test strip Ql (U)Ord ered By: Live Pollock on 02-25-2025 Ketones Ql (U) Negative Negative [facility] Laboratory - Chemistry and C hemistry - challengeOrdered By: Live Pollock on 02-25-2025 AST [Catalytic activity/Vol] 29 U/L <38 [facility] Lactic Acidon 02-25-2025 Lactate [Moles/Vol] mmol/L Normal 0.0-2.0 [facility] Comment on above: Performed By: #### L 503.6003 #### [facility] [address], [place], [id number] Lactate [Moles/Vol] 2.0 mmol/L Normal 0.0-2.0 [facility] Comment on above: Order Comment: Y Result Comment: Crit ical Result(s) Called at: 1617 by:??MURPHY DAVENPORT Results read back by same. Performed By: #### L 500.4050, L503.6006 #### [facility] [address], [place], [id number] Lactic acid measurementOrder ed By: Live Pollock on 02-25-2025 Lactate [Moles/Vol] mmol/L 0.0-2.0 [facility] Lactate [Moles/Vol] 2.0 mmol/L 0.0-2.0 [facility] Comment on above: Critical Result(s) C alled at: 1617 by: MURPHY DAVENPORT Results read back by same. MCV (mean corpuscular volume ) determinationOrdered By: Live Pollock on 02-25-2025 MCV (RBC) [Entitic vol] 79.5 fL Low 80-94 [facility] Mean corpuscular hemoglobin (MCH) determinationOrdered By: Live Pollock on 02-25-2025 MCH (RBC) [Entitic mass] 28.0 pg 27.0-32.0 [facility] Mean corpuscular hemoglobin concentration (MCHC) determinationOrdered By: Live Pollock on 02-25-2025 MCHC (RBC) [Mass/Vol] 35.3 g/dL 32-36 [facility] Mean platelet volume determi nationOrdered By: Live Pollock on 02-25-2025 Platelet mean volume (Bld) [Entitic vol] 9.1 fL 6.2-12.0 [facility] Microscopic analysis of urin e for red blood cells (RBC)Ordered By: Live Pollock on 02-25-2025 Microscopic analysis of urine for red blood cells (RBC) 50-100 SEEN /hpf 0-5 [facility] Monocyte percentageOrdered B y: Live Pollock on 02-25-2025 Monocytes/100 WBC (Bld) 8.3 % 0-10 [facility] Mucus LM Ql (Urine sed)Order ed By: Live Pollock on 02-25-2025 Mucus Ql (Urine sed) 0 SEEN /hpf [facility] Neutrophil percentageOrdered By: Live Pollock on 02-25-2025 Neutrophils/100 WBC (Bld) 74.7 % High 47-70 [facility] Nitrite Test strip Ql (U)Ord ered By: Live Pollock on 02-25-2025 Nitrite Ql (U) Negative Negative [facility] Nucleated red blood cell per centageOrdered By: Live Pollock on 02-25-2025 Nucleated RBC/100 WBC (Bld) [Ratio] 0 % 0-5 [facility] Platelet countOrdered By: Tiago Pollock on 02-25-2025 Platelets (Bld) [#/Vol] 242 10*3/uL 150-450 [facility] Potassium measurement (mass/ volume)Ordered By: Live Pollock on 02-25-2025 Potassium (Unsp spec) [Mass/Vol] 3.7 mmol/L 3.3-5.1 [facility] Protein Test strip Ql (U)Ord ered By: Live Pollock on 02-25-2025 Protein Ql (U) 30 mg/dl High Negative [facility] RBC Auto (Bld) [#/Vol]Ordere d By: Live Pollock on 02-25-2025 RBC (Bld) [#/Vol] 5.21 10*6/uL 4.6-6.2 [facility] Serum creatinine measurement (mass/volume)Ordered By: Live Pollock on 02-25-2025 Creatinine [Mass/Vol] 1.46 mg/dL High 0.70-1.20 [facility] Serum globulin measurementOr dered By: Live Pollock on 02-25-2025 Globulin (S) [Mass/Vol] 2.3 g/dL 2.2-4.2 [facility] Serum glucose measurement (m ass/volume)Ordered By: Live Pollock on 02-25-2025 Glucose [Mass/Vol] 101 mg/dL High 70-99 [facility] Serum or plasma alanine nascimento otransferase (ALT) measurementOrdered By: Live Pollock on 02-25-2025 ALT [Catalytic activity/Vol] 17 U/L <47 [facility] Serum or plasma albumin lillie urement (mass/volume)Ordered By: Live Honeycutt on 02-25-2025 Albumin [Mass/Vol] 3.9 g/dL 3.5-5.0 [facility] Serum or plasma albumin/glob ulin mass ratioOrdered By: Live Pollock on 02-25-2025 Albumin/Globulin [Mass ratio] 1.7 {ratio} 0.9-2.4 [facility] Serum or plasma alkaline winter sphatase measurementOrdered By: Live Pollock on 06-09-2025 ALP [Catalytic activity/Vol] 68 U/L 40-129 [facility] Serum or plasma calcium lillie urement (mass/volume)Ordered By: Live Honeycutt on 02-25-2025 Calcium [Mass/Vol] 8.9 mg/dL 7.6-11.0 [facility] Serum or plasma urea nitroge n measurement (mass/volume)Ordered By: Live Pollock on 02-25-2025 Urea nitrogen [Mass/Vol] 13 mg/dL 4-19 [facility] Sodium levelOrdered By: Latrell Pollock on 02-25-2025 Sodium [Moles/Vol] 138 mmol/L 133-145 [facility] Squamous epithelial cells de tection in urine sediment by light microscopyOrdered By: Live Pollock on 02-25-2025 Epithelial cells.squamous LM Ql (Urine sed) 0-5 SEEN /hpf 0-5 [facility] Testicular with Arterial Eloy won 02-25-2025 Testicular with Arterial Flow [facility] Imaging Services [address], [place] [address] Testicular with Arterial Flow MR#: [id number] Acct: [id number] Name: DRAYL PELLETIER Alfonso Rep #: [id number] : 1980 M 45 From: Janina Oconnell PCP: [facility] Status: REG ER Study: Testicular with Arterial Flow Date of Exam: Exam# [id number] Ordering Dr: Live Pollock DO PROCEDURE: TESTICULAR WITH ARTERIAL FLOW 02/25/2025 [...] Flow IMPRESSION: NORMAL SCROTAL ULTRASOUND. Reading Location: [id number] CC: Dr. Live Pollock, ; [facility] Continuing Education Director: Signed Normal [facility] Total proteinOrdered By: Rahat Pollock on 02-25-2025 Protein [Mass/Vol] 6.2 g/dL 5.9-8.4 [facility] Urinalysis, Completeon 02-25 EPI,SQUAMOUS 0-5 SEEN Normal 0-5 [facility] Comment on above: Order Comment: CLEAN CATCH Performed By: #### L 400.0001 #### [facility] [address] [place], [address] RBC 50-100 SEEN Normal 0-5 [facility] Comment on above: Order Comment: CLEAN CATCH Performed By: #### L 400.0001 #### [facility] [address] [place], [address] WBC 0-5 SEEN Normal 0-5 [facility] Comment on above: Order Comment: CLEAN CATCH Performed By: #### L 400.0001 #### [facility] [address] [place], [address] BACTERIA 0 SEEN Normal None Seen [facility] Comment on above: Order Comment: CLEAN CATCH Performed By: #### L 400.0001 #### [facility] [address] [place], [address] Mucus Ql (Urine sed) 0 SEEN Normal [facility] Comment on above: Order Comment: CLEAN CATCH Performed By: #### L 400.0001 #### [facility] [address] [place], [address] Urine clarityOrdered By: Rahat Pollock on 02-25-2025 Clarity (U) Sl. Cloudy Clear [facility] Urine color determinationOrd ered By: Live Pollock on 02-25-2025 Color (U) Yellow Yellow [facility] Urine glucose detectionOrder ed By: Live Pollock on 02-25-2025 Glucose Ql (U) Normal mg/dl Normal [facility] Urine leukocyte esterase det ection by dipstickOrdered By: Live Pollock on 02-25-2025 Leukocyte esterase Test strip Ql (U) 25 /ul High Negative [facility] Urine pHOrdered By: Live Nieto on 02-25-2025 pH (U) 7.0 [pH] 5.0 - 8.0 [facility] Urine sediment bacteria coun t by microscopy (number/high power field)Ordered By: Live Pollock on 02-25-2025 Bacteria LM.HPF (Urine sed) [#/Area] 0 /[HPF] None Seen [facility] Urine specific gravity measu rementOrdered By: Live Pollock on 02-25-2025 Specific gravity (U) [Rel density] 1.010 1.002-1.03 0 [facility] Urine urobilinogen measureme ntOrdered By: Live Pollock on 02-25-2025 Urobilinogen Ql (U) Normal mg/dl Normal [facility] White blood cell (WBC) count Ordered By: Live Pollock on 02-25-2025 WBC (Bld) [#/Vol] 13.9 10*3/uL High 4.4-11.0 [facility] White blood cell countOrdere d By: Live Pollock on 02-25-2025 White blood cell count 0-5 SEEN /hpf 0-5 [facility] XR TIBIA/FIBULA 2 VIEWS LEFT on 09-21-2018 [...] AM Sign Date: 09/21/2018 9:17:54 AM Normal [facility] ([place]) CNOVon 08-30-2018 [facility] Office Visit (UCTR) ----DARYL PELLETIER ([id number]) 1980 MDate Time Provider Xgvvkoqmuj48/12/18 3:45 PM RADHA DODD (BRACELET FORM COVERER) [facility] During your visit today, we recorded the following information about you: Temperature Pulse Respiration Blood pressure 98 degrees 76/minute 16/minute 132/84 Weight 98 kgRadha Dodd APRN.BRANDS EDITOR 08/30/2018 4:49 PM SignedFRACTURESGENERAL INFORMATION:A fracture is [...] discharge coming from under the cast.Radha Dodd APRN.BRANDS EDITOR 08/30/2018 5:35 PM SignedSubjectiveHPIPatient presents with:Rib Injury: [...] with PCP for pain management, a Dr. Cuba in [place].- Encourage deep breathing and analgesics PRN- XR [...] Reviewed: Never ReviewedReason for Visit: Rib Injury [58992] Cmt: right rib pain after lifting x 2 weeksPrimary Visit Diagnosis:Rib pain on right side [R07.81]Order(s):XR RIBS/CHEST 3V AP RIB/OBLS/CXR RT [[id number]] Order #: [id number] FUTUREPrescriptions as of 08/30/2018 Sig: PROZAC ORAL [...] wet, it can be dried with a balance and hairspring assembler. 4. Do not put pressure on any [...] improve.Follow-up and Disposition History RecordedLetter Kimberly Dodd APRN.[facility] Urgent [address] [facility] [address]Ezfq: [phone]/12/2018Yojana Pelletier[address] [facility] [address]In Whom it May Concern:This is to certify that Daryl Pelletier was seen at our office for medicalcare. Daryl may return to work on 08/31/2018.If you have any questions please feel free to call.Sincerely:Radha Dodd APRN.CNPEncounter Number: [id number] Status:Closed by RADHA DODD on 08/30/18 Normal [facility] PROGRESSon 08-30-2018 Protein mass conc HNO ID: [id number] thor: Radha Quarles (Optician Manager) TayService: (none)Author Type: Nurse PractitionerType: Progress NotesFiled: [...] occur. Patient agreeable to treatment plan.Radha Dodd APRN.BRANDS EDITOR Normal [facility] Protein mass conc HNO ID: [id number] thor: Jennifer Jean-Baptiste RtService: (none)Author Type: (none)Type: Progress NotesFiled: 08/30/2018 4:32 PMNote Text: Radiology Service Progress NotePATIENT NAME: Daryl PelletierMRN: [id number] OF SERVICE: August 30, 2018TIME: 4:23 PMPATIENT IDENTITY VERIFICATION COMPLETED USING TWO (2) METHODS: Patientconfirmed name verbally and Date of .PATIENT GENDER DATA: MalePATIENT RELEVANT IMPLANT DATA REVIEWED: Not ApplicableRADIOLOGY DEPARTMENT: General X-ray: Exam(s) Completed: Rib X-Ray: RightPERIPHERAL IV DATA: Not applicableSIGNED BY: Jennifer Jean-Baptiste RtDieudonne 2017 4:23 PM Normal [facility] XR RIB/CHST 3V AP RIB/OBL/CH [facility] [...] Date/Time: Aug 30 2018 4:35PDictated by : MARI VAZQUEZ MDThis examination was interpreted and the report reviewed and electronically signed by: MARI VAZQUEZ MD on Aug 30 2018 4:40PM [id number] Normal [facility] Vital Signs Date Time Vital Sign Value Performing Clinician Devan arvizu 02-26-2025 12:47-0400 Body temperature 97.5 [degF] [facility] 02-26-2025 12:47-0400 Diastolic blood pressure 65 mm[Hg] [facility] 02-26-2025 12:47-0400 Heart rate 82 /min [facility] 02-26-2025 12:47-0400 Respiratory rate 17 /min [facility] 02-26-2025 12:47-0400 SaO2% (BldA) [Mass fraction] 95 % [facility] 02-26-2025 12:47-0400 Systolic blood pressure 113 mm[Hg] [facility] 02-25-2025 20:06-0400 Body height 182.88 cm [facility] 02-25-2025 20:06-0400 Body mass index (BMI) [Ratio] 28.2 kg/m2 [facility] 02-25-2025 20:06-0400 Body weight 94.34 kg [facility] 02-25-2025 19:48-0400 Body temperature 98 [degF] [facility] 02-25-2025 19:48-0400 Diastolic blood pressure 92 mm[Hg] [facility] 02-25-2025 19:48-0400 Heart rate 85 /min [facility] 02-25-2025 19:48-0400 Respiratory rate 18 /min [facility] 02-25-2025 19:48-0400 SaO2% (BldA) [Mass fraction] 97 % [facility] 02-25-2025 19:48-0400 Systolic blood pressure 167 mm[Hg] [facility] 02-25-2025 14:37-0400 Body height 182.88 cm [facility] 02-25-2025 14:37-0400 Body mass index (BMI) [Ratio] 27.5 kg/m2 [facility] 02-25-2025 14:37-0400 Body weight 92.07 kg [facility] 04-06-2023 22:58-0400 Body height 182.88 cm [facility] 04-06-2023 22:58-0400 Body mass index (BMI) [Ratio] 29.2 kg/m2 [facility] 04-06-2023 22:58-0400 Body temperature 97.1 [degF] [facility] 04-06-2023 22:58-0400 Body weight 97.8 kg [facility] 04-06-2023 22:58-0400 Diastolic blood pressure 94 mm[Hg] [facility] 04-06-2023 22:58-0400 Heart rate 93 /min [facility] 04-06-2023 22:58-0400 Respiratory rate 20 /min [facility] 04-06-2023 22:58-0400 SaO2% (BldA) [Mass fraction] 98 % [facility] 04-06-2023 22:58-0400 Systolic blood pressure 134 mm[Hg] [facility] Encounters Encounter Date Encounter Type Care Provider Facility Start: 02-26-2025 End: 02-26-2025 ambulatory Korey Myers Facility:[facility] Start: 02-26-2025 End: 02-26-2025 Evaluation and management of inpatient Dr. Korey Myers MD [facility] Work Phone: Start: 02-26-2025 End: 02-26-2025 observation encounter [facility] Work Phone: Start: 02-25-2025 Evaluation and management of inpatient Dr. Korey Myers MD [facility] Work Phone: Start: 02-25-[address] [facility] Work Phone: Start: 04-06-2023 End: 04-07-2023 Emergency department patient visit [facility] Work Phone: Start: 09-21-2018 End: 09-21-2018 Emergency department patient visit [facility] Facility: Start: 08-30-2018 End: 09-25-2018 Patient encounter procedure RADHA Quarles (CHAU CHUA [facility] Procedures Date Procedure Procedure Detail Performing Clinician Start: 02-26-2025 Insertion of stent i nto ureter [facility] Start: 02-26-[address] [facility] Start: 02-26-2025 Plain X-ray abdomen [facility] Start: 02-25-2025 Urnls dip stick/tabl et reagent auto microscopy [facility] Start: 02-25-2025 Computed tomography of abdomen and pelvis with intravenous contrast [facility] Start: 02-25-2025 Estimated creatinine clearance [facility] Start: 02-25-2025 Ultrasound of scrotu m with Doppler and color flow imaging [facility] Plan of Treatment Date Care Activity Detail Author Start: 02-26-2025 Patient discharge [facility] Start: 02-26-2025 Admission procedure [facility] Start: 02-25-2025 Application of intermittent pneumatic compression device [facility] Start: 02-25-2025 Measuring intake and output [facility] Start: 02-25-2025 Following clinical pathway protocol [facility] Start: 02-25-2025 Hospital admission, emergency, from emergency room, medical nature [facility] Lactic acid measurement [facility] Patient Education ED Laceration Extremity [facility] Work Phone: Patient referral [facility] Work Phone: Payers Date Payer Category Payer Unknown [id number] 2018 Self-pay 1980 Unknown [id number] Unknown [id number] Unknown [id number] [id number] [id number] Social History Date Type Detail Facility Start: 04-06-2023 Tobacco smoking stat us [facility] Unknown if ever smoked [facility] Start: 1980 Sex Assigned At Male [facility] Start: 02-25-2025 End: 02-25-2025 Tobacco smoking status NHIS Smokes tobacco daily (finding) [facility] Goals Date Patient Goal Desired Activity /State Functional Status Date Assessment Result Facility 02-26-2025 Functional status Ambulates [facility] Work Phone: Mental Status Date Assessment Result Facility 02-26-2025 Cognitive function Voice/Name [facility] Work Phone: Clinical Notes 04-06-2023 to 02-26-2025 Note Date & Type Note Facility 02-26-2025 Consult note [facility] 02-26-2025 Discharge summary [facility] 02-26-2025 Consult note Note Date/Time February 26, 2025 12:05[facility] Medical Records Department [address] [place] [address] Anesthesia Postop Eval I 02/26/25 1204 MR#: [id number] Acct: [id number] Name: DARYL PELLETIER Rep #:[id number] : 1980 45 From: [address] PCP: [facility] Status:ADM DANTE Y Race: C Location: [place] [address] Anesthesia: Postop Eval I Current Vital Signs Temperature: 98.5 F Pulse Rate: 97 Blood Pressure: 123/67 Respiratory Rate: 16 Pulse Ox: 95 Oxygen Delivery Method: Room Air Assessment Airway patent: Yes Spontaneous unlabored respirations: Yes Mental status: Awake and Calm nausea: No Vomiting: No Anesthesia Complication: No Fluid Hydration Crystalloid volume administer (ml): 200 Total IV fluid infused: 200 Progress Note Anesthesia document: Postop Eval 1 completed: Yes 02/26/251204 <Electronically signed by Peyton Alejandra CRNA> Date _ Peyton Alejandra CRNA Cosigner Signature: Date CC: ~ Signed [facility] Work Phone: 1(200) 479-587506-10-2025 Discharge summary Author Korey Myers [facility] Note Date/Time February 26, 2025 2:24 pm [facility] Medical Records Department [address] [place] [address] Instructions for Home/Discharge Instructions 02/26/25 1136 MR#: [id number] Acct: [id number] Name: DARYL PELLETIER Rep #:[id number] : 1980 45 From: Korey Myers MD PCP: [facility] Status:ADM DANTE Discharge Instructions Diet Discharge Diet: No restrictions DC O2, CPAP, BIPAP needs Home O2 Discharge instructions: No Dressing / Incision Discharge Activity: Return to Normal Activity and May Not Drive (while taking narcotic pain medications.) Dressing / Incision Call your doctor if you observe: Fever of 101 or Higher Follow Up Care Please Follow Up With: Korey Myers MD When: Call [phone] for an appointment Test Results: Test results from this visit will be discussed in further detail at your follow- up appointment, if applicable. Discharge Plan Admission Admit Date/Time: 02/26/25 07:23 Primary Reason for Your Visit: kidney stone Attending Provider: Korey Myers Primary Care Provider: [facility] Discharge Orders/Prescriptions Prescriptions: New ciprofloxacin HCl [Cipro] 500 mg tablet 500 mg PO BID Qty: 6 0RF oxycodone 5 mg tablet 5 mg PO Q6H PRN (Reason: pain) 3 Days Qty: 20 0RF Referrals / Follow Up: Korey Myers MD [Med Staff - Active Staff] - [facility] [Primary Care Provider] - Disposition Disposition (needs filled in before D/C Order can be placed): Home, Self Care 02/26/25 1136<Electronically signed by Korey Myers MD>Korey Myers MD CC: [facility] ~ Signed [facility] Work Phone: 1(584) 150-625106-10-2025 Consult note Author Jomar Kingston [facility] Note Date/Time February 26, 2025 10:5 5am [facility] Medical Records Department [address] [place] [address] Pre-Anesthesia Evaluation 02/26/25 1054 MR#: [id number] Acct: [id number] Name: PRABHUDARYL W Rep #:[id number] : 1980 45 From: Jomar Kingston MD PCP: [facility] Status:ADM DANTE Y Race: C [place] [facility] [place] -1 ASA Classification* ASA Classification ASA Classification: 2 Assessment & Plan Anesthesia* Anesthesia Assessment Anesthesia Assessment: Discussed sedation and/or anesthesia options, risks, benefits, and alternatives with patient/parents/legal guardian/POA. Questions invited. The patient/parents/legal guardian/POA seems to understand and agrees to proceedwith anesthesia plan. Reviewed the physical assessment, medical history, allergy history and patient home medications list prior to surgery/procedure/anesthetic and documented any changes. Performed airway and anesthesia risk assessments. Anesthesia Type Anesthesia Type: MAC Anesthesia Focused Assessment* Temperature: 97.7 F Pulse Rate: 81 Blood Pressure: 135/80 Respiratory Rate: 18 Pulse Ox: 98 Airway Assessment Mouth opens: >3 cm Mallampati Score: II Labs Anesthesia Preop lab: CBC WBC 13.9 K/mm3 (4.4-11.0) H 02/25/25 15: 5 RBC 5.21 M/mm3 (4.6-6.2) 02/25/25 15:02/25/25 Hgb 14.6 g/dL (13.0-16.5) 02/25/25 15:02/25/25 Hct 41.4 % (40-54) 02/25/25 15:02/25/25 Plt Count 242 K/mm3 (150-450) 02/25/25 15:29 02/25/25 CHEMISTRY Potassium 3.7 mmol/L (3.3-5.1) 02/25/25 15:29 02/25/25 Sodium 138 mmol/L (133-145) 02/25/25 15:29 02/25/25 BUN 13 mg/dL (4-19) 02/25/25 15:29 02/25/25 Creatinine 1.46 mg/dL (0.70-1.20) H 02/25/25 15:29 Glucose 101 mg/dL (70-99) H 02/25/25 15:29 02/25/25 COAG Pre-Assessment Diagnosis/Proposed Procedure Planned Operative Procedure(s): Cystoscopy ureteral stent placement. 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 When Was Last Pacemaker Check QUESTION #4 FULL TEXT: You/Your Family Experience fever (hyperthermia) with Anesthesia Last Oral Intake Last Oral intake: Last Oral Intake NPO since Meds taken in AM with sips of water? 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 - band salvager: PONV - band salvager Female HX of Motion Sickness HX of N/V After Surgery Non-Smoker Duration of Surgery greater than 60 minutes Number of Risk Factors PONV Score Height & Weight Height & Weight: Anesthesia: Height & Weight Height 6 ft 02/25/25 20:06 Weight: 94.347 kg 02/25/25 20:06 Body Mass Index (BMI) 28.2 02/25/25 20:06 Respiratory Assessment Respiratory Assessment - band salvager: Respiratory Tract Infection Hx - band salvager Hx Respiratory Tract Infection No 02/25/25 20:16 STOP Sleep Apnea STOP Sleep Apnea - band salvager: STOP Sleep Apnea - band salvager Hx Hypertension No 02/25/25 20:06 Hx Sleep Apnea No 02/25/25 20:06 CPAP BIPAP Do you snore loudly (louder Yes 02/25/25 20:06 than talking or can be heard Do you often feel tired/ No 02/25/25 20:06 fatigued/ sleepy during daytime? Has anyone observed you stop No 02/25/25 20:06 breathing during sleep? STOP Results Negative 02/25/25 20:06 QUESTION #5 FULL TEXT : Do you snore loudly (louder than talking or can be heard through closed doors)? 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 Specify any problems Hx of Preganancy in last 3 N/A 02/25/25 20:06 Months Nurse Filling Out Transfusion TWOLF 02/25/25 20:06 & Questions: Date: 02/25/25 02/25/25 20:06 Time: 20:09 02/25/25 20:06 Patient unable to answer at this time (ie. confused, unrespo /Reproduction History /Reproductive History - band salvager: /Reproductive Hx- band salvager Hx Now No 02/25/25 20:16 Gestational Age (in weeks): EDC: Hx Hx Para Hx Section SAB No 02/25/25 20:16 Active Medications Active Medications: Current Medications Generic Name Dose Route Start Last Admin Trade Name Freq PRN Reason Stop Dose Admin Sodium Chloride 250 mls @ 15 mls/hr 02/25/25 20:01 IV .[id number] PRN Saline Flush Sodium Chloride 250 mls @ 15 mls/hr 02/25/25 20:01 IV .[id number] PRN Additional IVPB Infusion Sodium Chloride 1,000 mls @ 50 mls/hr 02/25/25 20:25 02/25/25 20:32 IV 50 mls/hr .Q20H BOAZ Administration Iopamidol 0 ml 02/25/25 15:15 02/25/25 20:32 Contrast Allergy Safety Check IV Not Given X1 BOAZ Ketorolac Tromethamine 15 mg 02/25/25 20:22 Ketorolac 15 Mg/Ml Vial IV 03/02/25 20:23 Q6H PRN PRN Pain Score 1-10 Morphine Sulfate 2 mg 02/25/25 20:22 Morphine 2 Mg/Ml Syringe IV Q4H PRN PRN Pain Score 1-10 Ondansetron HCl 4 mg 02/25/25 20:22 Ondansetron 4 Mg/2 Ml Vial IV Q6H PRN PRN NAUSEA/VOMITING Sodium Chloride 10 - 40 ml 02/25/25 20:01 0.9% Saline Lock 10 Ml Syringe IV UD PRN SALINE FLUSH PFSH Medical History Bipolar disorder Anxiety Depression Kidney stones Smoker Migraines PTSD (post-traumatic stress disorder) Home Medications ?Medication ?Instructions ?Recorded ?Last Taken ?Type NK 02/25/25 Unknown History Allergy/AdvReac Type Severity Reaction Status Date / Time Penicillins Allergy PT UNSURE Verified 02/25/25 14:38 OF REACTION Social History Smoking Status: Current every day smoker tobacco type: cigarettes Review of Systems (Anesthesia) ROS Narrative System reviewed and no additional complaints, except as documented. 02/26/25 1055 <Electronically signed by Jomar Kingston MD > Date _ Jomar Kingston MD Cosigner Signature: Date CC: ~ Signed [facility] Work Phone: 1(879) 363-736106-10-2025 Consult note [facility] Medical Records Department [address] [place] [id number] Anesthesia Postop Eval I 02/26/25 1204 MR#: [id number] Acct: [id number] Name: DARYL PELLETIER Rep #:[id number] : 1980 45 From: [address] PCP: [facility] Status:ADM DANTE Y Race: C Location: [place] [address] Anesthesia: Postop Eval I Current Vital Signs Temperature: 98.5 F Pulse Rate: 97 Blood Pressure: 123/67 Respiratory Rate: 16 Pulse Ox: 95 Oxygen Delivery Method: Room Air Assessment Airway patent: Yes Spontaneous unlabored respirations: Yes Mental status: Awake and Calm nausea: No Vomiting: No Anesthesia Complication: No Fluid Hydration Crystalloid volume administer (ml): 200 Total IV fluid infused: 200 Progress Note Anesthesia document: Postop Eval 1 completed: Yes 02/26/25 1205 COSTUME CUTTER> Date _ Peyton Alejandra COSTUME CUTTER Cosigner Signature: Date CC: ~ Signed [facility]06-10-2025 Procedure note [facility] Medical Records Department [address] [place] [address] Operative Report 02/26/25 1138 MR#: [id number] Acct: [id number] Name: DARYL PELLETIER Rep #:[id number] : 1980 45 From: Korey Myers MD PCP: [facility] Status:ADM DANTE Location: [place] [address] Operative Report (Standard) Operative Information Date of Procedure: 02/26/25 Pre-Operative Diagnosis: Obstructing stone in the left mid ureter Post-Operative Diagnosis: The same Surgery/Procedure Performed: Cystoscopy left stent placement forest fire equipment 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: No Type of Anesthesia: General RN Documented Start/Stop Times: Operation Date: 02/26/25 12:00 Case Time Into Pre-Op 02/26/25 11:05 Out of Pre-Op 02/26/25 11:30 Procedure Start Time: 11:38 Procedure Stop Time: 11:48 Select all DRAINS/GRAFTS/IMPLANTS that apply: Drains Drain details: Left stent Estimated Blood Loss: None Specimen collected: No Description of surgery: Patient taken back to the operating room this with induction of anesthesia placed in dorsolithotomyposition penis testicles prepped and draped in usual fashion with about a 21 Faroese rigid cystourethroscope cannulated the left ureter with the Glidewire advanced a wire past the stone and the put a stent up the left kidney once the stent was in good position pulled the wire and the stent: The stone was in the mid ureter. The kidney bladder good position patientascetic reversed taken back to PACUgood condition plan to bring him back for shockwave lithotripsy once his machine is available. Surgical Findings: Stent placed 6fr x26 cm Complications Complications: No Admit VTE Documentation VTE Present on Admission: No VTE Mechan Device Prophylaxis: SCD's VTE Pharm Prophylaxis ordered?: No 02/26/25 1150 Cosigner Signature (if applicable): CC: Dr. Korey Myers MD; [facility]~ Signed [facility]06-10-2025 Consult note [facility] Medical Records Department [address] [place] [address] Pre-Anesthesia Evaluation 02/26/25 1054 MR#: [id number] Acct: [id number] Name: DARYL PELLETIER Rep #:[id number] : 1980 45 From: Jomar Kingston MD PCP: [facility] Hospital Status:ADM DANTE Y Race: C Location: [place] [address] ASA Classification* ASA Classification ASA Classification: 2 Assessment & Plan Anesthesia* Anesthesia Assessment Anesthesia Assessment: Discussed sedation and/or anesthesia options, risks, benefits, and alternatives with patient/parents/legal guardian/POA. Questions invited. The patient/parents/legal guardian/POA seems to understand and agrees to proceedwith anesthesia plan. Reviewed the physical assessment, medical history, allergy history and patient home medications list prior to surgery/procedure/anesthetic and documented any changes. Performed airway and anesthesia risk assessments. Anesthesia Type Anesthesia Type: MAC Anesthesia Focused Assessment* Temperature: 97.7 F Pulse Rate: 81 Blood Pressure: 135/80 Respiratory Rate: 18 Pulse Ox: 98 Airway Assessment Mouth opens: >3 cm Mallampati Score: II Labs Anesthesia Preop lab: CBC WBC 13.9 K/mm3 (4.4-11.0) H 02/25/25 15: 5 RBC 5.21 M/mm3 (4.6-6.2) 02/25/25 15:29 02/25/25 Hgb 14.6 g/dL (13.0-16.5) 02/25/25 15:02/25/25 Hct 41.4 % (40-54) 02/25/25 15:02/25/25 Plt Count 242 K/mm3 (150-450) 02/25/25 15:29 02/25/25 CHEMISTRY Potassium 3.7 mmol/L (3.3-5.1) 02/25/25 15:29 02/25/25 Sodium 138 mmol/L (133-145) 02/25/25 15:29 02/25/25 BUN 13 mg/dL (4-19) 02/25/25 15:29 02/25/25 Creatinine 1.46 mg/dL (0.70-1.20) H 02/25/25 15:29 Glucose 101 mg/dL (70-99) H 02/25/25 15:29 02/25/25 COAG Pre-Assessment Diagnosis/Proposed Procedure Planned Operative Procedure(s): Cystoscopy ureteral stent placement. 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 When Was Last Pacemaker Check QUESTION #4 FULL TEXT: You/Your Family Experience fever (hyperthermia) with Anesthesia Last Oral Intake Last Oral intake: Last Oral Intake NPO since Meds taken in AM with sips of water? 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 - band salvager: PONV - band salvager Female HX of Motion Sickness HX of N/V After Surgery Non-Smoker Duration of Surgery greater than 60 minutes Number of Risk Factors PONV Score Height & Weight Height & Weight: Anesthesia: Height & Weight Height 6 ft 02/25/25 20:06 Weight: 94.347 kg 02/25/25 20:06 Body Mass Index (BMI) 28.2 02/25/25 20:06 Respiratory Assessment Respiratory Assessment - band salvager: Respiratory Tract Infection Hx - band salvager Hx Respiratory Tract Infection No 02/25/25 20:16 STOP Sleep Apnea STOP Sleep Apnea - band salvager: STOP Sleep Apnea - band salvager Hx Hypertension No 02/25/25 20:06 Hx Sleep Apnea No 02/25/25 20:06 CPAP BIPAP Do you snore loudly (louder Yes 02/25/25 20:06 than talking or can be heard Do you often feel tired/ No 02/25/25 20:06 fatigued/ sleepy during daytime? Has anyone observed you stop No 02/25/25 20:06 breathing during sleep? STOP Results Negative 02/25/25 20:06 QUESTION #5 FULL TEXT : Do you snore loudly (louder than talking or can be heard through closeddoors)? 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 Specify any problems Hx of Preganancy in last 3 N/A 02/25/25 20:06 Months Nurse Filling Out Transfusion TWOLF 02/25/25 20:06 & Questions: Date: 02/25/25 02/25/25 20:06 Time: 20:09 02/25/25 20:06 Patient unable to answer at this time (ie. confused, unrespo /Reproduction History /Reproductive History - band salvager: /Reproductive Hx- band salvager Hx Now No 02/25/25 20:16 Gestational Age (in weeks): EDC: Hx Hx Para Hx Section SAB No 02/25/25 20:16 Active Medications Active Medications: Current Medications Generic Name Dose Route Start Last Admin Trade Name Freq PRN Reason Stop Dose Admin Sodium Chloride 250 mls @ 15 mls/hr 02/25/25 20:01 IV .[id number] PRN Saline Flush Sodium Chloride 250 mls @ 15 mls/hr 02/25/25 20:01 IV .[id number] PRN Additional IVPB Infusion Sodium Chloride 1,000 mls @ 50 mls/hr 02/25/25 20:25 02/25/25 20:32 IV 50 mls/hr .Q20H BOAZ Administration Iopamidol 0 ml 02/25/25 15:15 02/25/25 20:32 Contrast Allergy Safety Check IV Not Given X1 BOAZ Ketorolac Tromethamine 15 mg 02/25/25 20:22 Ketorolac 15 Mg/Ml Vial IV 03/02/25 20:23 Q6H PRN PRN Pain Score 1-10 Morphine Sulfate 2 mg 02/25/25 20:22 Morphine 2 Mg/Ml Syringe IV Q4H PRN PRN Pain Score 1-10 Ondansetron HCl 4 mg 02/25/25 20:22 Ondansetron 4 Mg/2 Ml Vial IV Q6H PRN PRN NAUSEA/VOMITING Sodium Chloride 10 - 40 ml 02/25/25 20:01 0.9% Saline Lock 10 Ml Syringe IV UD PRN SALINE FLUSH PFSH Medical History Bipolar disorder Anxiety Depression Kidney stones Smoker Migraines PTSD (post-traumatic stress disorder) Home Medications ?Medication ?Instructions ?Recorded ?Last Taken ?Type NK 02/25/25 Unknown History Allergy/AdvReac Type Severity Reaction Status Date / Time Penicillins Allergy PT UNSURE Verified 02/25/25 14:38 OF REACTION Social History Smoking Status: Current every day smoker tobacco type: cigarettes Review of Systems (Anesthesia) ROS Narrative System reviewed and no additional complaints, except as documented. 02/26/25 1055 > Date _ Jomar Kingston MD Cosigner Signature: Date CC: ~ Signed [facility]06-10-2025 History and physical note Author Korey Myers [facility] Note Date/Time February 26, 2025 7:39 am [facility] Medical Records Department [address] [place] [address] History & Physical Exam 02/26/25 0738 MR#: [id number] Acct: [id number] Name: DARYL PELLETIER Rep #:[id number] : 1980 45 From: Korey Myers MD PCP: [facility] Hospital Status:ADM DANTE Location: [facility]3 [id number] HPI - General General Date of Admission: 02/25/25 Date of Service: 02/25/25 Chief Complaint: intractable left flank pain HPI Narrative DARYL PELLETIER, is a 45 M who presents with a 6 mm stone in the mid left ureter,had intractable pain in the emergency room the ear doctor has been to admit the patient because of the couldn't get home for pain control so patient was admitted plan to taken the surgery today for cystoscopy left stent placement to alleviate the obstruction and that will get him some set up for shockwave lithotripsy the machine is available. [facility] Medical History Bipolar disorder Anxiety Depression Kidney stones Smoker Migraines PTSD (post-traumatic stress disorder) Home Medications ?Medication ?Instructions ?Recorded ?Last Taken ?Type NK 02/25/25 Unknown History Allergy/AdvReac Type Severity Reaction Status Date / Time Penicillins Allergy PT UNSURE Verified 02/25/25 14:38 OF REACTION Social History Smoking Status: Current every day smoker tobacco type: cigarettes ROS Constitutional Constitutional: Denies chills, fever(s) or malaise Eyes Eyes: Denies blurry vision or change in vision ENT HEENT: Reports none Cardiovascular Cardiovascular: Denies chest pain or palpitations Respiratory/Chest Respiratory/Chest: Denies cough or shortness of breath with exertion Gastrointestinal Gastrointestinal: Denies abdominal pain, constipation or diarrhea Musculoskeletal Musculoskeletal: Denies back pain, joint stiffness or joint swelling Integumentary Integumentary: Denies dry skin, jaundice, lesions or rash Neurologic Neurologic: Denies confusion, syncope or weakness Psychiatric Psychiatric: Reports none; Denies anxiety or depression Endocrine Endocrinology: Denies excessive sweating, fatigue or flushing Hematologic/Lymphatic Hematologic/Lymphatic: Denies anemia, easy bleeding or easy bruising Vital Signs Vital Signs Vital Signs: 02/25/25 14:37 02/25/25 16:37 02/25/25 18:00 Temperature 98.2 F Temperature Source Oral Pulse Rate 97 78 72 Pulse Strength Respiratory Rate 16 20 H 16 Respiratory Effort Respiratory Depth Respiratory Pattern Blood Pressure 136/86 H 158/98 H Blood Pressure Mean 102 118 Blood Pressure Source Blood Pressure Position Blood Pressure Location Pulse Ox 100 Oxygen Delivery Method Room Air 02/25/25 19:48 02/25/25 20:06 02/25/25 20:16 Temperature 98.0 F 97.6 F L Temperature Source Oral Pulse Rate 85 88 Pulse Strength Respiratory Rate 18 16 Respiratory Effort Normal Respiratory Depth Normal Respiratory Pattern Normal Blood Pressure 167/92 H 118/51 L Blood Pressure Mean 117 73 Blood Pressure Source Blood Pressure Position Blood Pressure Location Pulse Ox 97 96 Oxygen Delivery Method Room Air Room Air 02/25/25 20:16 02/25/25 20:16 02/25/25 21:40 Temperature 97.6 F L 97.6 F L Temperature Source Oral Oral Pulse Rate 88 88 Pulse Strength Normal (2+) Respiratory Rate 16 16 Respiratory Effort Respiratory Depth Respiratory Pattern Blood Pressure 118/51 L 118/51 L Blood Pressure Mean 73 73 Blood Pressure Source Monitor Blood Pressure Position Semi-Fowlers Blood Pressure Location Right Arm Pulse Ox 96 96 Oxygen Delivery Method Room Air Room Air 02/25/25 23:59 02/26/25 02:28 02/26/25 03:51 Temperature 98 F 97.9 F Temperature Source Oral Oral Pulse Rate 77 89 Pulse Strength Respiratory Rate 16 16 Respiratory Effort Normal Respiratory Depth Normal Respiratory Pattern Normal Blood Pressure 148/80 H 148/88 H Blood Pressure Mean 102 108 Blood Pressure Source Monitor Monitor Blood Pressure Position Semi-Fowlers Semi-Fowlers Blood Pressure Location Right Arm Right Arm Pulse Ox 94 98 Oxygen Delivery Method Room Air Room Air Room Air Weight Weight: 94.347 kg Body Mass Index (BMI) 28.2 Physical Exam Const alert and oriented x3 General Appearance: cooperative HEENT normocephalic and head/scalp atraumatic Eyes PERRL and EOMs intact bilaterally Neck supple, no JVD and no carotid bruits Resp normal respiratory effort, normal air movement and clear to auscultation bilaterally Cardio regular rate and no murmurs GI normal to inspection, nondistended, normoactive bowel sounds and soft to palpation Extremity normal capillary refill General Extremity: no tenderness to palpation of joints or extremities; Negativefor edema Skin no rashes or lesions noted and no wounds General Skin Exam: no breakdown Neuro CN's II-XII intact bilaterally Psych affect normal Appearance: appropriate Results Lab / Micro Data 02/25/25 15:29 02/25/25 15:29 Labs: Laboratory Results - last 24 hr 02/25/25 15:29: WBC 13.9 H, RBC 5.21, Hgb 14.6, Hct 41.4, MCV 79.5 L, MCH 28.0, MCHC 35.3, RDW Std Deviation 34.8 L, RDW Coeff of Tom 12.1, Plt Count 242, MPV 9.1, Immature Gran % (Auto) 0.400, Neut % (Auto) 74.7 H, Lymph % (Auto) 15.3 L, [place] % (Auto) 8.3, Eos % (Auto) 1.0, Baso % (Auto) 0.3, Absolute Neuts (auto) 10.4 H, Absolute Lymphs (auto) 2.13, Nucleated RBC % 0, Sodium 138, Potassium 3.7, Chloride 104, Carbon Dioxide 21.7, Anion Gap 12, BUN 13, Creatinine 1.46 H,Estim Creat Clear Calc 70.87, Est GFR (MDRD) Non-Af 60, BUN/Creatinine Ratio 9.2L, Glucose 101 H, Lactic Acid 2.0, Calcium 8.9, Total Bilirubin 0.49, AST 29, ALT 17, Alkaline Phosphatase 68, Total Protein 6.2, Albumin 3.9, Globulin 2.3, Albumin/Globulin Ratio 1.7 02/25/25 17:25: Urine Color Yellow, Urine Clarity Sl. Cloudy, Urine pH 7.0, Ur Specific [place] 1.010, Urine Protein 30 H, Urine Glucose (UA) Normal, Urine Ketones Negative, Urine Occult Blood 250 H, Urine Nitrite Negative, Urine Bilirubin Negative, Urine Urobilinogen Normal, Ur Leukocyte Esterase 25 H, UrineRBC 50-100 SEEN, Urine WBC 0-5 SEEN, Ur Squamous Epith Cells 0-5 SEEN, Urine Bacteria 0 SEEN, Urine Mucus 0 SEEN 02/25/25 20:29: Lactic Acid < 1.0 Imaging Radiology Impression Testicular Ultrasound 02/25/25 15:10 IMPRESSION: NORMAL SCROTAL ULTRASOUND. Reading Location: [facility] Abdomen/Pelvis CT 02/25/25 15:40 IMPRESSION: Obstructing stone within the left mid-distal ureter at the ureteropelvic junction with mild left hydroureteronephrosis and delayed nephrogram. Reading Location: [id number] Assessment & Plan Assessment/Plan (1) Left ureteral calculus: PLAN: admit for pain control plan for cystoscopy left stent placement today 02/26/25 0739 <Electronically signed by oKrey Myers MD> Cosigner Signature (if applicable): CC: Dr. Korey Myers MD; [facility]~ Signed [facility] Work Phone: 1(141) 504-596606-10-2025 Evaluation note* Diagnosis Onset Date Resolution Status Admit Date Left ureteral calculus acute 2024 7:23am [facility] Work Phone: 1(379) 239-512206-10-2025 Radiology Diagnostic study note [facility] Imaging Services [address] [place] [address] Abdomen Single View MR#: [id number] Acct: [id number] Name: DARYL PELLETIER Rep #: [id number] : 1980 M 45 From: Yvonne Pitt MD PCP: [facility] Status: ADM DANTE Study:Abdomen Single View Date of Exam: 02/26/25 Exam# [id number] Ordering Dr: Josue Myers MD EXAM: XR Abdomen, 1 View CLINICAL INDICATION: STONE TECHNIQUE: Frontal supine view of the abdomen/pelvis. COMPARISON: No relevant prior studies available. FINDINGS: GASTROINTESTINAL TRACT: Unremarkable. No dilation. ORGANS: Stool burden limits the evaluation for subtle renal calculi. No obvious nephrolithiasis. BONES/JOINTS: Unremarkable. No acute fracture. RAD/Abdomen Single View IMPRESSION: Stool burden limits the evaluation for subtle renal calculi. No obvious nephrolithiasis. Reading Location: [employer] [facility] CC: Dr. Korey Myers MD; [facility] ~ Continuing Education Director: Signed [facility]06-10-2025 History and physical note [facility] Medical Records Department [address] [facility] [place] [address] History & Physical Exam 02/26/25 0738 MR#: [id number] Acct: [id number] Name: DARYL PELLETIER Rep #:[id number] : 1980 45 From: Korey Myers MD PCP: [facility] Hospital Status:ADM DANTE Location: [facility] [place] [facility] HPI - General General Date of Admission: 02/25/25 Date of Service: 02/25/25 Chief Complaint: intractable left flank pain HPI Narrative DARYL PELLETIER, is a 45 M who presents with a 6 mm stone in the mid left ureter,had intractable pain in the emergency room the ear doctor has been to admit the patient because of the couldn't get home for pain control so patient was admitted plan to taken the surgery today for cystoscopy left stentplacement to alleviate the obstruction and that will get him some set up for shockwave lithotripsy the machine is available. [facility] Medical History Bipolar disorder Anxiety Depression Kidney stones Smoker Migraines PTSD (post-traumatic stress disorder) Home Medications ?Medication ?Instructions ?Recorded ?Last Taken ?Type NK 02/25/25 Unknown History Allergy/AdvReac Type Severity Reaction Status Date / Time Penicillins Allergy PT UNSURE Verified 02/25/25 14:38 OF REACTION Social History Smoking Status: Current every day smoker tobacco type: cigarettes ROS Constitutional Constitutional: Denies chills, fever(s) or malaise Eyes Eyes: Denies blurry vision or change in vision ENT HEENT: Reports none Cardiovascular Cardiovascular: Denies chest pain or palpitations Respiratory/Chest Respiratory/Chest: Denies cough or shortness of breath with exertion Gastrointestinal Gastrointestinal: Denies abdominal pain, constipation or diarrhea Musculoskeletal Musculoskeletal: Denies back pain, joint stiffness or joint swelling Integumentary Integumentary: Denies dry skin, jaundice, lesions or rash Neurologic Neurologic: Denies confusion, syncope or weakness Psychiatric Psychiatric: Reports none; Denies anxiety or depression Endocrine Endocrinology: Denies excessive sweating, fatigue or flushing Hematologic/Lymphatic Hematologic/Lymphatic: Denies anemia, easy bleeding or easy bruising Vital Signs Vital Signs Vital Signs: 02/25/25 14:37 02/25/25 16:37 02/25/25 18:00 Temperature 98.2 F Temperature Source Oral Pulse Rate 97 78 72 Pulse Strength Respiratory Rate 16 20 H 16 Respiratory Effort Respiratory Depth Respiratory Pattern Blood Pressure 136/86 H 158/98 H Blood Pressure Mean 102 118 Blood Pressure Source Blood Pressure Position Blood Pressure Location Pulse Ox 100 Oxygen Delivery Method Room Air 02/25/25 19:48 02/25/25 20:06 02/25/25 20:16 Temperature 98.0 F 97.6 F L Temperature Source Oral Pulse Rate 85 88 Pulse Strength Respiratory Rate 18 16 Respiratory Effort Normal Respiratory Depth Normal Respiratory Pattern Normal Blood Pressure 167/92 H 118/51 L Blood Pressure Mean 117 73 Blood Pressure Source Blood Pressure Position Blood Pressure Location Pulse Ox 97 96 Oxygen Delivery Method Room Air Room Air 02/25/25 20:16 02/25/25 20:16 02/25/25 21:40 Temperature 97.6 F L 97.6 F L Temperature Source Oral Oral Pulse Rate 88 88 Pulse Strength Normal (2+) Respiratory Rate 16 16 Respiratory Effort Respiratory Depth Respiratory Pattern Blood Pressure 118/51 L 118/51 L Blood Pressure Mean 73 73 Blood Pressure Source Monitor Blood Pressure Position Semi-Fowlers Blood Pressure Location Right Arm Pulse Ox 96 96 Oxygen Delivery Method Room Air Room Air 02/25/25 23:59 02/26/25 02:28 02/26/25 03:51 Temperature 98 F 97.9 F Temperature Source Oral Oral Pulse Rate 77 89 Pulse Strength Respiratory Rate 16 16 Respiratory Effort Normal Respiratory Depth Normal Respiratory Pattern Normal Blood Pressure 148/80 H 148/88 H Blood Pressure Mean 102 108 Blood Pressure Source Monitor Monitor Blood Pressure Position Semi-Fowlers Semi-Fowlers Blood Pressure Location Right Arm Right Arm Pulse Ox 94 98 Oxygen Delivery Method Room Air Room Air Room Air Weight Weight: 94.347 kg Body Mass Index (BMI) 28.2 Physical Exam Const alert and oriented x3 General Appearance: cooperative HEENT normocephalic and head/scalp atraumatic Eyes PERRL and EOMs intact bilaterally Neck supple, no JVD and no carotid bruits Resp normal respiratory effort, normal air movement and clear to auscultation bilaterally Cardio regular rate and no murmurs GI normal to inspection, nondistended, normoactive bowel sounds and soft to palpation Extremity normal capillary refill General Extremity: no tenderness to palpation of joints or extremities; Negativefor edema Skin no rashes or lesions noted and no wounds General Skin Exam: no breakdown Neuro CN's II-XII intact bilaterally Psych affect normal Appearance: appropriate Results Lab / Micro Data 02/25/25 15:29 02/25/25 15:29 Labs: Laboratory Results - last 24 hr 02/25/25 15:29: WBC 13.9 H, RBC 5.21, Hgb 14.6, Hct 41.4, MCV 79.5 L, MCH 28.0, MCHC 35.3, RDW Std Deviation 34.8 L, RDW Coeff of Tom 12.1, Plt Count 242, MPV 9.1, Immature Gran % (Auto) 0.400, Neut % (Auto) 74.7 H, Lymph % (Auto) 15.3 L, Massac % (Auto) 8.3, Eos % (Auto) 1.0, Baso % (Auto) 0.3, Absolute Neuts (auto) 10.4 H, Absolute Lymphs (auto) 2.13, Nucleated RBC % 0, Sodium 138, Potassium 3.7,Chloride 104, Carbon Dioxide 21.7, Anion Gap 12, BUN 13, Creatinine 1.46 H,Estim Creat Clear Calc 70.87, Est GFR (MDRD) Non-Af 60, BUN/Creatinine Ratio 9.2L, Glucose 101 H, Lactic Acid 2.0, Calcium 8.9, Total Bilirubin 0.49, AST 29, ALT 17, Alkaline Phosphatase 68, Total Protein 6.2, Albumin 3.9, Globulin 2.3, Albumin/Globulin Ratio 1.7 02/25/25 17:25: Urine Color Yellow, Urine Clarity Sl. Cloudy, Urine pH 7.0, Ur Specific Clayton 1.010, Urine Protein 30 H, Urine Glucose (UA) Normal, Urine Ketones Negative, Urine Occult Blood 250 H,Urine Nitrite Negative, Urine Bilirubin Negative, Urine Urobilinogen Normal, Ur Leukocyte Esterase 25 H, UrineRBC 50-100 SEEN, Urine WBC 0-5 SEEN, Ur Squamous Epith Cells 0-5 SEEN, Urine Bacteria 0 SEEN, Urine Mucus 0 SEEN 02/25/25 20:29: Lactic Acid < 1.0 Imaging Radiology Impression Testicular Ultrasound 02/25/25 15:10 IMPRESSION: NORMAL SCROTAL ULTRASOUND. Reading Location: [facility] Abdomen/Pelvis CT 02/25/25 15:40 IMPRESSION: Obstructing stone within the left mid-distal ureter at the ureteropelvic junction with mild left hydroureteronephrosis and delayed nephrogram. Reading Location: [facility] Assessment & Plan Assessment/Plan (1) Left ureteral calculus: PLAN: admit for pain control plan for cystoscopy left stent placement today 02/26/25 0739 Cosigner Signature (if applicable): CC: Dr. Korey Myers MD; [facility]~ Signed [facility]06-10-2025 [facility] Medical Records Department [address] [place] [address] History Physical Exam 02/26/25 0738 MR#: [id number] Acct: [id number] Name: DARYL PELLETIER Rep #: [id number] : 1980 45 From: Korey Myers MD PCP: [facility] Status:ADM DANTE Location: [facility] [place] [facility] HPI - General General Date of Admission: 02/25/25 Date of Service: 02/25/25 Chief Complaint: intractable left flank pain HPI Narrative DARYL PELLETIER, is a 45 M who presents with a 6 mm stone in the mid left ureter, had intractable pain in the emergency room the ear doctor has been to admit the patient because of the couldn't get home for pain control so patient was admitted plan to taken the surgery today for cystoscopy left stent placement to alleviate the obstruction and that will get him some set up for shockwave lithotripsy the machine is available. [facility] Medical History Bipolar disorder Anxiety Depression Kidney stones Smoker Migraines PTSD (post-traumatic stress disorder) Home Medications ???Medication ???Instructions ???Recorded ???Last Taken ???Type NK 02/25/25 Unknown History Allergy/AdvReac Type Severity Reaction Status Date / Time Penicillins Allergy PT UNSURE Verified 02/25/25 14:38 OF REACTION Social History Smoking Status: Current every day smoker tobacco type: cigarettes ROS Constitutional Constitutional: Denies chills, fever(s) or malaise Eyes Eyes: Denies blurry vision or change in vision ENT HEENT: Reports none Cardiovascular Cardiovascular: Denies chest pain or palpitations Respiratory/Chest Respiratory/Chest: Denies cough or shortness of breath with exertion Gastrointestinal Gastrointestinal: Denies abdominal pain, constipation or diarrhea Musculoskeletal Musculoskeletal: Denies back pain, joint stiffness or joint swelling Integumentary Integumentary: Denies dry skin, jaundice, lesions or rash Neurologic Neurologic: Denies confusion, syncope or weakness Psychiatric Psychiatric: Reports none; Denies anxiety or depression Endocrine Endocrinology: Denies excessive sweating, fatigue or flushing Hematologic/Lymphatic Hematologic/Lymphatic: Denies anemia, easy bleeding or easy bruising Vital Signs Vital Signs Vital Signs: 02/25/25 14:37 02/25/25 16:37 02/25/25 18:00 Temperature 98.2 F Temperature Source Oral Pulse Rate 97 78 72 Pulse Strength Respiratory Rate 16 20 H 16 Respiratory Effort Respiratory Depth Respiratory Pattern Blood Pressure 136/86 H 158/98 H Blood Pressure Mean 102 118 Blood Pressure Source Blood Pressure Position Blood Pressure Location Pulse Ox 100 Oxygen Delivery Method Room Air 02/25/25 19:48 02/25/25 20:06 02/25/25 20:16 Temperature 98.0 F 97.6 F L Temperature Source Oral Pulse Rate 85 88 Pulse Strength Respiratory Rate 18 16 Respiratory Effort Normal Respiratory Depth Normal Respiratory Pattern Normal Blood Pressure 167/92 H 118/51 L Blood Pressure Mean 117 73 Blood Pressure Source Blood Pressure Position Blood Pressure Location Pulse Ox 97 96 Oxygen Delivery Method Room Air Room Air 02/25/25 20:16 02/25/25 20:16 02/25/25 21:40 Temperature 97.6 F L 97.6 F L Temperature Source Oral Oral Pulse Rate 88 88 Pulse Strength Normal (2+) Respiratory Rate 16 16 Respiratory Effort Respiratory Depth Respiratory Pattern Blood Pressure 118/51 L 118/51 L Blood Pressure Mean 73 73 Blood Pressure Source Monitor Blood Pressure Position Semi-Fowlers Blood Pressure Location Right Arm Pulse Ox 96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
== END 2025-02-26 14:24 | disposition home or self-care (01) ==
LOC: ED 15:42 → MS3 02-26 06:20
PROVIDERS: Admitting Provider Urology; Emergency Provider Surgery; Referring Provider Urology; Visit Provider Urology
PROC: (CPT 52332; principal; 2025-02-26 11:50)
DX: N13.2 Hydronephrosis with renal and ureteral calculous obstruction (principal); R79.89 Other specified abnormal findings of blood chemistry; F17.210 Nicotine dependence, cigarettes, uncomplicated; N50.812 Left testicular pain
CPT/HCPCS: 52332; 00910; 74018; 74177; 76000; 76870; 80053; 81001; 83605; 85025; 93976; 96361; 96374; 96375; 96376; 99221; 99285; Q9967; A4216; C1769; C2617; G0378; J2405

== ENCOUNTER 2025-05-11 16:30 | Inpatient (IN) | payer OTHER, SELFPAY ==
[2025-05-11 16:31] VITALS: BP 131/82; PULSE 121; RESP 18; TEMP 37.7; O2SAT 100; BMI 26.2
--- NOTE | 2025-05-11 16:59 | CT_ITS ---
PROCEDURE: ABDOMEN/PELVIS WITHOUT CONT 05/11/2025 REASON FOR EXAM: KIDNEY STONE TECHNIQUE: ABDOMEN/PELVIS WITHOUT CONT Noncontrast technique limits evaluation of the abdominal and pelvic viscera. Coronal and Sagittal reconstruction series were provided. One or more dose reduction techniques were used (e.g., Automated exposure control, adjustment of the mA and/or kV according to patient size, use of iterative reconstruction technique). RADIATION DOSE SUMMARY: CTDlvol: 6.9 mGy DLP: 366 mGycm COMPARISON: 02/25/2025 FINDINGS: The lung bases are clear. There has been placement of a left-sided nephroureteral stent. This extends from the left kidney to the bladder. There is no free-fluid. There is no free air. There is no bowel obstruction. Improvement in hydronephrosis compared to the prior study. There may be a residual calcification adjacent to the stent in the mid left ureter. See image 100. Upper abdominal organs unremarkable CT/Abdomen/Pelvis without Cont IMPRESSION: Improvement in hydronephrosis status post stent placement. Ureteral stone is s till suspected to remain present Reading Location[facility]
--- NOTE | 2025-05-11 17:00 | EDS_ITS ---
HPI History of Present Illness Chief Complaint: Complaint Narrative Narrative: 45-year-old male states he had a stent placed by Dr. Myers in his left ureter a few months ago. He was post to follow-up with a urologist at the [place] on May 02, approximately 9 days ago but he missed the appointment. 4 days ago he began having increasing left flank pain. He states ever since his stent was placed he has been urinating blood. He presents with left flank pain, denies fevers or chills, no exacerbating or alleviating factors. He is taking Excedrin without relief. [facility] Medical History (Updated 05/11/25 @ 20:[address] Emely Foster MD) Loss of hearing Arthritis Narcolepsy Restless legs Injury of head and neck Gastric reflux History of Borjas's esophagus History of edema History of stress test Hypertension History of electroconvulsive therapy Hx of fracture of ankle History of fracture of tibia Bipolar disorder Anxiety Depression Smoker Migraines PTSD (post-traumatic stress disorder) Home Medications ?Medication ?Instructions ?Recorded ?Last Taken ?Type ciprofloxacin HCl 500 mg tablet 500 mg PO BID #6 tabs 02/26/25 Unknown Rx (Cipro) oxycodone 5 mg tablet 5 mg PO Q6H PRN pain 3 days #20 02/26/25 Unknown Rx tabs Allergy/AdvReac Type Severity Reaction Status Date / Time Penicillins Allergy PT UNSURE Verified 05/11/25 16:33 OF REACTION Surgical History History of esophagogastroduodenoscopy (EGD) History of cystoscopy Hx of sinus surgery Social History Smoking Status: Current every day smoker tobacco type: cigarettes ROS ROS ED ROS Narrative Review of systems positive for left flank pain and hematuria for the last few months. 4 days of left flank pain increasing in severity. No fevers or chills, no nausea or vomiting. No exacerbating or alleviating factors. EXAM Physical Exam Narrative Exam Narrative: Afebrile. Vital signs noted. Nontoxic-appearing. Cardiovascular semination reveals tachycardia. Lungs clear to auscultation bilaterally. Abdomen soft and nontender without guarding or rebound. Questionable left CVA tenderness to percussion. Neurological examination nonfocal lateralizing. Const Vital Signs: 05/11/25 16:31 05/11/25 18:30 05/11/25 20:00 Temperature 99.9 F H Temperature Source Oral Pulse Rate 121 H 101 H 105 H Respiratory Rate 18 18 16 Blood Pressure 131/82 H 114/62 110/60 Blood Pressure Mean 98 79 76 Pulse Ox 100 99 98 Oxygen Delivery Method Room Air Room Air Room Air MDM MDM MDM Narrative Medical decision making narrative: Differential diagnosis includes but not limited to worsening ureterolithiasis versus pyelonephritis versus sepsis from retained stone. Comprehensive workup was pursued. Patient bolused normal saline and administered ketorolac and morphine as well as ondansetron for analgesia. I do feel CT imaging is indicated as he has had a stent in place for the last 2 months to almost 3 months. I reviewed his prior ED visit and his lactic acid was normal at that time. He had been admitted by Dr. Myers for stent placement. I reviewed his prior ED visit and he did have a 0.5 cm stone in the left mid ureter. He was admitted to Dr. Myers and stent was placed on 02/26/2025. The operative note did state that he was supposed to return for lithotripsy. I reviewed his laboratory work and he had a white count of 15.7 today, hemoglobin 13.6 with hematocrit 40.0, platelet count elevated at 518 which may be more of an acute phase reactant. I reviewed his BMP and sodium low at 130 with chloride 91, BUN of 10 and creatinine 1.20, glucose elevated at 161 with normal anion gap of 15. Lactic acid is elevated at 2.3. This was obtained secondary to the elevated white count and tachycardia. Urinalysis obtained and there are greater than 100 RBCs with 25-50 WBCs. 3+ bacteria but 10-25 squamous epithelial cells. I have obtained and reviewed the CT radiology report which shows a stent in place with possible remaining calcification in the mid ureter. However, his hydronephrosis has improved. I reviewed his medication list and pr eviously he had received cefazolin although he has an allergy to penicillin with unknown reaction. He was administered cefazolin 2 g again. He needed something for nausea, and additional medication for pain. I will discuss patient with Dr. Myers to see if he can stay here and if he needs lithotripsy as my plan is for admission. I discussed patient with Dr. Myers who requested that the patient be admitted by the hospitalist and he can be seen by him in consultation tomorrow. I will discuss patient with Dr. Emely Foster for admission. He is in stable condition. History & Record Review Discussion w/independent historian: Patient Additional record(s) reviewed:: Prior ED visit and Prior labs Lab Data Attestation: I reviewed the patient's lab results. Labs: Laboratory Results - last 24 hr 05/11/25 05/11/25 05/11/25 17:17 17:25 18:22 WBC 15.7 H RBC 4.87 Hgb 13.6 Hct 40.0 MCV 82.1 MCH 27.9 MCHC 34.0 RDW Std Deviation 38.0 RDW Coeff of Tom 12.6 Plt Count 518 H MPV 8.5 Immature Gran % (Auto) 0.500 Neut % (Auto) 79.9 H Lymph % (Auto) 6.2 L [place] % (Auto) 13.2 H Eos % (Auto) 0.1 Baso % (Auto) 0.1 Absolute Neuts (auto) 12.5 H Absolute Lymphs (auto) 0.98 Nucleated RBC % 0 Differential Comment SCANNED Platelet Estimate MOD INC Sodium 130 L Potassium 3.9 Chloride 91 L Carbon Dioxide 24.7 Anion Gap 15 BUN 10 Creatinine 1.20 Estim Creat Clear Calc 86.22 Est GFR (MDRD) Non-Af 76 BUN/Creatinine Ratio 8.7 L Glucose 161 H Lactic Acid 2.3 H* Calcium 9.1 Urine Color [place] Urine Clarity Turbid Urine pH 6.0 Ur Specific [place] 1.020 Urine Protein 100 H Urine Glucose (UA) 50 H Urine Ketones 5 H Urine Occult Blood 250 H Urine Nitrite Positive H Urine Bilirubin 1 H Urine Urobilinogen 8 H Ur Leukocyte Esterase 100 H Urine RBC > 100 SEEN Urine WBC 25-50 SEEN Ur Squamous Epith Cells 10-25 SEEN Urine Bacteria 3+ Urine Mucus 0 SEEN Radiography Diagnostic Testing: Clinical Impression(s) from Imaging Studies Abdomen/Pelvis CT 05/11/25 16:59 IMPRESSION: Improvement in hydronephrosis status post stent placement. Ureteral stone is still suspected to remain present Reading Location: [facility] Management Discussion w/another healthcare provider: Hospitalist (Dr. Emely Foster) and Corporate Coordinator (Dr. Myers, urology) Discharge Plan Dx/Rx/DC Orders Clinical Impression: Left ureteral calculus, Urinary tract infection, Lactic acidosis, Ureteral stent present Disposition Disposition: Acute Care Hospital [facility]
[2025-05-11] MEDS: 0.9% Normal Saline (1000mL) 1,000 ML 999 ML IV ×2 (17:14→22:07)
--- OUTSIDE RECORDS SUMMARY | 2025-05-11 17:26 | XMS RPT_ITS | CCD ---
Author Organization [facility] Care Team Providers Care [employer] Advisor Name Role Phone DOT CRUMP Unavailable Unavailable PHYSICIAN, NONE Unavailable Unavailable RADHA CHUA (TAPER OPERATOR) Unavailable [place] Primary Care Provider [facility] Phill ROMAN, Dr. Mancini Emergency Provider Louis KATE, Dr. Korey Lua Admit Provider [phone] Louis KATE, Dr. Korey Lua Attending Provider Louis KATE, Dr. Korey Lua Referring Provider [phone] [facility] Poll[facility] DO, Dr. Mancini Emergency Provider Louis KATE, Dr. Korey Lua Admit Provider Louis KATE, Dr. Korey Lua Attending Provider Louis KATE, Dr. Korey Lua Referring Provider [phone] [facility] Unavailable Korey Myers Attending Unavailable Korey Myers Admitting [facility] Care Unavailable Korey Myers Referring Unavailable Korey Myers Attending Unavailable Allergies Allergy Classification Reported Allergen(s) Allergy Type Date of Onset Reaction(s) Facility (5 sources) Penicillins; Translations: [PENICILLINS] Propensity to adverse reactions to drug (disorder) 8 AOF, PT UNSURE OF REACTION [facility] Repository Medications Current Medications Medication Drug Class(es) Dates Sig (Normalized) Sig (Original) ciprofloxacin 500 mg oral tablet (1 source) Quinolone Antimicrobial Start: 02-26-2025 take 1 tablet by mouth twice daily Ciprofloxacin Hcl (Cipro) 500 mg tablet Active 500 mg PO TWICE A DAY February 26, 2025 12:00am Kinsman (Nk) (1 source) Start: 02-25-2025 Kinsman (Nk) Active February 25, 2025 12:00am oxyCODONE [...] uncomplicated] 09-11-2022 Chronic Calculus of urinary tract (2 sources) Ureteric stone; Translations: [Calculus of ureter] 02-26-2025 Episodic Impulse control disorders, NEC (3 sources) Homicidal thoughts; Translations: [Homicidal ideations] 09-11-2022 Episodic Mood disorders (3 sources) Depressive disorder; Translations: [Depression with suicidal ideation] 09-11-2022 Chronic Open wounds of extremities (3 sources) Laceration of thigh; Translations: [Laceration without foreign body, left thigh, initial encounter] 04-06-2023 Episodic Other diseases of kidney and ureters (1 source) Hydronephrosis with renal and ureteral calculous obstruction; Translations: [Hydronephrosis with renal and ureteral calculous obstruction] Onset: 03-05-2025 Episodic Other lower respiratory disease (1 source) Pleurodynia; Translations: [Pleurodynia] Onset: 08-30-2018 Episodic Substance-related disorders (3 sources) Methamphetamine abuse; Translations: [Other stimulant abuse, uncomplicated] 09-11-2022 Chronic Results Test Name Value Interpretation Reference Range Facility MR/PAT.Neal 03-01-2025 MR/PAT.ANE [facility] Medical Records Department [address] [place] [address] PAT - Anesthesia 03/01/25 1153 MR#: [id number] Acct: [id number] Name: DARYL PELLETIER Rep #: [id number] : 1980 45 From: Jomar Kingston MD PCP: DE Hospital Status:PRE [facility] Y Race: C Location: [facility] Pre-Assessment Diagnosis/Proposed Procedure Planned Operative Procedure(s): ESWL CYSTO STENT REMOVAL LEFT Anesthesia History Anesthesia History - manager business systems: Anesthesia History - manager business systems Hx Hospitalization Yes: 02/202502/28/25 13:00 Any Problems With Anesthesia No 02/28/25 13:00 Cholinesterase deficiency No 02/28/25 13:00 You/Your Family Experience No 02/28/25 13:00 fever (hyperthermia) with Relationship Recent Exposure to Contagious No 02/25/25 20:16 Disease Does patient have nerve No 02/28/25 13:00 stimulator Patient instructed to have device shut off --Does patient have Pacemaker or ICD? When Was Last Pacemaker Check QUESTION #4 FULL TEXT: You/Your Family Experience fever (hyperthermia) with Anesthesia Last Oral Intake Last Oral intake: Last Oral Intake NPO since Meds taken in AM with sips of water? 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 - manager business systems: PONV - manager business systems Female No 02/28/25 13:00 HX of Motion Sickness No 02/28/25 13:00 HX of N/V After Surgery No 02/28/25 13:00 Non-Smoker No 02/28/25 13:00 Duration of Surgery greater Yes 02/28/25 13:00 than 60 minutes Number of Risk Factors 1 02/28/25 13:00 PONV Score Low Risk 02/28/25 13:00 Height Weight Height Weight: Anesthesia: Height Weight Height 6 ft 02/25/25 20:06 Respiratory Assessment Respiratory Assessment - manager business systems: Respiratory Tract Infection Hx - manager business systems Hx Respiratory Tract Infection No 02/28/25 13:00 STOP Sleep Apnea STOP Sleep Apnea - manager business systems: STOP Sleep Apnea - manager business systems Hx Hypertension Yes: NO MEDS FOR 3 YRS 02/28/25 13:00 Hx Sleep Apnea No 02/28/25 13:00 CPAP BIPAP Do you snore loudly (louder No 02/28/25 13:00 than talking or can be heard Do you often feel tired/ Yes 02/28/25 13:00 fatigued/ sleepy during daytime? Has anyone observed you stop No 02/28/25 13:00 breathing during sleep? STOP Results Positive 02/28/25 13:00 QUESTION #5 FULL TEXT : Do you snore loudly (louder than talking or can be heard through closed doors)? 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 Specify any problems Hx of Preganancy in last 3 N/A 02/28/25 13:00 Months Nurse Filling Out Transfusion DSCHRIBER 02/28/25 13:00 Questions: Date: 02/28/25 02/28/25 13:00 Time: 13:01 02/28/25 13:00 Patient unable to answer at this time (ie. confused, unrespo /Reproduction History /Reproductive History - manager business systems: /Reproductive Hx- manager business systems Hx Now No 02/28/25 13:00 Gestational Age (in weeks): EDC: Hx Hx Para Hx Section SAB No 02/28/25 13:00 PFSH Medical History (Updated 02/28/25 @ 13:09 by Angela Bravo) Loss of hearing Arthritis Indwelling urethral catheter present Narcolepsy Restless legs Injury of head and neck Loss of consciousness Syncope Gastric reflux History of Borjas's esophagus Leg cramps History of edema History of stress test Hypertension History of electroconvulsive therapy Hx of fracture of ankle History of fracture of tibia Bipolar disorder Anxiety Depression Smoker Migraines PTSD (post-traumatic stress disorder) Home Medications ???Medication ???Instructions ???Recorded ???Last Taken ???Type ciprofloxacin HCl 500 mg tablet 500 mg PO BID #6 tabs 02/26/25 Unk nown Rx (Cipro) oxycodone 5 mg tablet 5 mg PO Q6H PRN pain 3 days #20 Unknown Rx tabs Allergy/AdvReac Type Severity Reaction Status Date / Time Penicillins Allergy PT UNSURE Verified 02/28/25 12:59 OF REACTI (more content not included)... Normal [facility] Abdomen Single Viewon 2024 Abdomen Single View [facility] Imaging Services [address] [place] [address] Abdomen Single View MR#: [id number] Acct: [id number] Name: DARYL PELLETIER Rep #: [id number] : 1980 M 45 From: Abdi Pitt MD PCP: DE Hospital Status: ADM DANTE Study: Abdomen Single View Date of Exam: 02/26/25 Exam# [id number] Ordering Dr: Korey Myers MD EXAM: XR [...] renal calculi. No obvious nephrolithiasis. Reading Location: [facility] CC: Dr. Korey Myers MD; [facility] Senior Ui Developer: Signed Normal [facility] Discharge Instructionon 02-[address] [facility] Medical Records Department [address] [place] [address] Instructions for Home/Discharge Instructions 02/26/25 1136 MR#: [id number] Acct: [id number] Name: PRABHUDARYL W Rep #: [id number] : 1980 45 From: Korey Myers MD PCP: [facility] Status:ADM DANTE Discharge Instructions Diet Discharge [...] Up With: Korey Myers MD When: Call [phone] for an appointment Test Results: Test results from this visit will be discussed in further detail at your follow-up appointment, if applicable. Discharge Plan Admission Admit Date/Time: 02/26/25 07:23 Primary Reason for Your Visit: kidney stone Attending Provider: Korey Myers Primary Care Provider: [facility] Discharge Orders/Prescriptions Prescriptions: New ciprofloxacin HCl [Cipro] 500 mg tablet 500 mg PO BID Qty: 6 0RF oxycodone 5 mg tablet 5 mg PO Q6H PRN (Reason: pain) 3 Days Qty: 20 0RF Referrals / Follow Up: Korey Myers MD [Med Staff - Active Staff] - [facility] [Primary Care Provider] - Disposition Disposition (needs filled in before D/C Order can be placed): Home, Self Care 02/26/251135 Korey Myers MD CC: [facility] Signed Normal [facility] MR/POSTOP.ANEkenny 02-26-2025 MR/POSTOP.ANE [facility] Medical Records Department [address] [place] [address] Anesthesia Postop Eval I 02/26/25 1204 MR#: [id number] Acct: [id number] Name: DARYL PELLETIER Alfonso Rep #: [id number] : 1980 45 From: Peyton Alejandra CRNA PCP: [facility] Status:ADM DANTE Y Race: C Location: [address] Anesthesia: Postop Eval I Current Vital Signs [...] 1 completed: Yes 02/26/25 1205 Date Peyton Alejandra INSURANCE AND FINANCIAL SERVICES AGENT Cosigner Signature: Date CC: Signed Normal [facility] MR/[id number] 02-26-2025 [facility] Medical Records Department [address] [place] [address] Anesthesia Postop Eval II 02/26/25 1254 MR#: [id number] Acct: [id number] Name: LEONARDO PELLETIERGEOVANNI Hamilton Rep #: [id number] : 1980 45 From: Jomar Kingston MD PCP: [facility] Status:ADM DANTE Y Race: C Location: [address] Anesthesia Postop Eval I Sum Postop Eval Completion status Anesthesia document: Postop Eval 1 completed: Yes Anesthesia Postop Eval I Summary Anesthesia Postop Eval I Summary: Anesthesia Postop Eval I: Assessment Summary Airway patent Yes 02/26/25 12:05 INSURANCE AND FINANCIAL SERVICES AGENT.GDOTT Spontaneous unlabored Yes 02/26/25 12:05 INSURANCE AND FINANCIAL SERVICES AGENT.GDOTT respirations Mental status Awake,Calm 02/26/25 12:05 INSURANCE AND FINANCIAL SERVICES AGENT.GDOTT nausea No 02/26/25 12:05 INSURANCE AND FINANCIAL SERVICES AGENT.GDOTT Vomiting No 02/26/25 12:05 INSURANCE AND FINANCIAL SERVICES AGENT.GDOTT Anesthesia Postop Eval I: Fluid Summary Crystalloid volume administer 200 02/26/25 12:05 INSURANCE AND FINANCIAL SERVICES AGENT.GDOTT (ml) Colloids volume administered ( ml) Blood Product volume administered (ml) Total IV fluid infused 200 02/26/25 12:05 INSURANCE AND FINANCIAL SERVICES AGENT.GDOTT Anesthesia Postop Eval I: Summary Notes Anesthesia Complication No 02/26/25 12:05 INSURANCE AND FINANCIAL SERVICES AGENT.GDOTT Anesthesia Complication Comment: Post-operative progress note Anesthesia: Postop Eval II Evaluation Mental status: Awake Pain Level: 0 nausea: No Vomiting: No 02/26/25 1254 Date Jomar Segovia Signature: Date CC: Signed Normal [facility] Operative Reporton 5 Operative Report [facility] Medical Records Department [address] [place] [address] Operative Report 02/26/25 1138 MR#: [id number] Acct: [id number] Name: DARYL PELLETIER Rep #: [id number] : 1980 45 From: Korey Myers MD PCP: DE Hospital Status:ADM DANTE Location: [place] [address] Operative Report (Standard) Operative Information Date of Procedure: 02/26/25 Pre-Operative Diagnosis: Obstructing stone in the left mid ureter Post-Operative Diagnosis: The same Surgery/Procedure Performed: Cystoscopy left stent placement forest botany instructor: No Type of Anesthesia: General RN Documented [...] in usual fashion with about a 21 Chadian rigid cystourethroscope cannulated the left ureter with [...] (if applicable): CC: Dr. Korey Myers MD; [facility] Signed Normal [facility] Abdomen/Pelvis W IV Cont ONL Yon 02-25-2025 Abdomen/Pelvis W IV Cont ONLY [facility] Imaging Services [address] [place], [place] [address] Abdomen/Pelvis W IV Cont ONLY MR#: [id number] Acct: [id number] Name: DARYL PELLETIER Rep #: [id number] : 1980 M 45 From: Hilary Marinelli nd, MD PCP: [facility] Status: REG ER Study: Abdomen/Pelvis W IV Cont ONLY Date of Exam: Exam# [id number] Ordering Dr: Live Pollock DO PROCEDURE: ABDOMEN/PELVIS [...] left hydroureteronephrosis and delayed nephrogram. Reading Location: [facility] CC: Dr. Live Pollock, [facility] Senior Ui Developer: Signed Normal [facility] Absolute lymphocyte countOrd ered By: Live Pollock on 02-25-2025 Lymphocytes Auto (Unsp spec) [#/Vol] 2.13 10*3/uL 0.83-4.51 [facility] Absolute neutrophil countOrd ered By: Live Pollock on 02-25-2025 Neutrophils (Bld) [#/Vol] 10.4 10*3/uL High 2.0-7.7 [facility] Anion gap in Serum or Plasma Ordered By: Live Pollock on 02-25-2025 Anion gap [Moles/Vol] 12 mmol/L 5-15 [facility] Automated lymphocyte count a s percentage of total leukocytesOrdered By: Live Pollock on 02-25-2025 Lymphocytes/100 WBC Auto (Unsp spec) 15.3 % Low 19-41 [facility] BUN/creatinine ratioOrdered By: Live RecinosAkash on 02-25-2025 Urea nitrogen/Creatinine [Mass ratio] 9.2 mg/mg Low 10-20 [facility] Basophil percentageOrdered B y: Live Phill on 02-25-2025 Basophils/100 WBC (Bld) 0.3 % 0-1 [facility] Bilirubin Test strip Ql (U)O rdered By: Live Pollock on 02-25-2025 Bilirubin Ql (U) Negative Negative [facility] Bilirubin, totalOrdered By: Live NealGerson on 02-25-2025 Bilirubin [Mass/Vol] 0.49 mg/dL 0.00-1.30 [facility] CBC W/Diff, Automatedon Absolute Lymph 2.13 X10 3/uL Normal 0.83-4.51 [facility] Comment on above: Performed By: #### L 100.0100 ####[facility] [address] [place], [address] Absolute Neut 10.4 X10 3/uL High 2.0-7.7 [facility] Comment on above: Performed By: #### L 100.0100 ####[facility] [address] [place], [address] Basophils/100 WBC (Bld) 0.3 % Normal 0-1 [facility] Comment on above: Performed By: #### L 100.0100 ####[facility] [address] [place], [address] Eosinophils/100 WBC (Bld) 1.0 % Normal 0-5 [facility] Comment on above: Performed By: #### L 100.0100 ####[facility] [address] [place], [address] Erythrocyte distribution width (RBC) [Ratio] 12.1 % Normal 11.6-14.6 [facility] Comment on above: Performed By: #### L 100.0100 ####[facility] [address] [place], [address] Hematocrit (Bld) [Volume fraction] 41.4 % Normal 40-54 [facility] Comment on above: Performed By: #### L 100.0100 ####[facility] [address] [place], [address] Hemoglobin (Bld) [Mass/Vol] 14.6 g/dL Normal 13.0-16.5 [facility] Comment on above: Performed By: #### L 100.0100 ####[facility] [address] [place], [address] IG% 0.400 Normal 0.0-0.9 [facility] Comment on above: Result Comment: IG% - Immature Granulocytes (promyelocytes, myelocytes and metamyelocytes) > 1% indicates that a LEFT SHIFT is Present. Performed By: #### L 100.0100 ####[facility] [address] [place], [address] Lymphocytes/100 WBC (Bld) 15.3 % Low 19-41 [facility] Comment on above: Performed By: #### L 100.0100 ####[facility] [address] [place], [address] MCH (RBC) [Entitic mass] 28.0 pg Normal 27.0-32.0 [facility] Comment on above: Performed By: #### L 100.0100 ####[facility] [address] [place], [address] MCHC (RBC) [Mass/Vol] 35.3 g/dL Normal 32-36 [facility] Comment on above: Performed By: #### L 100.0100 ####[facility] [address] [place], [address] MCV (RBC) [Entitic vol] 79.5 fL Low 80-94 [facility] Comment on above: Performed By: #### L 100.0100 ####[facility] [address] [place], [address] Monocytes/100 WBC (Bld) 8.3 % Normal 0-10 [facility] Comment on above: Performed By: #### L 100.0100 ####[facility] [address] [place], [address] Neutrophils/100 WBC (Bld) 74.7 % High 47-70 [facility] Comment on above: Performed By: #### L 100.0100 ####[facility] [address] [place], [address] Nucleated RBC (Bld) [#/Vol] 0 10*3/uL Normal 0-5 [facility] Comment on above: Performed By: #### L 100.0100 ####[facility] [address] [place], [address] Platelet mean volume (Bld) [Entitic vol] 9.1 fL Normal 6.2-12.0 [facility] Comment on above: Performed By: #### L 100.0100 ####[facility] [address] [place], [address] Platelets (Bld) [#/Vol] 242 10*3/uL Normal 150-450 [facility] Comment on above: Performed By: #### L 100.0100 ####[facility] [address] [place], [address] RBC (Bld) [#/Vol] 5.21 10*6/uL Normal 4.6-6.2 [facility] Comment on above: Performed By: #### L 100.0100 ####[facility] [address] [place], [address] RDW SD 34.8 fl Low 35.1-43.9 [facility] Comment on above: Performed By: #### L 100.0100 ####[facility] [address] [place], [address] WBC (Bld) [#/Vol] 13.9 10*3/uL High 4.4-11.0 [facility] Comment on above: Performed By: #### L 100.0100 ####[facility] [address] [place], [address] Carbon dioxide, total [Moles /volume] in Central venous bloodOrdered By: Live Pollock on 02-25-2025 CO2 [Moles/Vol] 21.7 mmol/L 21.0-32.0 [facility] Chloride assayOrdered By: Tiago Pollock on 02-25-2025 Chloride [Moles/Vol] 104 mmol/L 98-108 [facility] Comprehensive Metabolic Prof ilon 02-25-2025 Albumin [Mass/Vol] 3.9 g/dL Normal 3.5-5.0 [facility] Comment on above: Performed By: #### L 500.4050, L503.6005 ####[facility] [address] [place], [address] Albumin/Globulin [Mass ratio] 1.7 {ratio} Normal 0.9-2.4 [facility] Comment on above: Performed By: #### L 500.4050, L503.6005 ####[facility] [address] [place], [address] ALK PHOS 68 U/L Normal 40-129 [facility] Comment on above: Performed By: #### L 500.4050, L503.6005 ####[facility] [address] [place], [address] ALT [Catalytic activity/Vol] 17 U/L Normal <=46 [facility] Comment on above: Performed By: #### L 500.4050, L503.6005 ####[facility] [address] [place], [address] AST [Catalytic activity/Vol] 29 U/L Normal <=37 [facility] Comment on above: Performed By: #### L 500.4050, L503.6005 ####[facility] [address] [place], [address] Bilirubin [Mass/Vol] 0.49 mg/dL Normal 0.00-1.30 [facility] Comment on above: Performed By: #### L 500.4050, L503.6005 ####[facility] [address] [place], [address] BUN/CRE 9.2 RATIO Low 10-20 [facility] Comment on above: Performed By: #### L 500.4050, L503.6005 ####[facility] [address] [place], [address] Calcium [Mass/Vol] 8.9 mg/dL Normal 7.6-11.0 [facility] Comment on above: Performed By: #### L 500.4050, L503.6005 ####[facility] [address] [place], [address] Chloride [Moles/Vol] 104 mmol/L Normal 98-108 [facility] Comment on above: Performed By: #### L 500.4050, L503.6005 ####[facility] [address] [place], [address] CO2 [Moles/Vol] 21.7 mmol/L Normal 21.0-32.0 [facility] Comment on above: Performed By: #### L 500.4050, L503.6005 ####[facility] [address] [place], [address] Creatinine [Mass/Vol] 1.46 mg/dL High 0.70-1.20 [facility] Comment on above: Performed By: #### L 500.4050, L503.6005 ####[facility] [address] [place], [address] ECRCL 70.87 ml/min Normal 50-250 [facility] Comment on above: Performed By: #### L 500.4050, L503.6005 ####[facility] [address] [place], [address] GAP 12 Normal 5-15 [facility] Comment on above: Performed By: #### L 500.4050, L503.6005 ####[facility] [address] [place], [address] GFR/1.73 sq M.predicted among non-blacks MDRD (S/P/Bld) [Vol rate/Area] 60 mL/min/{1.73_m2} Normal >60 [facility] Comment on above: Result Comment: mL/m in/1.73m2 CKD-EPI Creatinine Equation (2020) Performed By: #### L 500.4050, L503.6005 ####[facility] [address] [place], [address] Globulin (S) [Mass/Vol] 2.3 g/dL Normal 2.2-4.2 [facility] Comment on above: Performed By: #### L 500.4050, L503.6005 ####[facility] [address] [place], [address] Glucose [Mass/Vol] 101 mg/dL High 70-99 [facility] Comment on above: Performed By: #### L 500.4050, L503.6005 ####[facility] [address] [place], [address] Potassium [Moles/Vol] 3.7 mmol/L Normal 3.3-5.1 [facility] Comment on above: Performed By: #### L 500.4050, L503.6005 ####[facility] [address] [place], [address] Sodium [Moles/Vol] 138 mmol/L Normal 133-145 [facility] Comment on above: Performed By: #### L 500.4050, L503.6005 ####[facility] [address] [place], [address] T PROT 6.2 g/dL Normal 5.9-8.4 [facility] Comment on above: Performed By: #### L 500.4050, L503.6005 ####[facility] [address] [place], [address] Urea nitrogen [Mass/Vol] 13 mg/dL Normal 4-19 [facility] Comment on above: Performed By: #### L 500.4050, L503.6005 ####[facility] [address] [place], [address] Emergency Department Summary on 02-25-[address] [facility] Medical Records Department [address] [place] [address] Emergency Department Summary 02/25/25 MR#: [id number] Acct: [id number] Name: DARYL PELLETIER Rep #: [id number] : 1980 45 From: Live Pollock DO PCP: [facility] Status:REG ER Location: ED ADDENDUM by [...] creatinine 02/25/251930 Cosigner Signature (if applicable): cc: [facility] * Signed HPI History of Present [...] intact Psych: Cooperative, appropriate mood and affect [facility] Medical History PTSD (post-traumatic stress disorder) Home [...] (more content not included)... Normal [facility] Eosinophil percentageOrdered By: Liverasheeda Pollock on 02-25-2025 Eosinophils/100 WBC (Bld) 1.0 % 0-5 [facility] Erythrocyte distribution wid th ratioOrdered By: [place] JorjeYinka on 02-25-2025 Erythrocyte distribution width (RBC) [Ratio] 12.1 % 11.6-14.6 [facility] Erythrocyte distribution wid th standard deviationOrdered By: [facility] Yinka on 02-25-2025 Erythrocyte distribution width (RBC) [Ratio] 34.8 fl Low 35.1-43.9 [facility] Glomerular filtration rate ( GFR) estimation/1.73 sq m using serum, plasma, or whole bOrdered By: Live Pollock on 02-25-2025 GFR/1.73 sq M.predicted among non-blacks MDRD (S/P/Bld) [Vol rate/Area] 60 mL/min/{1.73_m2} >60 [facility] Comment on above: mL/min/1.73m2 CKD-EP I Creatinine Equation (2020) Hematocrit Auto (Bld) [Volum e fraction]Ordered By: Live Pollock on 02-25-2025 Hematocrit (Bld) [Volume fraction] 41.4 % 40-54 [facility] Hemoglobin measurementOrdere d By: Live Pollock on 02-25-2025 Hemoglobin (Bld) [Mass/Vol] 14.6 g/dL 13.0-16.5 [facility] Immature granulocytes/100 WB C Auto (Bld)Ordered By: Live Pollock on 02-25-2025 Immature granulocytes/100 WBC (Bld) 0.400 % 0.0-0.9 [facility] Comment on above: IG% - Immature Granu locytes (promyelocytes, myelocytes and metamyelocytes) > 1% indicates that a LEFT SHIFT is Present. Ketones Test strip Ql (U)Ord ered By: Live Pollock on 02-25-2025 Ketones Ql (U) Negative Negative [facility] Laboratory - Chemistry and C hemistry - challengeOrdered By: Live Pollock on 02-25-2025 AST [Catalytic activity/Vol] 29 U/L <38 [facility] Lactic Acidon 02-25-2025 Lactate [Moles/Vol] mmol/L Normal 0.0-2.0 [facility] Comment on above: Performed By: #### L 503.6005 ####[facility] [address] [place], [address] Lactate [Moles/Vol] 2.0 mmol/L Normal 0.0-2.0 [facility] Comment on above: Order Comment: Y Result Comment: Crit ical Result(s) Called at: 1617 by:??MURPHY DAVENPORT Results read back by same. Performed By: #### L 500.4050, L503.6005 ####[facility] [address] [place], [address] Lactic acid measurementOrder ed By: Live Pollock on 02-25-2025 Lactate [Moles/Vol] mmol/L 0.0-2.0 [facility] Lactate [Moles/Vol] 2.0 mmol/L 0.0-2.0 [facility] Comment on above: Critical Result(s) C alled at: 1617 by: MURPHY DAVENPORT Results read back by same. MCV (mean corpuscular volume ) determinationOrdered By: Live Pollock on 02-25-2025 MCV (RBC) [Entitic vol] 79.5 fL Low 80-94 [facility] Mean corpuscular hemoglobin (MCH) determinationOrdered By: [facility] Health[facility]haYinka on 02-25-2025 MCH (RBC) [Entitic mass] 28.0 pg 27.0-32.0 [facility] Mean corpuscular hemoglobin concentration (MCHC) determinationOrdered By: [facility] Township[facility]abellaAkash on 02-25-2025 MCHC (RBC) [Mass/Vol] 35.3 g/dL 32-36 [facility] Mean platelet volume determi nationOrdered By: Live Gerson on 02-25-2025 Platelet mean volume (Bld) [Entitic vol] 9.1 fL 6.2-12.0 [facility] Microscopic analysis of urin e for red blood cells (RBC)Ordered By: Live Pollock on 02-25-2025 Microscopic analysis of urine for red blood cells (RBC) 50-100 SEEN /hpf 0-5 [facility] Monocyte percentageOrdered B y: Live Pollock on 02-25-2025 Monocytes/100 WBC (Bld) 8.3 % 0-10 [facility] Mucus LM Ql (Urine sed)Order ed By: Live Pollock on 02-25-2025 Mucus Ql (Urine sed) 0 SEEN /hpf [facility] Neutrophil percentageOrdered By: Live Pollock on 02-25-2025 Neutrophils/100 WBC (Bld) 74.7 % High 47-70 [facility] Nitrite Test strip Ql (U)Ord ered By: Live Pollock on 02-25-2025 Nitrite Ql (U) Negative Negative [facility] Nucleated red blood cell per centageOrdered By: Live Pollock on 02-25-2025 Nucleated RBC/100 WBC (Bld) [Ratio] 0 % 0-5 [facility] Platelet countOrdered By: Tiago Pollock on 02-25-2025 Platelets (Bld) [#/Vol] 242 10*3/uL 150-450 [facility] Potassium measurement (mass/ volume)Ordered By: Live Pollock on 02-25-2025 Potassium (Unsp spec) [Mass/Vol] 3.7 mmol/L 3.3-5.1 [facility] Protein Test strip Ql (U)Ord ered By: Live Pollock on 02-25-2025 Protein Ql (U) 30 mg/dl High Negative [facility] RBC Auto (Bld) [#/Vol]Ordere d By: Live Pollock on 02-25-2025 RBC (Bld) [#/Vol] 5.21 10*6/uL 4.6-6.2 [facility] Serum creatinine measurement (mass/volume)Ordered By: Live Pollock on 02-25-2025 Creatinine [Mass/Vol] 1.46 mg/dL High 0.70-1.20 [facility] Serum globulin measurementOr dered By: Live Pollock on 02-25-2025 Globulin (S) [Mass/Vol] 2.3 g/dL 2.2-4.2 [facility] Serum glucose measurement (m ass/volume)Ordered By: Live Pollock on 02-25-2025 Glucose [Mass/Vol] 101 mg/dL High 70-99 [facility] Serum or plasma alanine nascimento otransferase (ALT) measurementOrdered By: Live Pollock on 02-25-2025 ALT [Catalytic activity/Vol] 17 U/L <47 [facility] Serum or plasma albumin lillie urement (mass/volume)Ordered By: Live Honeycutt on 02-25-2025 Albumin [Mass/Vol] 3.9 g/dL 3.5-5.0 [facility] Serum or plasma albumin/glob ulin mass ratioOrdered By: [facility] Hospital[facility] on 02-25-2025 Albumin/Globulin [Mass ratio] 1.7 {ratio} 0.9-2.4 [facility] Serum or plasma alkaline winter sphatase measurementOrdered By: Live Pollock on 02-25-2025 ALP [Catalytic activity/Vol] 68 U/L 40-129 [facility] Serum or plasma calcium lillie urement (mass/volume)Ordered By: Live Honeycutt on 02-25-2025 Calcium [Mass/Vol] 8.9 mg/dL 7.6-11.0 [facility] Serum or plasma urea nitroge n measurement (mass/volume)Ordered By: Live Pollock on 02-25-2025 Urea nitrogen [Mass/Vol] 13 mg/dL 4-19 [facility] Sodium levelOrdered By: Latrell Pollock on 02-25-2025 Sodium [Moles/Vol] 138 mmol/L 133-145 [facility] Squamous epithelial cells de tection in urine sediment by light microscopyOrdered By: Live Pollock on 02-25-2025 Epithelial cells.squamous LM Ql (Urine sed) 0-5 SEEN /hpf 0-5 [facility] Testicular with Arterial Eloy won 02-25-2025 Testicular with Arterial Flow [facility] Imaging Services [address] [place], [place] [address] Testicular with Arterial Flow MR#: [id number] Acct: [id number] Name: DARYL PELLETIER Rep #: [id number] : 1980 M 45 From: Janina Oconnell PCP: [facility] Status: REG ER Study: Testicular with Arterial Flow Date of Exam: Exam# [id number] Ordering Dr: Live Pollock DO PROCEDURE: TESTICULAR [...] Flow IMPRESSION: NORMAL SCROTAL ULTRASOUND. Reading Location: [facility] CC: Dr. Live Pollock DO; [facility] Senior Ui Developer: Signed Normal [facility] Total proteinOrdered By: Rahat Pollock on 02-25-2025 Protein [Mass/Vol] 6.2 g/dL 5.9-8.4 [facility] Urinalysis, Completeon 02-25 EPI,SQUAMOUS 0-5 SEEN Normal 0-5 [facility] Comment on above: Order Comment: CLEAN CATCH Performed By: #### L 400.0001 ####[facility] [address] [place], [place], [id number] RBC 50-100 SEEN Normal 0-5 [facility] Comment on above: Order Comment: CLEAN CATCH Performed By: #### L 400.0001 ####[facility] [address] [place], [address] WBC 0-5 SEEN Normal 0-5 [facility] Comment on above: Order Comment: CLEAN CATCH Performed By: #### L 400.0001 ####[facility] [address] [place], [address] BACTERIA 0 SEEN Normal None Seen [facility] Comment on above: Order Comment: CLEAN CATCH Performed By: #### L 400.0001 ####[facility] [address] [place], [place], [address] Mucus Ql (Urine sed) 0 SEEN Normal [facility] Comment on above: Order Comment: CLEAN CATCH Performed By: #### L 400.0001 ####[facility] [address] [place], [place], [id number] Urine clarityOrdered By: Rahat Pollock on 02-25-2025 Clarity (U) Sl. Cloudy Clear [facility] Urine color determinationOrd ered By: Live Pollock on 02-25-2025 Color (U) Yellow Yellow [facility] Urine glucose detectionOrder ed By: Live Pollock on 02-25-2025 Glucose Ql (U) Normal mg/dl Normal [facility] Urine leukocyte esterase det ection by dipstickOrdered By: Live Pollock on 02-25-2025 Leukocyte esterase Test strip Ql (U) 25 /ul High Negative [facility] Urine pHOrdered By: Live Nieto on 02-25-2025 pH (U) 7.0 [pH] 5.0 - 8.0 [facility] Urine sediment bacteria coun t by microscopy (number/high power field)Ordered By: Live Pollock on 02-25-2025 Bacteria LM.HPF (Urine sed) [#/Area] 0 /[HPF] None Seen [facility] Urine specific gravity measu rementOrdered By: Live Pollock on 02-25-2025 Specific gravity (U) [Rel density] 1.010 1.002-1.03 0 [facility] Urine urobilinogen measureme ntOrdered By: Live Pollock on 02-25-2025 Urobilinogen Ql (U) Normal mg/dl Normal [facility] White blood cell (WBC) count Ordered By: Live MoellerCurry on 02-25-2025 WBC (Bld) [#/Vol] 13.9 10*3/uL High 4.4-11.0 [facility] White blood cell countOrdere d By: Live Phill on 02-25-2025 White blood cell count 0-5 SEEN /hpf 0-5 [facility] XR TIBIA/FIBULA 2 VIEWS LEFT on 09-21-2018 [...] Report By: Darrel Kincaid DOElectronically Signed By: Darrle Kincaid DO Dictated Date: 09/21/2018 9:13:31 AM Prelim Date: 09/21/2018 9:13:31 AM Sign Date: 09/21/2018 9:17:54 AM Normal [facility] ([place] CNOVon 08-30-2018 CN Office Visit (UCWSTR) ----DARYL PELLETIER ([id number]) 1980 [facility] Bkdepgjeso14/12/18 3:45 PM [facility] During your visit today, we recorded the [...] discharge coming from under the cast.Radha Dodd APRN.LOCOMOTIVE OBSERVER 08/30/2018 5:35 PM SignedSubjectiveHPIPatient presents with:Rib Injury: [...] for pain management, a Dr. [place] in [place].- Encourage deep breathing and analgesics PRN- XR [...] Reviewed: Never ReviewedReason for Visit: Rib Injury [18185] Cmt: right rib pain after lifting x 2 weeksPrimary Visit Diagnosis:Rib pain on right side [R07.81]Order(s):XR RIBS/CHEST 3V AP RIB/OBLS/CXR RT [[id number]] Order #: [id number] FUTUREPrescriptions as of 08/30/2018 Sig: PROZAC ORAL [...] wet, it can be dried with a haircutter. 4. Do not put pressure on any [...] improve.Follow-up and Disposition History RecordedLetter Kimberly Dodd APRN.[facility] Urgent [address] [facility] [address]Cqva: [phone]/12/2018Jocedrick Pelletier[address] [facility] [address] Whom it May Concern:This is to certify that Daryl Pelletier was seen at our office for medicalcare. Daryl may return to work on 08/31/2018.If you have any questions please feel free to call.Sincerely:Radha Dodd APRN.CNPEncounter Number: [id number] Status:Closed by RADHA DODD on 08/30/18 Normal [facility] PROGRESSon 08-30-2018 Protein mass conc HNO ID: [id number] thor: Radha Quarles (Field Service Coordinator) TayService: (none)Author Type: Nurse PractitionerType: Progress NotesFiled: [...] occur. Patient agreeable to treatment plan.Radha Dodd APRN.LOCOMOTIVE OBSERVER Normal [facility] Protein mass conc HNO ID: [id number] thor: Jennifer Jean-Baptiste RtService: (none)Author Type: (none)Type: Progress NotesFiled: 08/30/2018 4:32 PMNote Text: Radiology Service Progress NotePATIENT NAME: Daryl PelletierMRN: [id number] OF SERVICE: August 30, 2018TIME: 4:23 PMPATIENT IDENTITY VERIFICATION COMPLETED USING TWO (2) METHODS: Patientconfirmed name verbally and Date of .PATIENT GENDER DATA: MalePATIENT RELEVANT IMPLANT DATA REVIEWED: Not ApplicableRADIOLOGY DEPARTMENT: General X-ray: Exam(s) Completed: Rib X-Ray: RightPERIPHERAL IV DATA: Not applicableSIGNED BY: Jennifer Briscoe 2017 4:23 PM Normal [facility] XR RIB/CHST 3V AP RIB/OBL/CH ST [facility] [...] VAZQUEZ MD on Aug 30 2018 4:40PM [id number] Normal [facility] Vital Signs Date Time Vital Sign Value Performing Clinician Devan stanleygrace 02-26-2025 12:47-0400 Body temperature 97.5 [degF] [facility] 02-26-2025 12:47-0400 Diastolic blood pressure 65 mm[Hg] [facility] 02-26-2025 12:47-0400 Heart rate 82 /min [facility] 02-26-2025 12:47-0400 Respiratory rate 17 /min [facility] 02-26-2025 12:47-0400 SaO2% (BldA) [Mass fraction] 95 % [facility] 02-26-2025 12:47-0400 Systolic blood pressure 113 mm[Hg] [facility] 02-25-2025 20:06-0400 Body height 182.88 cm [facility] 02-25-2025 20:06-0400 Body mass index (BMI) [Ratio] 28.2 kg/m2 [facility] 02-25-2025 20:06-0400 Body weight 94.34 kg [facility] 02-25-2025 19:48-0400 Body temperature 98 [degF] [facility] 02-25-2025 19:48-0400 Diastolic blood pressure 92 mm[Hg] [facility] 02-25-2025 19:48-0400 Heart rate 85 /min [facility] 02-25-2025 19:48-0400 Respiratory rate 18 /min [facility] 02-25-2025 19:48-0400 SaO2% (BldA) [Mass fraction] 97 % [facility] 02-25-2025 19:48-0400 Systolic blood pressure 167 mm[Hg] [facility] 02-25-2025 14:37-0400 Body height 182.88 cm [facility] 02-25-2025 14:37-0400 Body mass index (BMI) [Ratio] 27.5 kg/m2 [facility] 02-25-2025 14:37-0400 Body weight 92.07 kg [facility] 04-06-2023 22:58-0400 Body height 182.[address] [facility] 04-06-2023 22:58-0400 Body mass index (BMI) [Ratio] 29.2 kg/m2 [facility] 04-06-2023 22:58-0400 Body temperature 97.1 [degF] [facility] 04-06-2023 22:58-0400 Body weight 97.[address] [facility] 04-06-2023 22:58-0400 Diastolic blood pressure 94 mm[Hg] [facility] 04-06-2023 22:58-0400 Heart rate 93 /min [facility] 04-06-2023 22:58-0400 Respiratory rate 20 /min [facility] 04-06-2023 22:58-0400 SaO2% (BldA) [Mass fraction] 98 % [facility] 04-06-2023 22:58-0400 Systolic blood pressure 134 mm[Hg] [facility] Encounters Encounter Date Encounter Type Care Provider Facility Start: 02-28-2025 ambulatory [facility] Facility:[facility] Start: 02-26-2025 End: 02-26-2025 ambulatory Korey Myers Facility:[facility] Start: 02-26-2025 End: 02-26-2025 Evaluation and management of inpatient Dr. Korey Myers MD -[facility] Work Phone: Start: 02-26-2025 End: 02-26-2025 observation encounter [facility] Work Phone: Start: 02-25-2025 Evaluation and management of inpatient Dr. Korey Myers MD -[facility] Work Phone: Start: 02-25-2025 observation encounter [facility] Work Phone: Start: 04-06-2023 End: 04-07-2023 Emergency department patient visit [facility]Emergency Department Work Phone: Start: 09-21-2018 End: 09-21-2018 Emergency department patient visit [facility] Facility:B Start: 08-30-2018 End: 09-25-2018 Patient encounter procedure RADHA Quarles (TAPER OPERATOR) [facility] Procedures Date Procedure Procedure Detail Performing Clinician Start: 02-26-2025 Insertion of stent i nto ureter [facility] Start: 02-26-2025 Fluoroscopic guidance [facility] Start: 02-26-2025 Plain X-ray abdomen [facility] Start: 02-25-2025 Urnls dip stick/tabl et reagent auto microscopy [facility] Start: 02-25-2025 Computed tomography of abdomen and pelvis with intravenous contrast [facility] Start: 02-25-2025 Estimated creatinine clearance [facility] Start: 02-25-2025 Ultrasound of scrotu m with Doppler and color flow imaging [facility] Plan of Treatment Date Care Activity Detail Author Start: 02-26-2025 Patient discharge [facility] Start: 02-26-2025 Admission procedure [facility] Start: 02-25-2025 Application of intermittent pneumatic compression device [facility] Start: 02-25-2025 Measuring intake and output [facility] Start: 02-25-2025 Following clinical pathway protocol [facility] Start: 02-25-2025 Hospital admission, emergency, from emergency room, medical nature [facility] Lactic acid measurement [facility] Patient Education ED Laceration Extremity [facility] Work Phone: Patient referral [facility] Work Phone: Payers Date Payer Category Payer Medicare [id number] 2025 Unknown [id number] 2018 Self-pay 1980 Unknown [id number] Unknown [id number] Unknown [id number] [id number] [id number] Unknown [id number] [id number] Social History Date Type Detail Facility Start: 04-06-2023 Tobacco smoking stat us WAIS Unknown if ever smoked [facility] Start: 1980 Sex Assigned At Male [facility] Start: 02-25-2025 End: 02-25-2025 Tobacco smoking status NHIS Smokes tobacco daily (finding) [facility] Goals Date Patient Goal Desired Activity /State Functional Status Date Assessment Result Facility 02-26-2025 Functional status Ambulates [facility] Work Phone: Mental Status Date Assessment Result Facility 02-26-2025 Cognitive function Voice/Name [facility] Work Phone: Clinical Notes 04-06-2023 to 02-26-2025 Note Date & Type Note Facility 02-26-2025 Consult note [facility] 02-26-2025 Discharge summary [facility] 02-26-2025 Consult note Note Date/Time February 26, 2025 12:05pm [facility] Medical Records Department [address] [place] [address] Anesthesia Postop Eval I 02/26/251203 MR#: [id number] Acct: [id number] Name: DARYL PELLETIER Rep #:[id number] : 1980 45 From: Pey[address] PCP: [facility] Hospital Status:ADM DANTE Y Race: C Location: [place] [id number] -1 Anesthesia: Postop Eval I Current Vital Signs [...] Postop Eval 1 completed: Yes 02/26/25 1205 <Electronically signed by Peyton Alejandra INSURANCE AND FINANCIAL SERVICES AGENT> Date _ Peyton Diazigner Signature: Date CC: ~ Signed [facility] Work Phone: 1(970) 928-674506-10-2025 Discharge summary Author Korey Myers [facility] Note Date/Time February 26, 2025 2:24 pm [facility] Medical Records Department [address] [place] [address] Instructions for Home/Discharge Instructions 02/26/25 1136 MR#: [id number] Acct: [id number] Name: DARYL PELLETIER Rep #:[id number] : 1980 45 From: Korey Myers MD PCP: [facility] Status:ADM DANTE Discharge Instructions Diet Discharge [...] Up With: Korey Myers MD When: Call [phone] for an appointment Test Results: Test results from this visit will be discussed in further detail at your follow- up appointment, if applicable. Discharge Plan Admission Admit Date/Time: 02/26/25 07:23 Primary Reason for Your Visit: kidney stone Attending Provider: Korey Myers Primary Care Provider: [facility] Discharge Orders/Prescriptions Prescriptions: New ciprofloxacin HCl [Cipro] 500 mg tablet 500 mg PO BID Qty: 6 0RF oxycodone 5 mg tablet 5 mg PO Q6H PRN (Reason: pain) 3 Days Qty: 20 0RF Referrals / Follow Up: Korey Myers MD [Med Staff - Active Staff] - [facility] [Primary Care Provider[facility] - Disposition Disposition (needs filled in before D/C Order can be placed): Home, Self Care 02/26/25 1136<Electronically signed by Korey Myers MD>Korey Myers MD CC: [facility] Hospital ~ Signed [facility] Work Phone: 1(337) 274-549206-10-2025 Consult note Author Jomar Kingston [facility] Note Date/Time February 26, 2025 10:5 5am [facility] Medical Records Department [address] [place] [address] Pre-Anesthesia Evaluation 02/26/25 1054 MR#: [id number] Acct: [id number] Name: DARYL PELLETIER Rep #:[id number] : 1980 45 From: Jomar Kingston MD PCP: [facility] Status:ADM DANTE Y Race: C Location: [place] [id number] -1 ASA Classification* ASA Classification ASA Classification: [...] CBC WBC 13.9 K/mm3 (4.4-11.0) H 02/25/25 15:29 5 RBC 5.21 M/mm3 (4.6-6.2) 02/25/25 15:02/25/25 Hgb 14.6 g/dL (13.0-16.5) 02/25/25 15:02/25/25 Hct 41.4 % (40-54) 02/25/25 15:29 02/25/25 Plt Count 242 K/mm3 (150-450) 02/25/25 15:29 02/25/25 CHEMISTRY Potassium 3.7 mmol/L (3.3-5.1) 02/25/25 15:29 02/25/25 Sodium 138 mmol/L (133-145) 02/25/25 15:29 02/25/25 BUN 13 mg/dL (4-19) 02/25/25 15:29 02/25/25 Creatinine 1.46 mg/dL (0.70-1.20) H 02/25/25 15:29 Glucose 101 mg/dL (70-99) H 02/25/25 15:29 02/25/25 COAG Pre-Assessment Diagnosis/Proposed Procedure Planned Operative Procedure(s): Cystoscopy ureteral stent placement. Anesthesia History Anesthesia History - manager business systems: Anesthesia History - manager business systems Hx Hospitalization Any Problems With Anesthesia No [...] take am of surgery PONV PONV - manager business systems: PONV - manager business systems Female HX of Motion Sickness HX of N/V After Surgery Non-Smoker Duration of Surgery greater than 60 minutes Number of Risk Factors PONV Score Height & Weight Height & Weight: Anesthesia: Height & Weight Height 6 ft 02/25/25 20:06 Weight: 94.347 kg 02/25/25 20:06 Body Mass Index (BMI) 28.2 02/25/25 20:06 Respiratory Assessment Respiratory Assessment - manager business systems: Respiratory Tract Infection Hx - manager business systems Hx Respiratory Tract Infection No 02/25/25 20:16 STOP Sleep Apnea STOP Sleep Apnea - manager business systems: STOP Sleep Apnea - manager business systems Hx Hypertension No 02/25/25 20:06 Hx Sleep [...] Tobacco Use History Tobacco Use History - manager business systems: Tobacco Use History - manager business systems Tobacco Use Smoking Status Current every day smoker 02/25/25 20:06 Hx Tobacco Use No 02/25/25 20:06 Years Smoking Packs Smoked per Day 1 02/25/25 20:06 Smoking Cessation Date was within the last 15 years Hx Smoking Cessation Date Hx Smoking Cessation No 02/25/25 20:06 Counseling Hematologic Medial History Hematologic Hx - manager business systems: 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 Hx of Blood Transfusion No 02/25/25 20:06 [...] confused, unrespo /Reproduction History /Reproductive History - manager business systems: /Reproductive Hx- manager business systems Hx Now No 02/25/25 20:16 Gestational Age (in weeks): EDC: Hx Hx Para Hx Section SAB No 02/25/25 20:16 Active Medications Active Medications: Current Medications Generic Name Dose Route Start Last Admin Trade Name Freq PRN Reason Stop Dose Admin Sodium Chloride 250 mls @ 15 mls/hr 02/25/25 20:01 IV .[id number] PRN Saline Flush Sodium Chloride 250 mls @ 15 mls/hr 02/25/25 20:01 IV .[id number] PRN Additional IVPB Infusion Sodium Chloride 1,000 [...] Signature: Date CC: ~ Signed [facility] Work Phone: [phone]) 137-992906-10-2025 Consult note [facility] Medical Records Department [address] [place] [address] Anesthesia Postop Eval I 02/26/25 1204 MR#: [id number] Acct: [id number] Name: DARYL PELLETIER Rep #:[id number] : 1980 45 From: Peyton LANE PCP: [facility] Status:ADM DANTE Y Race: C Location: [place] [address] Anesthesia: Postop Eval I Current Vital Signs [...] Postop Eval 1 completed: Yes 02/26/25 1205 INSURANCE AND FINANCIAL SERVICES AGENT> Date _ Peyton Alejandra INSURANCE AND FINANCIAL SERVICES AGENT Cosigner Signature: Date CC: ~ Signed [facility]06-10-[address] [facility] Medical Records Department [address] [place] [address] Operative Report 02/26/25 1138 MR#: [id number] Acct: [id number] Name: LEONARDO PELLETIERNATHAN Alfonso Rep #:[id number] : 1980 45 From: Korey Myers MD PCP: [facility] Status:ADM DANTE Location: [place] [address] Operative Report (Standard) Operative Information Date of Procedure: 02/26/25 Pre-Operative Diagnosis: Obstructing stone in the left mid ureter Post-Operative Diagnosis: The same Surgery/Procedure Performed: Cystoscopy left stent placement forest botany instructor: No Type of Anesthesia: General RN Documented [...] in usual fashion with about a 21 Chadian rigid cystourethroscope cannulated the left ureter with [...] (if applicable): CC: Dr. Korey Myers MD; [facility]~ Signed [facility]06-10-2025 Consult note [facility] Medical Records Department [address] [place] [address] Pre-Anesthesia Evaluation 02/26/25 1054 MR#: [id number] Acct: [id number] Name: DARYL PELLETIER Rep #:[id number] : 1980 45 From: Jomar Kingston MD PCP: [facility] Status:ADM DANTE Y Race: C Location: [facility] MS325 -1 ASA Classification* ASA Classification ASA [...] CBC WBC 13.9 K/mm3 (4.4-11.0) H 02/25/25 15:29 5 RBC 5.21 M/mm3 (4.6-6.2) 02/25/25 15:02/25/25 Hgb 14.6 g/dL (13.0-16.5) 02/25/25 15:02/25/25 Hct 41.4 % (40-54) 02/25/25 15:02/25/25 Plt Count 242 K/mm3 (150-450) 02/25/25 15:02/25/25 CHEMISTRY Potassium 3.7 mmol/L (3.3-5.1) 02/25/25 15:02/25/25 Sodium 138 mmol/L (133-145) 02/25/25 15:02/25/25 BUN 13 mg/dL (4-19) 02/25/25 15:02/25/25 Creatinine 1.46 mg/dL (0.70-1.20) H 02/25/25 15: Glucose 101 mg/dL (70-99) H 02/25/25 15:02/25/25 COAG Pre-Assessment Diagnosis/Proposed Procedure Planned Operative Procedure(s): Cystoscopy ureteral stent placement. Anesthesia History Anesthesia History - manager business systems: Anesthesia History - manager business systems Hx Hospitalization Any Problems With Anesthesia No [...] take am of surgery PONV PONV - manager business systems: PONV - manager business systems Female HX of Motion Sickness HX of N/V After Surgery Non-Smoker Duration of Surgery greater than 60 minutes Number of Risk Factors PONV Score Height & Weight Height & Weight: Anesthesia: Height & Weight Height 6 ft 02/25/25 20:06 Weight: 94.347 kg 02/25/25 20:06 Body Mass Index (BMI) 28.2 02/25/25 20:06 Respiratory Assessment Respiratory Assessment - manager business systems: Respiratory Tract Infection Hx - manager business systems Hx Respiratory Tract Infection No 02/25/25 20:16 STOP Sleep Apnea STOP Sleep Apnea - manager business systems: STOP Sleep Apnea - manager business systems Hx Hypertension No 02/25/25 20:06 Hx Sleep [...] Tobacco Use History Tobacco Use History - manager business systems: Tobacco Use History - manager business systems Tobacco Use Smoking Status Current every day smoker 02/25/25 20:06 Hx Tobacco Use No 02/25/25 20:06 Years Smoking Packs Smoked per Day 1 02/25/25 20:06 Smoking Cessation Date was within the last 15 years Hx Smoking Cessation Date Hx Smoking Cessation No 02/25/25 20:06 Counseling Hematologic Medial History Hematologic Hx - manager business systems: 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 Hx of Blood Transfusion No 02/25/25 20:06 [...] confused, unrespo /Reproduction History /Reproductive History - manager business systems: /Reproductive Hx- manager business systems Hx Now No 02/25/25 20:16 Gestational Age (in weeks): EDC: Hx Hx Para Hx Section SAB No 02/25/25 20:16 Active Medications Active Medications: Current Medications Generic Name Dose Route Start Last Admin Trade Name Freq PRN Reason Stop Dose Admin Sodium Chloride 250 mls @ 15 mls/hr 02/25/25 20:01 IV .[id number] PRN Saline Flush Sodium Chloride 250 mls @ 15 mls/hr 02/25/25 20:01 IV .[id number] PRN Additional IVPB Infusion Sodium Chloride 1,000 [...] Signature: Date CC: ~ Signed [facility]06-10-2025 History and physical note Author Korey Myers [facility] Note Date/Time February 26, 2025 7:39 am [facility] Medical Records Department [address] [place] [address] History & Physical Exam 02/26/25 0738 MR#: [id number] Acct: [id number] Name: DARYL PELLETIER Rep #:[id number] : 1980 45 From: Korey Myers MD PCP: [facility] Status:ADM DANTE Location[place] [facility] RS252-6 HPI - General General Date of Admission: [...] for shockwave lithotripsy the machine is available. [facility] Medical History Bipolar disorder Anxiety Depression [...] 74.7 H, Lymph % (Auto) 15.3 L, [place] % (Auto) 8.3, Eos % (Auto) 1.0, [...] Sl. Cloudy, Urine pH 7.0, Ur Specific Robbins 1.010, Urine Protein 30 H, Urine Glucose [...] 15:10 IMPRESSION: NORMAL SCROTAL ULTRASOUND. Reading Location: [facility] Abdomen/Pelvis CT 02/25/25 15:40 IMPRESSION: Obstructing stone within the left mid-distal ureter at the ureteropelvic junction with mild left hydroureteronephrosis and delayed nephrogram. Reading Location: [facility] Assessment & Plan Assessment/Plan (1) Left ureteral calculus: PLAN: admit for pain control plan for cystoscopy left stent placement today 02/26/25 0739 <Electronically signed by Korey Myers MD> Cosigner Signature (if applicable): CC: Dr. Korey Myers MD; [facility]~ Signed [facility] Work Phone: 1(357) 105-794206-10-2025 Evaluation note* Diagnosis Onset Date Resolution Status Admit Date Left ureteral calculus acute Ju sd 2024 7:23am [facility] Work Phone: 1(485) 129-948606-10-2025 Radiology Diagnostic study note [facility] Imaging Services [address] [place] [address] Abdomen Single View MR#: [id number] Acct: [id number] Name: DARYL PELLETIER Rep #: [id number] : 1980 M 45 From: Yvonne Pitt MD PCP: [facility] Status: ADM DANTE Study:Abdomen Single View Date of Exam: 02/26/25 Exam# [id number] Ordering Dr: Josue Myers MD EXAM: XR [...] renal calculi. No obvious nephrolithiasis. Reading Location: [facility] CC: Dr. Korey Myers MD; [facility] ~ Senior Ui Developer: Signed [facility]06-10-[address] [facility] Medical Records Department [address] [place] [address] History & Physical Exam 02/26/25 0738 MR#: [id number] Acct: [id number] Name: DARYL PELLETIER Rep #:[id number] : 1980 45 From: Korey Myers MD PCP: [facility] Status:ADM DANTE Location: [facility] RR143-4 HPI - General General Date of Admission: [...] for shockwave lithotripsy the machine is available. [facility] Medical History Bipolar disorder Anxiety Depression [...] 74.7 H, Lymph % (Auto) 15.3 L, [place] % (Auto) 8.3, Eos % (Auto) 1.0, [...] Sl. Cloudy, Urine pH 7.0, Ur Specific Robbins 1.010, Urine Protein 30 H, Urine Glucose [...] 15:10 IMPRESSION: NORMAL SCROTAL ULTRASOUND. Reading Location: [facility] Abdomen/Pelvis CT 02/25/25 15:40 IMPRESSION: Obstructing stone within the left mid-distal ureter at the ureteropelvic junction with mild left hydroureteronephrosis and delayed nephrogram. Reading Location: [facility] Assessment & Plan Assessment/Plan (1) Left ureteral calculus: PLAN: admit for pain control plan for cystoscopy left stent placement today 02/26/25 0739 Cosigner Signature (if applicable): CC: Dr. Korey Myers MD; [facility]~ Signed [facility]06-10-2025 [facility] Medical Records Department [address] [place] [address] History Physical Exam 02/26/25 0738 MR#: [id number] Acct: [id number] Name: DARYL PELLETIER Rep #: [id number] : 1980 45 From: Korey Myers MD PCP: [facility] Status:ADM DANTE Location: [place] RP353-3 HPI - General General Date of Admission: [...] for shockwave lithotripsy the machine is available. [facility] Medical History Bipolar disorder Anxiety Depression [...] inspection, nondistended, (more content not included)...[facility]06-09-2025 Discharge summary Author Live Pollock [facility] Note Date/Time February 25, 2025 7:31p m [facility] Medical Records Department [address] [place] [address] Emergency Department Summary 02/25/25 MR#: [id number] Acct: [id number] Name: DARYL PELLETIER Rep #:[id number] : 1980 45 From: Live mitchell DO PCP: [facility] Status:REG ER Location: ED ADDENDUM by [...] Pederson DO> Cosigner Signature (if applicable): cc: [facility] ~* Signed HPI History of Present [...] intact Psych: Cooperative, appropriate mood and affect [facility] Medical History PTSD (post-traumatic stress disorder) Home [...] 74.7 H Lymph % (Auto) 15.3 L [place] % (Auto) 8.3 Eos % (Auto) 1.0 [...] 15:10 IMPRESSION: NORMAL SCROTAL ULTRASOUND. Reading Location: [facility] Abdomen/Pelvis CT 02/25/25 15:40 IMPRESSION: Obstructing stone within the left mid-distal ureter at the ureteropelvic junction with mild left hydroureteronephrosis and delayed nephrogram. Reading Location: [id number] Discharge Plan Triage Chief Complaint: Male Pain/Injury ED Provider: Live Pollock Dx/Rx/DC Orders Prescriptions: No Action NK Primary Care Provider: [facility] Referrals: [facility] [Primary Care Provider] - Print Language: Sammarinese What to do if you have Problems For any increased pain, shortness of breath, bleeding, nausea or vomiting, chestpain, or any unexpected problems, contact your Primary Care Provider. Call [facility] ([phone]) or report to the closest Emergency Room. Call 911 if necessary. 02/25/25 1642 <Electronically signed by Live Pollock DO> Cosigner Signature (if applicable): CC: [facility] ~ Signed [facility] Work Phone: 1(871) 983-164606-09-[address] [facility] Medical Records Department [address] [place] [address] Emergency Department Summary 02/25/25 MR#: [id number] Acct: [id number] Name: DARYL PELLETIER Rep #:[id number] : 1980 45 From: Live mitchell DO PCP: [facility] Status:REG ER Location: ED ADDENDUM by [...] creatinine 02/25/251930 Cosigner Signature (if applicable): cc: [facility] ~* Signed HPI History of Present [...] intact Psych: Cooperative, appropriate mood and affect [facility] Medical History PTSD (post-traumatic stress disorder) Home [...] 74.7 H Lymph % (Auto) 15.3 L [place] % (Auto) 8.3 Eos % (Auto) 1.0 [...] 15:10 IMPRESSION: NORMAL SCROTAL ULTRASOUND. Reading Location: [id number] Abdomen/Pelvis CT 02/25/25 15:40 IMPRESSION: Obstructing stone within the left mid-distal ureter at the ureteropelvic junction with mild left hydroureteronephrosis and delayed nephrogram. Reading Location: [facility] Discharge Plan Triage Chief Complaint: Male Pain/Injury ED Provider: Live Pollock Dx/Rx/DC Orders Prescriptions: No Action NK Primary Care Provider: [facility] Referrals: [facility] [Primary Care Provider] - Print Language: Sammarinese What to do if you have Problems For any increased pain, shortness of breath, bleeding, nausea or vomiting, chestpain, or any unexpected problems, contact your Primary Care Provider. Call [facility] ([phone]) or report tothe closest Emergency Room. Call 911 if necessary. 02/25/25 1642 Cosigner Signature (if applicable): CC: [facility] ~ Signed [facility]06-09-2025 Radiology Diagnostic study note [facility] Imaging Services [address] [place] [address] Testicular with Arterial Flow MR#: [id number] Acct: [id number] Name: DARYL PELLETIER Rep #: [id number] : 1980 M 45 From: Tracy Canchola MD PCP: [facility] Status: REG ER Study:Testicular with Arterial Flow Date of E xam: 02/25/25 Exam# [id number] Ordering Dr: Live Peterson DO PROCEDURE: TESTICULAR [...] Flow IMPRESSION: NORMAL SCROTAL ULTRASOUND. Reading Location: [id number] CC: Dr. Live Pollock, ; [facility] ~ Senior Ui Developer: Signed [facility]06-09-2025 Radiology Diagnostic study note [facility] Imaging Services [address] [place], [place] [address] Abdomen/Pelvis W IV Cont ONLY MR#: [id number] Acct: [id number] Name: DARYL PELLETIER Rep #: [id number] : 1980 M 45 From: Yael Machado MD PCP: [facility] Status: REG ER Study:Abdomen/Pelvis W IV Cont ONLY Date of E xam: 02/25/25 Exam# [id number] Ordering Dr: Live Peterson DO PROCEDURE: ABDOMEN/PELVIS [...] left hydroureteronephrosis and delayed nephrogram. Reading Location: [id number] CC: Dr. Live Pollock DO; [facility] ~ Senior Ui Developer: Signed [facility]06-09-2025 Discharge summary Author Live Pollock [facility] Note Date/Time February 25, 2025 7:31p m [facility] Medical Records Department [address] [place] [address] Emergency Department Summary 02/25/25 MR#: [id number] Acct: [id number] Name: DARYL PELLETIER Rep #:[id number] : 1980 45 From: Live mitchell DO PCP: [facility] Status:REG ER Location: ED ADDENDUM by [...] Pederson DO> Cosigner Signature (if applicable): cc: [facility] ~* Signed HPI History of Present [...] intact Psych: Cooperative, appropriate mood and affect [facility] Medical History PTSD (post-traumatic stress disorder) Home [...] 74.7 H Lymph % (Auto) 15.3 L [place] % (Auto) 8.3 Eos % (Auto) 1.0 [...] 15:10 IMPRESSION: NORMAL SCROTAL ULTRASOUND. Reading Location: [facility] Abdomen/Pelvis CT 02/25/25 15:40 IMPRESSION: Obstructing stone within the left mid-distal ureter at the ureteropelvic junction with mild left hydroureteronephrosis and delayed nephrogram. Reading Location: [facility] Discharge Plan Triage Chief Complaint: Male Pain/Injury ED Provider: Live Pollock Dx/Rx/DC Orders Prescriptions: No Action NK Primary Care Provider: [facility] Referrals: [facility] [Primary Care Provider] - Print Language: Sammarinese What to do if you have Problems For any increased pain, shortness of breath, bleeding, nausea or vomiting, chestpain, or any unexpected problems, contact your Primary Care Provider. Call [facility] ([phone]) or report to the closest Emergency Room. Call 911 if necessary. 02/25/25 1642 <Electronically signed by Live Pollock DO> Cosigner Signature (if applicable): CC: [facility] ~ Signed [facility] Work Phone: 1(924) 918-387407-19-2023 Discharge summary Author Demetris Tatum [facility] April 07, 2023 12:22am Note Date/Time April 06, 2023 11:1 1pm [facility] Medical Records Department [address] [place] [address] Emergency Department Summary 04/06/23 MR#: [id number] Acct: [id number] Name: PRABHUDARYL W Rep #:[id number] : 1980 43 From: Demetris Tatum MD PCP: [facility] Status:REG ER Location: ED HPI History of [...] is controlled now. Tetanus Immunization: <5 years [facility] Medical History PTSD (post-traumatic stress disorder) Home [...] and Skinsutures Irrigated (ml): 80 Number of Sutures/Marion: 1 Suture Information: Ethilon, Horizontal, Mattress and [...] 20 mg PO DAILY Primary Care Provider: [facility] Referrals: Doctor,Your [Non-Staff] - 10 Day for suture removal (or urgent care/ER) Disposition Disposition: Home, Self Care What to do if you have Problems For any increased pain, shortness of breath, bleeding, nausea or vomiting, chestpain, or any unexpected problems, contact your Primary Care Provider. Call [facility] ([phone]) or report to the closest Emergency Room. Call 911 if necessary. 04/07/23 0022 <Electronically signed by Demetris Tatum MD> Cosigner Signature (if applicable): CC: [facility] ~ Signed [facility] Work Phone: Consult note Author Jomar Kingston [facility] Note Date/Time February 26, 2025 2:24 pm [facility] Medical Records Department [address] [place] [address] Anesthesia Postop Eval II 02/26/25 1254 MR#: [id number] Acct: [id number] Name: DARYL PELLETIER Rep #:[id number] : 1980 45 From: Jomar Kingston MD PCP: [facility] Status:ADM DANTE Y Race: C Location: [place] [id number] -1 Anesthesia Postop Eval I Sum Postop Eval Completion status Anesthesia document: Postop Eval 1 completed: Yes Anesthesia Postop Eval I Summary Anesthesia Postop Eval I Summary: Anesthesia Postop Eval I: Assessment Summary Airway patent Yes 02/26/25 12:05 INSURANCE AND FINANCIAL SERVICES AGENT.GDOTT Spontaneous unlabored Yes 02/26/25 12:05 INSURANCE AND FINANCIAL SERVICES AGENT.GDOTT respirations Mental status Awake,Calm 02/26/25 12:05 INSURANCE AND FINANCIAL SERVICES AGENT.GDOTT nausea No 02/26/25 12:05 INSURANCE AND FINANCIAL SERVICES AGENT.GDOTT Vomiting No 02/26/25 12:05 INSURANCE AND FINANCIAL SERVICES AGENT.GDOTT Anesthesia Postop Eval I: Fluid Summary Crystalloid volume administer 200 02/26/25 12:05 INSURANCE AND FINANCIAL SERVICES AGENT.GDOTT (ml) Colloids volume administered ( ml) Blood Product volume administered (ml) Total IV fluid infused 200 02/26/25 12:05 INSURANCE AND FINANCIAL SERVICES AGENT.GDOTT Anesthesia Postop Eval I: Summary Notes Anesthesia Complication No 02/26/25 12:05 INSURANCE AND FINANCIAL SERVICES AGENT.GDOTT Anesthesia Complication Comment: Post-operative progress note Anesthesia: Postop Eval II Evaluation Mental status: Awake Pain Level: 0 nausea: No Vomiting: No 02/26/25 1254 <Electronically signed by Jomar Kingston MD > Date _ Jomar Kingston MD [facility] Signature: Date CC: ~ Signed [facility] Work Phone: Evaluation noteNo assessment information available [facility] Work Phone: Reason for referral (narrative)No [facility] for [facility] Work Phone: Summary Purpose Family History No Family History Records FoundNo Family History Records FoundNo Family History Records Found Advance Directives No Advanced Directives Records Found Advance Directive Response Recorded Date/ Time Living Will Yes April 06, 2023 10:59pm Power of Assistant Refinery Operator Yes April 06 10:59pm Name of Medical Power of Assistant Refinery Operator Stacey Pelletier April 06, 2023 10:59pm Advance Directive Response Recorded Date/ Time Do you have a Healthcare Power of Assistant Refinery Operator? No February 25, 2025 3:03pm Advance Directive Response Recorded Date/ Time Do you have a Healthcare Power of Assistant Refinery Operator? Yes February 25, 2025 8:06pm Chief Complaint [...] section and content) DATE CREATED AUTHOR 09/21/2018 [facility] ([place]) DATE CREATED AUTHOR AUTHOR'S ORGANIZ ATION 09/25/2018 [facility] DATE CREATED AUTHOR AUTHOR'S ORGANIZ ATION 04/28/2025 [facility] Care Teams (unrecognized sec tion and content) Team Status: Active Member Role Status Dates [facility] Primary Care Provider Active Team Status: Inactive Member Role Status Dates [facility] Primary Care Provider Active Start: February 26, 2025 End: February 26, 2025 Dr. Live Pollock , Emergency Provider Activ e Start: February 26, [...] Team Status: Active Member Role Status Dates [facility] Primary Care Provider Active Start: February [...] Dr. Demetris Tatum MD Emergency Provider Active [facility] Primary Care Provider Active Goals (unrecognized [...] BE BASED ON THE PRIMARY CLINICAL RECORDS. [employer] provides no warranty or guarantee of the accuracy or completeness of information in this document.
[2025-05-11 17:27] LABS: Hematocrit 40.0 % (40-54); Hemoglobin 13.6 g/dL (13.0-16.5); Immature Granulocytes Count 0.080 X10^3/uL (0.0-0.0); Mean Corp Hgb Conc 34.0 g/dL (32-36); Mean Corpuscular Volume 82.1 fL (80-94); Mean Platelet Vol. 8.5 fl (6.2-12.0); NRBC Flagged by Analyzer 0 % (0-5); POSITIVE DIFFERENTIAL YES; Platelet Count 518 K/mm3 (150-450); RBC Distribution Width CV 12.6 % (11.6-14.6); RBC Distribution Width SD 38.0 fl (35.1-43.9); Red Blood Count 4.87 M/mm3 (4.6-6.2); White Blood Count 15.7 K/mm3 (4.4-11.0)
[2025-05-11 17:30] LABS: Differential Indicated SCAN CRITERIA MET
[2025-05-11 17:49] LABS: Anion Gap 15 (5-15); BUN 10 mg/dL (4-19); BUN/Creat Ratio 8.7 RATIO (10-20); Calcium,Total 9.1 mg/dL (7.6-11.0); Carbon Dioxide 24.7 mmol/L (21.0-32.0); Chloride 91 mmol/L (98-108); Estimated Creatinine Clearance 86.22 ml/min (50-250); Glucose 161 mg/dL (70-99); Potassium 3.9 mmol/L (3.3-5.1)
[2025-05-11 18:28] LABS: Mucous, Urine 0 SEEN /hpf (<or=2+)
[2025-05-11 18:30] VITALS: BP 114/62; PULSE 101; RESP 18; O2SAT 99
[2025-05-11 18:31] LABS: Differential Comment SCANNED
[2025-05-11 18:42] LABS: Glucose, Dipstick 50 mg/dl (Normal); Ketone-Dipstick 5 mg/dl (Negative); Leukocyte Esterase-Dipstick 100 /ul (Negative); Nitrite-Dipstick Positive (Negative); Occult Blood-Urine 250 /ul (Negative); Protein-Dipstick 100 mg/dl (Negative); Specific Gravity, Urine 1.020 (1.002-1.030)
[2025-05-11 18:44] LABS: Urine Bilirubin Dipstick 1 mg/dL (Negative)
[2025-05-11 18:45] LABS: Color, Urine Amber (Yellow)
[2025-05-11 19:39] LABS: Red Blood Cells-Urine > 100 SEEN /hpf (0-5)
[2025-05-11 19:42] LABS: Squamous Epithelial Cells - UA 10-25 SEEN /hpf (0-5)
[2025-05-11 20:00] VITALS: BP 110/60; PULSE 105; RESP 16; O2SAT 98
[2025-05-11] MEDS: Cefazolin 2 GM in 0.9% Normal Saline (100mL Bag) 100 ML IV (20:03)
--- NOTE | 2025-05-11 20:31 | HP.PCM.HOS_ITS ---
HPI - General General Date of Admission: 05/11/25 Date of Service: 05/11/25 Chief Complaint: Hematuria, L flank pain. HPI Narrative The patient is a 45 y/o M w/ PMHx: CKD stage II per GFR trending, Former EtOH abuse sober x 2 years, Former Methamphetamine abuse clean x 6 months, RLS, Anxiety and Depression/Bipolar disorder, HTN, Tobacco use, Chronic migraines, 02/26/2025 cystoscopy with left stent placement secondary obstructing stone in the left mid ureter discharged on oral ciprofloxacin who now re-presents to the [facility] ED on 05/11/25 with most recent follow-up with urology at the [facility] on 05/02/2025 arranged however he missed his visit and 4 days prior to current presentation began to have increasing progressively worsening left flank pain as well as ongoing persistent hematuria with no fevers or chills self ministering Excedrin however without marked relief prompting eventual ED evaluation. In the ED upon evaluation he notes his pain is dull aching and rates it 2-3 out of 10 in severity at rest, more with palpation. Workup in the ED included T99.9, heart rate initially 121, BP 131/82, respiratory rate 18, 100% on room air with most recent repeat vitals heart rate 105, BP 110/60, respiratory rate 16, 98% on room air, CBC with WC 15.7, hemoglobin 13.6, platelet 518 with left shift, BMP with sodium 130, chloride 91, BUN/creatinine 10/1.20, GFR 76, glucose 161, lactic acid 2.3, urinalysis noted to be turbid, specific [place] 1.020, protein 100, glucose 50, ketone 5, occult blood 250, positive nitrate, leukocyte Estrace 100, urine RBCs greater than 100, urine WBCs 25-50 although not the best sample as noted squamous epithelial cells to 10-25, 3+ urine bacteria, urine culture pending per ED, CT abdomen and pelvis without contrast with improvement of previous hydronephrosis status post stent placement however ureteral stone still suspected to remain present. In the ED patient administered 1 L normal saline, Ancef 2 g IV x 1, Toradol 15 mg IV x 1, Levaquin 750 mg IV x 1, morphine 4 mg IV x 1, Zofran 4 mg IV x 2. [facility] Medical History Loss of hearing Arthritis Narcolepsy Restless legs Injury of head and neck Gastric reflux History of Borjas's esophagus History of edema History of stress test Hypertension History of electroconvulsive therapy Hx of fracture of ankle History of fracture of tibia Bipolar disorder Anxiety Depression Smoker Migraines PTSD (post-traumatic stress disorder) Home Medications ?Medication ?Instructions ?Recorded ?Last Taken ?Type NK 05/11/25 Unknown History Allergy/AdvReac Type Severity Reaction Status Date / Time Penicillins Allergy PT UNSURE Verified 05/11/25 16:33 OF REACTION Family History (Updated 05/11/25 @ 20:[address] Emely Foster MD) Mother , secondary to sepsis following bladder-mesh surgery per patient report. No problems noted. Father CAD (coronary artery disease) Heart disease Hypertension Myocardial infarction Surgical History History of esophagogastroduodenoscopy (EGD) History of cystoscopy Hx of sinus surgery Social History (Updated 05/11/25 @ 20:[address] Emely Foster MD) household members: none Smoking Status: Current every day smoker tobacco type: cigarettes Smoking packs per day: 1 Smoking cigarettes per day: 20.0 alcohol intake: former details: Sober x 2 years. substance use type: former substance user Date of last use: Clean x 6 months, primarily methamphetamine use prior. ROS ROS Narrative Admission Review of Systems: CONSTITUTIONAL: No weight loss, fever, chills, + weakness or fatigue. HEENT: + Chronic migraines. Eyes: No visual loss, blurred vision, double vision or yellow sclerae. Ears, Nose, Throat: No hearing loss, sneezing, congestion, runny nose or sore throat. SKIN: No rash or itching, lesions, wounds. CARDIOVASCULAR: No chest pain, chest pressure or chest discomfort, palpitations, edema, orthopnea, syncopal events. RESPIRATORY: No shortness of breath, cough or sputum, wheezing, hemoptysis. GASTROINTESTINAL: + anorexia, left flank pain. No nausea, vomiting, diarrhea, melena, BRBPR. GENITOURINARY: + Hematuria, left flank pain. No dysuria, frequency, urgency or retention. NEUROLOGICAL: + Chronic migraines. No dizziness, syncope, paralysis, ataxia, numbness or tingling in the extremities, focal weakness, change in bowel or bladder control, seizure. MUSCULOSKELETAL: + muscle, back pain, joint pain or stiffness. HEMATOLOGIC: No anemia. + Hematuria as noted. LYMPHATICS: No enlarged nodes. No history of splenectomy. PSYCHIATRIC: + History of anxiety and depression/bipolar disorder. ENDOCRINOLOGIC: No reports of sweating, cold or heat intolerance. No polyuria or polydipsia. ALLERGIES: No history of asthma, hives, eczema or rhinitis. Vital Signs Vital Signs Vital Signs: 05/11/25 16:31 05/11/25 18:30 05/11/25 20:00 Temperature 99.9 F H Temperature Source Oral Pulse Rate 121 H 101 H 105 H Respiratory Rate 18 18 16 Blood Pressure 131/82 H 114/62 110/60 Blood Pressure Mean 98 79 76 Pulse Ox 100 99 98 Oxygen Delivery Method Room Air Room Air Room Air Weight Weight: 193 lb 3 oz Body Mass Index (BMI) 26.2 Physical Exam Narrative Physical Examination: General: Awake, alert, oriented x 3 and cooperative, laying in the ED bed on his side, fatigued and ill-appearing, rates discomfort to the left flank 2-3 out of 10 in severity, dull aching. Skin: Normal color, normal turgor, no icterus, no cyanosis except occasional stage ecchymoses, abrasions, several tattoos. HEENT: AT/NC, EOMI, PERRLA, dry MM, no carotid bruits or JVD noted. Lungs: CTA bilaterally, moderate effort, mild decrease BL bases, no rales, ronchi or wheezing. Heart: Mildly tachycardic with regular rhythm; no gallop, rub audible. Abdomen: Soft, abdomen in general nontender to palpation however left flank with some discomfort with palpation, no rebound or guarding, no marked distention, mildly hyperactive BS, no discerned HSM. Extremities: No cyanosis, clubbing, or edema. Neurological: Patient awake, alert, oriented as no, cognitive function intact; pupils equally reactive to light and accommodation, cranial nerves grossly normal, moving all 4 extremities, no focal deficits, strength moderately globally decreased. Psychiatric: Affect appears fatigued, ill-appearing, no acute evidence of depressive or anxiety feelings but does have underlying notable psychiatric history. Results Lab / Micro Data 05/11/25 17:17 05/11/25 17:17 Labs: Laboratory Results - last 24 hr 05/11/25 17:17: WBC 15.7 H, RBC 4.87, Hgb 13.6, Hct 40.0, MCV 82.1, MCH 27.9, MCHC 34.0, RDW Std Deviation 38.0, RDW Coeff of Tom 12.6, Plt Count 518 H, MPV 8.5, Immature Gran % (Auto) 0.500, Neut % (Auto) 79.9 H, Lymph % (Auto) 6.2 L, M mayo % (Auto) 13.2 H, Eos % (Auto) 0.1, Baso % (Auto) 0.1, Absolute Neuts (auto) 12.5 H, Absolute Lymphs (auto) 0.98, Nucleated RBC % 0, Differential Comment SCANNED, Platelet Estimate MOD INC, Sodium 130 L, Potassium 3.9, Chloride 91 L, Carbon Dioxide 24.7, Anion Gap 15, BUN 10, Creatinine 1.20, Estim Creat Clear Calc 86.22, Est GFR (MDRD) Non-Af 76, BUN/Creatinine Ratio 8.7 L, Glucose 161 H, Calcium 9.1 05/11/25 17:25: Lactic Acid 2.3 H* 05/11/25 18:22: Urine Color Earlene, Urine Clarity Turbid, Urine pH 6.0, Ur Specific [place] 1.020, Urine Protein 100 H, Urine Glucose (UA) 50 H, Urine Ketones 5 H, Urine Occult Blood 250 H, Urine Nitrite Positive H, Urine Bilirubin 1 H, Urine Urobilinogen 8 H, Ur Leukocyte Esterase 100 H, Urine RBC > 100 SEEN, Urine WBC 25-50 SEEN, Ur Squamous Epith Cells 10-25 SEEN, Urine Bacteria 3+, Urine Mucus 0 SEEN Imaging Radiology Impression Abdomen/Pelvis CT 05/11/25 16:59 IMPRESSION: Improvement in hydronephrosis status post stent placement. Ureteral stone is still suspected to remain present Reading [facility] Assessment & Plan Assessment/Plan (1) Urinary tract infection: PLAN: Plan The patient is a 45 y/o M w/ PMHx: CKD stage II per GFR trending, Former EtOH abuse, Former Methamphetamine abuse, RLS, Anxiety and Depression/Bipolar disorder, HTN, Tobacco use, Chronic migraines, 02/26/2025 cystoscopy with left stent placement secondary obstructing stone in the left mid ureter discharged on oral ciprofloxacin who now re-presents to the [facility] ED on 05/11/25 with most recent follow-up with urology at the [place] on 05/02/2025 arranged however he missed his visit and 4 days prior to current presentation began to have increasing progressively worsening left flank pain as well as ongoing persistent hematuria with no fevers or chills self ministering Excedrin however without marked relief prompting eventual ED evaluation. #1. Persistent left flank pain, hematuria secondary to Acute Complicated Urinary Tract Infection in the setting of previous ureteral stent placement with suspected remaining ureteral stone with mild lactic acidosis: Will admit to [facility] given stable vital signs, UA upon ED evaluation remarkable, pending UCx, continue IVFs, monitor I/Os, continue IV Rocephin w/ transition as able pending sensitivities and speciation. Will consult Urology as stent at this point needs to be removed given timeline. #2. Acute hyponatremia, hypochloremia, suspected hypovolemic with acute presentation #1, poor intake: Admission sodium 130, chloride 91, continue aggressive hydration, repeat CMP in AM. #3. Hyperglycemia without diabetic history: Admission glucose 161, suspect likely stress response given #1, will obtain hemoglobin A1c however to be cautious given lack of follow-up history. #4. Chronic Kidney Disease Stage II per GFR trending: Admission BUN/Cr 06/19.20, GFR 70, baseline renal function 1.0-1.4 however 1.46 on 02/25/2025 may have been elevated in the acute situation thus unclear exact baseline, continue to trend to further elucidate. #5. Hypertension: Chart reported, currently BP normal range, not on any regimen per records, potentially diet/lifestyle managed, continue to monitor add if appropriate, as needed IV hydralazine. #6. Anxiety and depression/bipolar disorder/PTSD: Not on regimen but clarifying, [facility], [facility] 2021 suicidal ideation evaluation with psychiatric facility placement at that time #7. Former alcohol abuse, methamphetamine abuse: UDS requested, ethyl alcohol level requested. Reports being clean x 6 months and sober x 2 years. #8. Tobacco Abuse: Encouraged cessation, inpatient consultation per RT, NR if desired. #9. Restless leg syndrome: Per current list does not appear to be on regimen, may add if necessary. #10. DVT prophylaxis: SCDs, defer any chemoprophylaxis given hematuria. Charges/Coding Visit Charges Inpatient E&M: 17346 Init Hosp L3
[2025-05-11 20:47] VITALS: BP 124/56; PULSE 115; RESP 18; TEMP 37; O2SAT 97
--- OUTSIDE RECORDS SUMMARY | 2025-05-11 21:07 | XMS RPT_ITS | CCD ---
Author Organization [facility] Care Team Providers Care Tool Maintenance Technician Name Role Phone DOT CRUMP Unavailable Unavailable PHYSICIAN, NONE Unavailable Unavailable RADHA CHUA (LICENSED ELECTRICIAN) Unavailable [place] [place] Primary Care Provider [facility] Phill ROMAN, Dr. Mancini Emergency Provider Louis KATE, Dr. Korey Lua Admit Provider Louis KATE, Dr. Korey Lua Attending Provider Louis KATE, Dr. Korey Lua Referring Provider [facility] Provider [facility] DO, Dr. Mancini Emergency Provider Louis KATE, Dr. Korey Lua Admit Provider [phone] Louis KATE, Dr. Korey Lua Attending Provider Louis KATE, Dr. Korey Lua Referring Provider [facility] Unavailable Korey Myers Attending Unavailable Korey Myers Admitting [facility] Unavailable Korey Myers Referring Unavailable Korey Myers Attending Unavailable Allergies Allergy Classification Reported Allergen(s) Allergy Type Date of Onset Reaction(s) Facility (5 sources) Penicillins; Translations: [PENICILLINS] Propensity to adverse reactions to drug (disorder) 8 AOF, PT UNSURE OF REACTION [facility] Repository Medications Current Medications Medication Drug Class(es) Dates Sig (Normalized) Sig (Original) ciprofloxacin 500 mg oral tablet (1 source) Quinolone Antimicrobial Start: 02-26-2025 take 1 tablet by mouth twice daily Ciprofloxacin Hcl (Cipro) 500 mg tablet Active 500 mg PO TWICE A DAY February 26, 2025 12:00am Provencal (Nk) (1 source) Start: 02-25-2025 Provencal (Nk) Active February 25, 2025 12:00am oxyCODONE [...] Reference Range Facility MR/PAT.Neal 03-01-2025 MR/PAT.ANE [facility] Medical Records Department [address] [place] [address] PAT - Anesthesia 03/01/25 1153 MR#: [id number] Acct: [id number] Name: DARYL PELLETIER Rep #: [id number] : 1980 45 From: Jomar Kingston MD PCP: [place] [facility] Status:PRE [facility] Y Race: C Location: [facility] Pre-Assessment Diagnosis/Proposed Procedure Planned Operative Procedure(s): ESWL CYSTO STENT REMOVAL LEFT Anesthesia History Anesthesia History - attending urologist: Anesthesia History - attending urologist Hx Hospitalization Yes: 02/202502/28/25 13:00 Any Problems [...] take am of surgery PONV PONV - attending urologist: PONV - attending urologist Female No 02/28/25 13:00 HX of Motion Sickness No 02/28/25 13:00 HX of N/V After Surgery No 02/28/25 13:00 Non-Smoker No 02/28/25 13:00 Duration of Surgery greater Yes 02/28/25 13:00 than 60 minutes Number of Risk Factors 1 02/28/25 13:00 PONV Score Low Risk 02/28/25 13:00 Height Weight Height Weight: Anesthesia: Height Weight Height 6 ft 02/25/25 20:06 Respiratory Assessment Respiratory Assessment - attending urologist: Respiratory Tract Infection Hx - attending urologist Hx Respiratory Tract Infection No 02/28/25 13:00 STOP Sleep Apnea STOP Sleep Apnea - attending urologist: STOP Sleep Apnea - attending urologist Hx Hypertension Yes: NO MEDS FOR 3 [...] Tobacco Use History Tobacco Use History - attending urologist: Tobacco Use History - attending urologist Tobacco Use Smoking Status Current every day smoker 02/28/25 13:00 Hx Tobacco Use No 02/28/25 13:00 Years Smoking Packs Smoked per Day Smoking Cessation Date was within the last 15 years Hx Smoking Cessation Date Hx Smoking Cessation No 02/28/25 13:00 Counseling Hematologic Medial History Hematologic Hx - attending urologist: 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 [facility] Abdomen Single Viewon 2024 Abdomen Single View [facility] Imaging Services [address] [place] [address] Abdomen Single View MR#: [id number] Acct: [id number] Name: DARYL PELLETIER Rep #: [id number] : 1980 M 45 From: Abdi Pitt MD PCP: [facility] Status: ADM DANTE Study: Abdomen Single View Date of Exam: 02/26/25 Exam# [id number] Ordering Dr: Korey Myers MD EXAM: XR [...] renal calculi. No obvious nephrolithiasis. Reading Location: [facility] CC: Dr. Korey Myers MD; [facility] Grocery Cashier: Signed Normal [facility] Discharge Instructionon 02-17 Discharge Instruction [facility] Medical Records Department [address] [place] [address] Instructions for Home/Discharge Instructions 02/26/25 1136 MR#: [id number] Acct: [id number] Name: PRABHUDARYL W Rep #: [id number] : 1980 45 From: Korey Myers MD PCP: [facility] Status:ADM DANTE Discharge Instructions Diet Discharge Diet: No restrictions DC O2, CPAP, BIPAP needs Home O2 Discharge instructions: No Dressing / Incision Discharge Activity: Return to Normal Activity and May Not Drive (while taking narcotic pain medications.) Dressing / Incision Call your doctor if you observe: Fever of 101 or Higher Follow Up Care Please Follow Up With: Korey Myers MD When: Call [phone] for an appointment Test Results: Test results from this visit will be discussed in further detail at your follow-up appointment, if applicable. Discharge Plan Admission Admit Date/Time: 02/26/25 07:23 Primary Reason for Your Visit: kidney stone Attending Provider: Korey Myers Primary Care Provider: [facility] Discharge Orders/Prescriptions Prescriptions: New ciprofloxacin HCl [Cipro] 500 mg tablet 500 mg PO BID Qty: 6 0RF oxycodone 5 mg tablet 5 mg PO Q6H PRN (Reason: pain) 3 Days Qty: 20 0RF Referrals / Follow Up: Korey Myers MD [Med Staff - Active Staff] - [facility] [Primary Care Provider] - Disposition Disposition (needs filled in before D/C Order can be placed): Home, Self Care 02/26/251135 Korey Myers MD CC: [facility] Signed Normal [facility] MR/POSTOP.ANEkenny 02-26-2025 MR/POSTOP.ANE [facility] Medical Records Department [address] [place] [address] Anesthesia Postop Eval I 02/26/25 1204 MR#: [id number] Acct: [id number] Name: DARYL PELLETIER Alfonso Rep #: [id number] : 1980 45 From: Peyton Alejandra CRNA PCP: [facility] Status:ADM DANTE Y Race: C Location: [address] Anesthesia: Postop Eval I Current Vital [...] completed: Yes 02/26/25 1205 Date Peyton Alejandra EXCELSIOR MACHINE OPERATOR Cosigner Signature: Date CC: Signed [facility] MR/[id number] 02-26-2025 [facility] Medical Records Department [address] [place] [address] Anesthesia Postop Eval II 02/26/25 1254 MR#: [id number] Acct: [id number] Name: LEONARDO PELLETIERGEOVANNI Hamilton Rep #: [id number] : 1980 45 From: Jomar Kingston MD PCP: [facility] Status:ADM DANTE Y Race: C Location: [address] Anesthesia Postop Eval I Sum Postop Eval Completion status Anesthesia document: Postop Eval 1 completed: Yes Anesthesia Postop Eval I Summary Anesthesia Postop Eval I Summary: Anesthesia Postop Eval I: Assessment Summary Airway patent Yes 02/26/25 12:05 EXCELSIOR MACHINE OPERATOR.GDOTT Spontaneous unlabored Yes 02/26/25 12:05 EXCELSIOR MACHINE OPERATOR.GDOTT respirations Mental status Awake,Calm 02/26/25 12:05 EXCELSIOR MACHINE OPERATOR.GDOTT nausea No 02/26/25 12:05 EXCELSIOR MACHINE OPERATOR.GDOTT Vomiting No 02/26/25 12:05 EXCELSIOR MACHINE OPERATOR.GDOTT Anesthesia Postop Eval I: Fluid Summary Crystalloid volume administer 200 02/26/25 12:05 EXCELSIOR MACHINE OPERATOR.GDOTT (ml) Colloids volume administered ( ml) Blood Product volume administered (ml) Total IV fluid infused 200 02/26/25 12:05 EXCELSIOR MACHINE OPERATOR.GDOTT Anesthesia Postop Eval I: Summary Notes Anesthesia Complication No 02/26/25 12:05 EXCELSIOR MACHINE OPERATOR.GDOTT Anesthesia Complication Comment: Post-operative progress note Anesthesia: Postop Eval II Evaluation Mental status: Awake Pain Level: 0 nausea: No Vomiting: No 02/26/25 1254 Date Jomar Segovia Signature: Date CC: Signed [facility] Operative Reporton 5 Operative Report [facility] Medical Records Department [address] [place] [address] Operative Report 02/26/25 1138 MR#: [id number] Acct: [id number] Name: DARYL PELLETIER Rep #: [id number] : 1980 45 From: Korey Myers MD PCP: [facility] Status:ADM DANTE Location: [place] [address] Operative Report (Standard) Operative Information Date of Procedure: 02/26/25 Pre-Operative Diagnosis: Obstructing stone in the left mid ureter Post-Operative Diagnosis: The same Surgery/Procedure Performed: Cystoscopy left stent placement pumper brewery: No Type of Anesthesia: General RN Documented [...] in usual fashion with about a 21 Algerian rigid cystourethroscope cannulated the left ureter with [...] (if applicable): CC: Dr. Korey Myers MD; [facility] Signed Normal [facility] Abdomen/Pelvis W IV Cont ONL Yon 02-25-2025 Abdomen/Pelvis W IV Cont ONLY [facility] Imaging Services [address] [place], [place] [address] Abdomen/Pelvis W IV Cont ONLY MR#: [id number] Acct: [id number] Name: DARYL PELLETIER Rep #: [id number] : 1980 M 45 From: Hilary Marinelli nd, MD PCP: [facility] Status: REG ER Study: Abdomen/Pelvis W IV Cont ONLY Date of Exam: Exam# [id number] Ordering Dr: Live Pollock DO PROCEDURE: ABDOMEN/PELVIS [...] left hydroureteronephrosis and delayed nephrogram. Reading Location: [id number] CC: Dr. Live Pollock, [facility] Grocery Cashier: Signed Normal [facility] Absolute lymphocyte countOrd ered By: Live Pollock on 02-25-2025 Lymphocytes Auto (Unsp spec) [#/Vol] 2.13 10*3/uL 0.83-4.51 [facility] Absolute neutrophil countOrd ered By: Live Pollock on 02-25-2025 Neutrophils (Bld) [#/Vol] 10.4 10*3/uL High 2.0-7.7 [facility] Anion gap in Serum or Plasma Ordered By: Live Pollock on 02-25-2025 Anion gap [Moles/Vol] 12 mmol/L 5-15 [facility] Automated lymphocyte count a s percentage of total leukocytesOrdered By: Live Pollock on 02-25-2025 Lymphocytes/100 WBC Auto (Unsp spec) 15.3 % Low 19-41 [facility] BUN/creatinine ratioOrdered By: Live RecinosAkash on 02-25-2025 Urea nitrogen/Creatinine [Mass ratio] 9.2 mg/mg Low 10-20 [facility] Basophil percentageOrdered B y: Live Phill on 02-25-2025 Basophils/100 WBC (Bld) 0.3 % 0-1 [facility] Bilirubin Test strip Ql (U)O rdered By: Live Pollock on 02-25-2025 Bilirubin Ql (U) Negative Negative [facility] Bilirubin, totalOrdered By: Live NealGerson on 02-25-2025 Bilirubin [Mass/Vol] 0.49 mg/dL 0.00-1.30 [facility] CBC W/Diff, Automatedon Absolute Lymph 2.13 X10 3/uL Normal 0.83-4.51 [facility] Comment on above: Performed By: #### L 100.0100 ####[facility] [address] [place], [address] Absolute Neut 10.4 X10 3/uL High 2.0-7.7 [facility] Comment on above: Performed By: #### L 100.0100 ####[facility] [address] [place], [address] Basophils/100 WBC (Bld) 0.3 % Normal 0-1 [facility] Comment on above: Performed By: #### L 100.0100 ####[facility] [address] [place], [address] Eosinophils/100 WBC (Bld) 1.0 % Normal 0-5 [facility] Comment on above: Performed By: #### L 100.0100 ####[facility] [address] [place], [address] Erythrocyte distribution width (RBC) [Ratio] 12.1 % Normal 11.6-14.6 [facility] Comment on above: Performed By: #### L 100.0100 ####[facility] [address] [place], [address] Hematocrit (Bld) [Volume fraction] 41.4 % Normal 40-54 [facility] Comment on above: Performed By: #### L 100.0100 ####[facility] [address] [place], [address] Hemoglobin (Bld) [Mass/Vol] 14.6 g/dL Normal 13.0-16.5 [facility] Comment on above: Performed By: #### L 100.0100 ####[facility] [address] [place], [address] IG% 0.400 Normal 0.0-0.9 [facility] Comment on above: Result Comment: IG% - Immature Granulocytes (promyelocytes, myelocytes and metamyelocytes) > 1% indicates that a LEFT SHIFT is Present. Performed By: #### L 100.0100 ####[facility] [address] [place], [address] Lymphocytes/100 WBC (Bld) 15.3 % Low 19-41 [facility] Comment on above: Performed By: #### L 100.0100 ####[facility] [address] [place], [address] MCH (RBC) [Entitic mass] 28.0 pg Normal 27.0-32.0 [facility] Comment on above: Performed By: #### L 100.0100 ####[facility] [address] [place], [address] MCHC (RBC) [Mass/Vol] 35.3 g/dL Normal 32-36 [facility] Comment on above: Performed By: #### L 100.0100 ####[facility] [address] [place], [address] MCV (RBC) [Entitic vol] 79.5 fL Low 80-94 [facility] Comment on above: Performed By: #### L 100.0100 ####[facility] [address] [place], [address] Monocytes/100 WBC (Bld) 8.3 % Normal 0-10 [facility] Comment on above: Performed By: #### L 100.0100 ####[facility] [address] [place], [address] Neutrophils/100 WBC (Bld) 74.7 % High 47-70 [facility] Comment on above: Performed By: #### L 100.0100 ####[facility] [address] [place], [address] Nucleated RBC (Bld) [#/Vol] 0 10*3/uL Normal 0-5 [facility] Comment on above: Performed By: #### L 100.0100 ####[facility] [address] [place], [address] Platelet mean volume (Bld) [Entitic vol] 9.1 fL Normal 6.2-12.0 [facility] Comment on above: Performed By: #### L 100.0100 ####[facility] [address] [place], [address] Platelets (Bld) [#/Vol] 242 10*3/uL Normal 150-450 [facility] Comment on above: Performed By: #### L 100.0100 ####[facility] [address] [place], [address] RBC (Bld) [#/Vol] 5.21 10*6/uL Normal 4.6-6.2 [facility] Comment on above: Performed By: #### L 100.0100 ####[facility] [address] [place], [address] RDW SD 34.8 fl Low 35.1-43.9 [facility] Comment on above: Performed By: #### L 100.0100 ####[facility] [address] [place], [address] WBC (Bld) [#/Vol] 13.9 10*3/uL High 4.4-11.0 [facility] Comment on above: Performed By: #### L 100.0100 ####[facility] [address] [place], [address] Carbon dioxide, total [Moles /volume] in Central venous bloodOrdered By: Live Pollock on 02-25-2025 CO2 [Moles/Vol] 21.7 mmol/L 21.0-32.0 [facility] Chloride assayOrdered By: Tiago Pollock on 02-25-2025 Chloride [Moles/Vol] 104 mmol/L 98-108 [facility] Comprehensive Metabolic Prof ilon 02-25-2025 Albumin [Mass/Vol] 3.9 g/dL Normal 3.5-5.0 [facility] Comment on above: Performed By: #### L 500.4050, L503.6005 ####[facility] [address] [place], [address] Albumin/Globulin [Mass ratio] 1.7 {ratio} Normal 0.9-2.4 [facility] Comment on above: Performed By: #### L 500.4050, L503.6005 ####[facility] [address] [place], [address] ALK PHOS 68 U/L Normal 40-129 [facility] Comment on above: Performed By: #### L 500.4050, L503.6005 ####[facility] [address] [place], [address] ALT [Catalytic activity/Vol] 17 U/L Normal <=46 [facility] Comment on above: Performed By: #### L 500.4050, L503.6005 ####[facility] [address] [place], [address] AST [Catalytic activity/Vol] 29 U/L Normal <=37 [facility] Comment on above: Performed By: #### L 500.4050, L503.6005 ####[facility] [address] [place], [address] Bilirubin [Mass/Vol] 0.49 mg/dL Normal 0.00-1.30 [facility] Comment on above: Performed By: #### L 500.4050, L503.6005 ####[facility] [address] [place], [address] BUN/CRE 9.2 RATIO Low 10-20 [facility] Comment on above: Performed By: #### L 500.4050, L503.6005 ####[facility] [address] [place], [address] Calcium [Mass/Vol] 8.9 mg/dL Normal 7.6-11.0 [facility] Comment on above: Performed By: #### L 500.4050, L503.6005 ####[facility] [address] [place], [address] Chloride [Moles/Vol] 104 mmol/L Normal 98-108 [facility] Comment on above: Performed By: #### L 500.4050, L503.6005 ####[facility] [address] [place], [address] CO2 [Moles/Vol] 21.7 mmol/L Normal 21.0-32.0 [facility] Comment on above: Performed By: #### L 500.4050, L503.6005 ####[facility] [address] [place], [address] Creatinine [Mass/Vol] 1.46 mg/dL High 0.70-1.20 [facility] Comment on above: Performed By: #### L 500.4050, L503.6005 ####[facility] [address] [place], [address] ECRCL 70.87 ml/min Normal 50-250 [facility] Comment on above: Performed By: #### L 500.4050, L503.6005 ####[facility] [address] [place], [address] GAP 12 Normal 5-15 [facility] Comment on above: Performed By: #### L 500.4050, L503.6005 ####[facility] [address] [place], [address] GFR/1.73 sq M.predicted among non-blacks MDRD (S/P/Bld) [Vol rate/Area] 60 mL/min/{1.73_m2} Normal >60 [facility] Comment on above: Result Comment: mL/m in/1.73m2 CKD-EPI Creatinine Equation (2020) Performed By: #### L 500.4050, L503.6005 ####[facility] [address] [place], [address] Globulin (S) [Mass/Vol] 2.3 g/dL Normal 2.2-4.2 [facility] Comment on above: Performed By: #### L 500.4050, L503.6005 ####[facility] [address] [place], [address] Glucose [Mass/Vol] 101 mg/dL High 70-99 [facility] Comment on above: Performed By: #### L 500.4050, L503.6005 ####[facility] [address] [place], [address] Potassium [Moles/Vol] 3.7 mmol/L Normal 3.3-5.1 [facility] Comment on above: Performed By: #### L 500.4050, L503.6005 ####[facility] [address] [place], [address] Sodium [Moles/Vol] 138 mmol/L Normal 133-145 [facility] Comment on above: Performed By: #### L 500.4050, L503.6005 ####[facility] [address] [place], [address] T PROT 6.2 g/dL Normal 5.9-8.4 [facility] Comment on above: Performed By: #### L 500.4050, L503.6005 ####[facility] [address] [place], [address] Urea nitrogen [Mass/Vol] 13 mg/dL Normal 4-19 [facility] Comment on above: Performed By: #### L 500.4050, L503.6005 ####[facility] [address] [place], [address] Emergency Department Summary on 02-25-2025 Emergency Department Summary [facility] Medical Records Department [address] [place] [address] Emergency Department Summary 02/25/25 MR#: [id number] Acct: [id number] Name: DARYL PELLETIER Rep #: [id number] : 1980 45 From: Live Pollock DO PCP: [facility] Status:REG ER Location: ED ADDENDUM by Dr. [...] creatinine 02/25/251930 Cosigner Signature (if applicable): cc: [facility] * Signed HPI History of Present Illness [...] intact Psych: Cooperative, appropriate mood and affect [facility] Medical History PTSD (post-traumatic stress disorder) [...] physician. P (more content not included)... Normal [facility] Eosinophil percentageOrdered By: Liverasheeda Pollock on 02-25-2025 Eosinophils/100 WBC (Bld) 1.0 % 0-5 [facility] Erythrocyte distribution wid th ratioOrdered By: [place] JorjeYinka on 02-25-2025 Erythrocyte distribution width (RBC) [Ratio] 12.1 % 11.6-14.6 [facility] Erythrocyte distribution wid th standard deviationOrdered By: [facility] Yinka on 02-25-2025 Erythrocyte distribution width (RBC) [Ratio] 34.8 fl Low 35.1-43.9 [facility] Glomerular filtration rate ( GFR) estimation/1.73 sq m using serum, plasma, or whole bOrdered By: Live Pollock on 02-25-2025 GFR/1.73 sq M.predicted among non-blacks MDRD (S/P/Bld) [Vol rate/Area] 60 mL/min/{1.73_m2} >60 [facility] Comment on above: mL/min/1.73m2 CKD-EP I Creatinine Equation (2020) Hematocrit Auto (Bld) [Volum e fraction]Ordered By: Live Pollock on 02-25-2025 Hematocrit (Bld) [Volume fraction] 41.4 % 40-54 [facility] Hemoglobin measurementOrdere d By: Live Pollock on 02-25-2025 Hemoglobin (Bld) [Mass/Vol] 14.6 g/dL 13.0-16.5 [facility] Immature granulocytes/100 WB C Auto (Bld)Ordered By: Live Pollock on 02-25-2025 Immature granulocytes/100 WBC (Bld) 0.400 % 0.0-0.9 [facility] Comment on above: IG% - Immature Granu locytes (promyelocytes, myelocytes and metamyelocytes) > 1% indicates that a LEFT SHIFT is Present. Ketones Test strip Ql (U)Ord ered By: Live Pollock on 02-25-2025 Ketones Ql (U) Negative Negative [facility] Laboratory - Chemistry and C hemistry - challengeOrdered By: Live Pollock on 02-25-2025 AST [Catalytic activity/Vol] 29 U/L <38 [facility] Lactic Acidon 02-25-2025 Lactate [Moles/Vol] mmol/L Normal 0.0-2.0 [facility] Comment on above: Performed By: #### L 503.6005 ####[facility] [address] [place], [address] Lactate [Moles/Vol] 2.0 mmol/L Normal 0.0-2.0 [facility] Comment on above: Order Comment: Y Result Comment: Crit ical Result(s) Called at: 1617 by:??MURPHY DAVENPORT Results read back by same. Performed By: #### L 500.4050, L503.6005 ####[facility] [address] [place], [address] Lactic acid measurementOrder ed By: Live Pollock on 02-25-2025 Lactate [Moles/Vol] mmol/L 0.0-2.0 [facility] Lactate [Moles/Vol] 2.0 mmol/L 0.0-2.0 [facility] Comment on above: Critical Result(s) C alled at: 1617 by: MURPHY DAVENPORT Results read back by same. MCV (mean corpuscular volume ) determinationOrdered By: Live Pollock on 02-25-2025 MCV (RBC) [Entitic vol] 79.5 fL Low 80-94 [facility] Mean corpuscular hemoglobin (MCH) determinationOrdered By: [facility] HospitalRadhaYinka on 02-25-2025 MCH (RBC) [Entitic mass] 28.0 pg 27.0-32.0 [facility] Mean corpuscular hemoglobin concentration (MCHC) determinationOrdered By: [facility] CenterisabellaAkash on 02-25-2025 MCHC (RBC) [Mass/Vol] 35.3 g/dL 32-36 [facility] Mean platelet volume determi nationOrdered By: Live Gerson on 02-25-2025 Platelet mean volume (Bld) [Entitic vol] 9.1 fL 6.2-12.0 [facility] Microscopic analysis of urin e for red blood cells (RBC)Ordered By: Live Pollock on 02-25-2025 Microscopic analysis of urine for red blood cells (RBC) 50-100 SEEN /hpf 0-5 [facility] Monocyte percentageOrdered B y: Live Pollock on 02-25-2025 Monocytes/100 WBC (Bld) 8.3 % 0-10 [facility] Mucus LM Ql (Urine sed)Order ed By: Live Pollock on 02-25-2025 Mucus Ql (Urine sed) 0 SEEN /hpf [facility] Neutrophil percentageOrdered By: Live Pollock on 02-25-2025 Neutrophils/100 WBC (Bld) 74.7 % High 47-70 [facility] Nitrite Test strip Ql (U)Ord ered By: Liev Pollock on 02-25-2025 Nitrite Ql (U) Negative Negative [facility] Nucleated red blood cell per centageOrdered By: Live Pollock on 02-25-2025 Nucleated RBC/100 WBC (Bld) [Ratio] 0 % 0-5 [facility] Platelet countOrdered By: Tiago Pollock on 02-25-2025 Platelets (Bld) [#/Vol] 242 10*3/uL 150-450 [facility] Potassium measurement (mass/ volume)Ordered By: Live Pollock on 02-25-2025 Potassium (Unsp spec) [Mass/Vol] 3.7 mmol/L 3.3-5.1 [facility] Protein Test strip Ql (U)Ord ered By: Live Pollock on 02-25-2025 Protein Ql (U) 30 mg/dl High Negative [facility] RBC Auto (Bld) [#/Vol]Ordere d By: Live Pollock on 02-25-2025 RBC (Bld) [#/Vol] 5.21 10*6/uL 4.6-6.2 [facility] Serum creatinine measurement (mass/volume)Ordered By: Live Pollock on 02-25-2025 Creatinine [Mass/Vol] 1.46 mg/dL High 0.70-1.20 [facility] Serum globulin measurementOr dered By: Live Pollock on 02-25-2025 Globulin (S) [Mass/Vol] 2.3 g/dL 2.2-4.2 [facility] Serum glucose measurement (m ass/volume)Ordered By: Live Pollock on 02-25-2025 Glucose [Mass/Vol] 101 mg/dL High 70-99 [facility] Serum or plasma alanine nascimento otransferase (ALT) measurementOrdered By: Live Plolock on 02-25-2025 ALT [Catalytic activity/Vol] 17 U/L <47 [facility] Serum or plasma albumin lillie urement (mass/volume)Ordered By: Live Honeycutt on 02-25-2025 Albumin [Mass/Vol] 3.9 g/dL 3.5-5.0 [facility] Serum or plasma albumin/glob ulin mass ratioOrdered By: [facility] HospitalYinka on 02-25-2025 Albumin/Globulin [Mass ratio] 1.7 {ratio} 0.9-2.4 [facility] Serum or plasma alkaline winter sphatase measurementOrdered By: Live Pollock on 02-25-2025 ALP [Catalytic activity/Vol] 68 U/L 40-129 [facility] Serum or plasma calcium lillie urement (mass/volume)Ordered By: Live Honeycutt on 02-25-2025 Calcium [Mass/Vol] 8.9 mg/dL 7.6-11.0 [facility] Serum or plasma urea nitroge n measurement (mass/volume)Ordered By: Live Pollock on 02-25-2025 Urea nitrogen [Mass/Vol] 13 mg/dL 4-19 [facility] Sodium levelOrdered By: Latrell Pollock on 02-25-2025 Sodium [Moles/Vol] 138 mmol/L 133-145 [facility] Squamous epithelial cells de tection in urine sediment by light microscopyOrdered By: Live Pollock on 02-25-2025 Epithelial cells.squamous LM Ql (Urine sed) 0-5 SEEN /hpf 0-5 [facility] Testicular with Arterial Eloy won 02-25-2025 Testicular with Arterial Flow [facility] Imaging Services [address] [place], [place] [address] Testicular with Arterial Flow MR#: [id number] Acct: [id number] Name: DARYL PELLETIER Rep #: [id number] : 1980 M 45 From: Janina Oconnell PCP: [facility] Status: REG ER Study: Testicular with Arterial Flow Date of Exam: Exam# [id number] Ordering Dr: Live Pollock DO PROCEDURE: TESTICULAR [...] Flow IMPRESSION: NORMAL SCROTAL ULTRASOUND. Reading Location: [facility] CC: Dr. Live Pollock DO; [facility] Grocery Cashier: Signed Normal [facility] Total proteinOrdered By: Rahat Pollock on 02-25-2025 Protein [Mass/Vol] 6.2 g/dL 5.9-8.4 [facility] Urinalysis, Completeon 02-25 EPI,SQUAMOUS 0-5 SEEN Normal 0-5 [facility] Comment on above: Order Comment: CLEAN CATCH Performed By: #### L 400.0001 ####[facility] [address] [place], [place], [id number] RBC 50-100 SEEN Normal 0-5 [facility] Comment on above: Order Comment: CLEAN CATCH Performed By: #### L 400.0001 ####[facility] [address] [place], [address] WBC 0-5 SEEN Normal 0-5 [facility] Comment on above: Order Comment: CLEAN CATCH Performed By: #### L 400.0001 ####[facility] [address] [place], [address] BACTERIA 0 SEEN Normal None Seen [facility] Comment on above: Order Comment: CLEAN CATCH Performed By: #### L 400.0001 ####[facility] [address] [place], [place], [address] Mucus Ql (Urine sed) 0 SEEN Normal [facility] Comment on above: Order Comment: CLEAN CATCH Performed By: #### L 400.0001 ####[facility] [address] [place], [place], [id number] Urine clarityOrdered By: Rahat Pollock on 02-25-2025 Clarity (U) Sl. Cloudy Clear [facility] Urine color determinationOrd ered By: Live Pollock on 02-25-2025 Color (U) Yellow Yellow [facility] Urine glucose detectionOrder ed By: Live Pollock on 02-25-2025 Glucose Ql (U) Normal mg/dl Normal [facility] Urine leukocyte esterase det ection by dipstickOrdered By: Live Pollock on 02-25-2025 Leukocyte esterase Test strip Ql (U) 25 /ul High Negative [facility] Urine pHOrdered By: Live Nieto on 02-25-2025 pH (U) 7.0 [pH] 5.0 - 8.0 [facility] Urine sediment bacteria coun t by microscopy (number/high power field)Ordered By: Live Pollock on 02-25-2025 Bacteria LM.HPF (Urine sed) [#/Area] 0 /[HPF] None Seen [facility] Urine specific gravity measu rementOrdered By: Live Pollock on 02-25-2025 Specific gravity (U) [Rel density] 1.010 1.002-1.03 0 [facility] Urine urobilinogen measureme ntOrdered By: Live Pollock on 02-25-2025 Urobilinogen Ql (U) Normal mg/dl Normal [facility] White blood cell (WBC) count Ordered By: Live MoellerCurry on 02-25-2025 WBC (Bld) [#/Vol] 13.9 10*3/uL High 4.4-11.0 [facility] White blood cell countOrdere d By: Live Phill on 02-25-2025 White blood cell count 0-5 SEEN /hpf 0-5 [facility] XR TIBIA/FIBULA 2 VIEWS LEFT on 09-21-2018 [...] By: Darrel Kincaid DOElectronically Signed By: Darrel Kincadi DO Dictated Date: 09/21/2018 9:13:31 AM Prelim Date: 09/21/2018 9:13:31 AM Sign Date: 09/21/2018 9:17:54 AM Normal [facility] ([place]) CNOVon 08-30-2018 CN Office Visit (UCWSTR) ----[facility]ARY[facility]ELLETIER ([id number]) 1980 [facility] Stbjrlchmg04/12/18 3:45 PM [facility] DODD (DONNA[facility] During your visit today, we recorded the [...] discharge coming from under the cast.Radha Dodd APRN.PRESSURE WELDER 08/30/2018 5:35 PM SignedSubjectiveHPIPatient presents with:Rib Injury: [...] for pain management, a Dr. Cuba in [place].- Encourage deep breathing and analgesics PRN- XR [...] Reviewed: Never ReviewedReason for Visit: Rib Injury [34610] Cmt: right rib pain after lifting x 2 weeksPrimary Visit Diagnosis:Rib pain on right side [R07.81]Order(s):XR RIBS/CHEST 3V AP RIB/OBLS/CXR RT [[id number]] Order #: [id number] FUTUREPrescriptions as of 08/30/2018 Sig: PROZAC ORAL [...] wet, it can be dried with a chair and couch maker. 4. Do not put pressure on any [...] improve.Follow-up and Disposition History RecordedLetter Kimberly Dodd APRN.[facility] Urgent [address] [facility] [address]Fuzu: [phone]/12/2018Jocedrick Pelletier[address] [facility] [address]Sq Whom it May Concern:This is to certify that Daryl Pelletier was seen at our office for medicalcare. Daryl may return to work on 08/31/2018.If you have any questions please feel free to call.Sincerely:Radha Dodd APRN.CNPEncounter Number: [id number] Status:Closed by RADHA DODD on 08/30/18 Normal [facility] PROGRESSon 08-30-2018 Protein mass conc HNO ID: [id number] thor: Radha Quarles (Contractor General Engineering) TayService: (none)Author Type: Nurse PractitionerType: Progress NotesFiled: [...] occur. Patient agreeable to treatment plan.Radha Dodd APRN.PRESSURE WELDER Normal [facility] Protein mass conc HNO ID: [id number] thor: Jennifer Jean-Baptiste RtService: (none)Author Type: (none)Type: Progress NotesFiled: 08/30/2018 4:32 PMNote Text: Radiology Service Progress NotePATIENT NAME: Daryl PelletierMRN: [id number] OF SERVICE: August 30, 2018TIME: 4:23 PMPATIENT IDENTITY VERIFICATION COMPLETED USING TWO (2) METHODS: Patientconfirmed name verbally and Date of .PATIENT GENDER DATA: MalePATIENT RELEVANT IMPLANT DATA REVIEWED: Not ApplicableRADIOLOGY DEPARTMENT: General X-ray: Exam(s) Completed: Rib X-Ray: RightPERIPHERAL IV DATA: Not applicableSIGNED BY: Jennifer Briscoe 2017 4:23 PM Normal [facility] XR RIB/CHST 3V AP RIB/OBL/CH ST [...] VAZQUEZ MD on Aug 30 2018 4:40PM [id number] Normal [facility] Vital Signs Date Time Vital Sign Value Performing Clinician Devan stanleygrace 02-26-2025 12:47-0400 Body temperature 97.5 [degF] [facility] 02-26-2025 12:47-0400 Diastolic blood pressure 65 mm[Hg] [facility] 02-26-2025 12:47-0400 Heart rate 82 /min [facility] 02-26-2025 12:47-0400 Respiratory rate 17 /min [facility] 02-26-2025 12:47-0400 SaO2% (BldA) [Mass fraction] 95 % [facility] 02-26-2025 12:47-0400 Systolic blood pressure 113 mm[Hg] [facility] 02-25-2025 20:06-0400 Body height 182.88 cm [facility] 02-25-2025 20:06-0400 Body mass index (BMI) [Ratio] 28.2 kg/m2 [facility] 02-25-2025 20:06-0400 Body weight 94.34 kg [facility] 02-25-2025 19:48-0400 Body temperature 98 [degF] [facility] 02-25-2025 19:48-0400 Diastolic blood pressure 92 mm[Hg] [facility] 02-25-2025 19:48-0400 Heart rate 85 /min [facility] 02-25-2025 19:48-0400 Respiratory rate 18 /min [facility] 02-25-2025 19:48-0400 SaO2% (BldA) [Mass fraction] 97 % [facility] 02-25-2025 19:48-0400 Systolic blood pressure 167 mm[Hg] [facility] 02-25-2025 14:37-0400 Body height 182.88 cm [facility] 02-25-2025 14:37-0400 Body mass index (BMI) [Ratio] 27.5 kg/m2 [facility] 02-25-2025 14:37-0400 Body weight 92.07 kg [facility] 04-06-2023 22:58-0400 Body height 182.88 cm [facility] 04-06-2023 22:58-0400 Body mass index (BMI) [Ratio] 29.2 kg/m2 [facility] 04-06-2023 22:58-0400 Body temperature 97.1 [degF] [facility] 04-06-2023 22:58-0400 Body weight 97.8 kg [facility] 04-06-2023 22:58-0400 Diastolic blood pressure 94 mm[Hg] [facility] 04-06-2023 22:58-0400 Heart rate 93 /min [facility] 04-06-2023 22:58-0400 Respiratory rate 20 /min [facility] 04-06-2023 22:58-0400 SaO2% (BldA) [Mass fraction] 98 % [facility] 04-06-2023 22:58-0400 Systolic blood pressure 134 mm[Hg] [facility] Encounters Encounter Date Encounter Type Care Provider Facility Start: 02-28-2025 ambulatory [facility] Facility:[facility] Start: 02-26-2025 End: 02-26-2025 ambulatory Korey Myers Facility:[facility] Start: 02-26-2025 End: 02-26-2025 Evaluation and management of inpatient Dr. Korey Myers MD -[facility] 3 Work Phone: Start: 02-26-2025 End: 02-26-2025 observation encounter [facility] Work Phone: Start: 02-25-2025 Evaluation and management of inpatient Dr. Korey Myers MD -[facility] 3 Work Phone: Start: 02-25-2025 observation encounter [facility] Work Phone: Start: 04-06-2023 End: 04-07-2023 Emergency department patient visit [facility] Work Phone: Start: 09-21-2018 End: 09-21-2018 Emergency department patient visit [facility] Facility:B Start: 08-30-2018 End: 09-25-2018 Patient encounter procedure RADHA Quarles (LICENSED ELECTRICIAN) [facility] Procedures Date Procedure Procedure Detail Performing Clinician Start: 02-26-2025 Insertion of stent i nto ureter [facility] Start: 02-26-2025 Fluoroscopic guidance [facility] Start: 02-26-2025 Plain X-ray abdomen [facility] Start: 02-25-2025 Urnls dip stick/tabl et reagent auto microscopy [facility] Start: 02-25-2025 Computed tomography of abdomen and pelvis with intravenous contrast [facility] Start: 02-25-2025 Estimated creatinine clearance [facility] Start: 02-25-2025 Ultrasound of scrotu m with Doppler and color flow imaging [facility] Plan of Treatment Date Care Activity Detail Author Start: 02-26-2025 Patient discharge [facility] Start: 02-26-2025 Admission procedure [facility] Start: 02-25-2025 Application of intermittent pneumatic compression device [facility] Start: 02-25-2025 Measuring intake and output [facility] Start: 02-25-2025 Following clinical pathway protocol [facility] Start: 02-25-2025 Hospital admission, emergency, from emergency room, medical nature [facility] Lactic acid measurement [facility] Patient Education ED Laceration Extremity [facility] Work Phone: Patient referral [facility] Work Phone: Payers Date Payer Category Payer Medicare [id number] 2025 Unknown [id number] 2018 Self-pay 1980 Unknown [id number] [id number] Unknown [id number] Unknown [id number] 2.16.8 [id number] Unknown [id number] 2.16.8 [id number] Social History Date Type Detail Facility Start: 04-06-2023 Tobacco smoking stat us SDIS Unknown if ever smoked [facility] Start: 1980 Sex Assigned At Male W [facility] Start: 02-25-2025 End: 02-25-2025 Tobacco smoking status NHIS Smokes tobacco daily (finding) [facility] Goals Date Patient Goal Desired Activity /State Functional Status Date Assessment Result Facility 02-26-2025 Functional status Ambulates [facility] Work Phone: Mental Status Date Assessment Result Facility 02-26-2025 Cognitive function Voice/Name [facility] Work Phone: Clinical Notes 04-06-2023 to 02-26-2025 Note Date & Type Note Facility 02-26-2025 Consult note [facility] 02-26-2025 Discharge summary [facility] 02-26-2025 Consult note Note Date/Time February 26, 2025 12:05pm [facility] Medical Records Department [address] [place] [address] Anesthesia Postop Eval I 02/26/251203 MR#: [id number] Acct: [id number] Name: DARYL PELLETIER Rep #:[id number] : 1980 45 From: Peyton [address] PCP: [facility] Status:ADM DANTE Y Race: C Location: [place] [id number] -1 Anesthesia: Postop Eval I Current Vital [...] 02/26/25 1205 <Electronically signed by Peyton Alejandra EXCELSIOR MACHINE OPERATOR> Date _ Peyton Diazigner Signature: Date CC: ~ Signed [facility] Work Phone: 1(582) 437-932706-10-2025 Discharge summary Author Korey Myers [facility] Note Date/Time February 26, 2025 2:24 pm [facility] Medical Records Department [address] [place] [address] Instructions for Home/Discharge Instructions 02/26/25 1136 MR#: [id number] Acct: [id number] Name: DARYL PELLETIER Rep #:[id number] : 1980 45 From: Korey Myers MD [facility] Status:ADM DANTE Discharge Instructions Diet Discharge [...] Up With: Korey Myers MD When: Call [phone] for an appointment Test Results: Test results from this visit will be discussed in further detail at your follow- up appointment, if applicable. Discharge Plan Admission Admit Date/Time: 02/26/25 07:23 Primary Reason for Your Visit: kidney stone Attending Provider: Korey Myers Primary Care Provider[facility] Dis[facility] Orders/Prescriptions Prescriptions: New ciprofloxacin HCl [Cipro] [...] by Korey Myers MD>Korey Myers MD CC: [facility] ~ Signed [facility] Work Phone: 1(257) 847-134806-10-2025 Consult note Author Jomar Kingston [facility] Note Date/Time February 26, 2025 10:5 5am [facility] Medical Records Department [address] [place] [address] Pre-Anesthesia Evaluation 02/26/25 1054 MR#: [id number] Acct: [id number] Name: DARYL PELLETIER Rep #:[id number] : 1980 45 From: Jomar Kingston MD PCP: [facility] Status:ADM DANTE Y Race: C Location: [place] [id number] -1 ASA Classification* ASA Classification ASA Classification: [...] stent placement. Anesthesia History Anesthesia History - attending urologist: Anesthesia History - attending urologist Hx Hospitalization Any Problems With Anesthesia No [...] take am of surgery PONV PONV - attending urologist: PONV - attending urologist Female HX of Motion Sickness HX of N/V After Surgery Non-Smoker Duration of Surgery greater than 60 minutes Number of Risk Factors PONV Score Height & Weight Height & Weight: Anesthesia: Height & Weight Height 6 ft 02/25/25 20:06 Weight: 94.347 kg 02/25/25 20:06 Body Mass Index (BMI) 28.2 02/25/25 20:06 Respiratory Assessment Respiratory Assessment - attending urologist: Respiratory Tract Infection Hx - attending urologist Hx Respiratory Tract Infection No 02/25/25 20:16 STOP Sleep Apnea STOP Sleep Apnea - attending urologist: STOP Sleep Apnea - attending urologist Hx Hypertension No 02/25/25 20:06 Hx Sleep [...] Tobacco Use History Tobacco Use History - attending urologist: Tobacco Use History - attending urologist Tobacco Use Smoking Status Current every day smoker 02/25/25 20:06 Hx Tobacco Use No 02/25/25 20:06 Years Smoking Packs Smoked per Day 1 02/25/25 20:06 Smoking Cessation Date was within the last 15 years Hx Smoking Cessation Date Hx Smoking Cessation No 02/25/25 20:06 Counseling Hematologic Medial History Hematologic Hx - attending urologist: 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 Hx of Blood Transfusion No 02/25/25 20:06 [...] confused, unrespo /Reproduction History /Reproductive History - attending urologist: /Reproductive Hx- attending urologist Hx Now No 02/25/25 20:16 Gestational Age (in weeks): EDC: Hx Hx Para Hx Section SAB No 02/25/25 20:16 Active Medications Active Medications: Current Medications Generic Name Dose Route Start Last Admin Trade Name Freq PRN Reason Stop Dose Admin Sodium Chloride 250 mls @ 15 mls/hr 02/25/25 20:01 IV .[id number] PRN Saline Flush Sodium Chloride 250 mls @ 15 mls/hr 02/25/25 20:01 IV .[id number] PRN Additional IVPB Infusion Sodium Chloride 1,000 [...] MD Cosigner Signature: Date CC: ~ Signed [facility] Work Phone: 1(452) 574-992006-10-2025 Consult note [facility] Medical Records Department [address] [place] [address] Anesthesia Postop Eval I 02/26/25 1204 MR#: [id number] Acct: [id number] Name: DARYL PELLETIER Rep #:[id number] : 1980 45 From: [address]eyton L[address] PCP: [facility] Status:ADM DANTE Y Race: C Location: [place] [address] Anesthesia: Postop Eval I Current Vital Signs [...] Postop Eval 1 completed: Yes 02/26/25 1205 EXCELSIOR MACHINE OPERATOR> Date _ Peyton Alejandra EXCELSIOR MACHINE OPERATOR Cosigner Signature: Date CC: ~ Signed [facility]06-10-2025 Procedure note [facility] Medical Records Department [address] [place] [address] Operative Report 02/26/25 1138 MR#: [id number] Acct: [id number] Name: LEONARDO PELLETIERNATHAN Alfonso Rep #:[id number] : 1980 45 From: Korey Myers MD PCP: [facility] Status:ADM DANTE Location: [place] [address] Operative Report (Standard) Operative Information Date of Procedure: 02/26/25 Pre-Operative Diagnosis: Obstructing stone in the left mid ureter Post-Operative Diagnosis: The same Surgery/Procedure Performed: Cystoscopy left stent placement pumper brewery: No Type of Anesthesia: General RN Documented [...] in usual fashion with about a 21 Algerian rigid cystourethroscope cannulated the left ureter with [...] (if applicable): CC: Dr. Korey Myers MD; [facility]~ Signed [facility]06-10-2025 Consult note [facility] Medical Records Department [address] [place] [address] Pre-Anesthesia Evaluation 02/26/25 1054 MR#: [id number] Acct: [id number] Name: DARYL PELLETIER Rep #:[id number] : 1980 45 From: Jomar Kingston MD PCP: [facility] Status:ADM DANTE Y Race: C Location: [facility] MS325 -1 ASA Classification* ASA Classification ASA [...] stent placement. Anesthesia History Anesthesia History - attending urologist: Anesthesia History - attending urologist Hx Hospitalization Any Problems With Anesthesia No [...] take am of surgery PONV PONV - attending urologist: PONV - attending urologist Female HX of Motion Sickness HX of N/V After Surgery Non-Smoker Duration of Surgery greater than 60 minutes Number of Risk Factors PONV Score Height & Weight Height & Weight: Anesthesia: Height & Weight Height 6 ft 02/25/25 20:06 Weight: 94.347 kg 02/25/25 20:06 Body Mass Index (BMI) 28.2 02/25/25 20:06 Respiratory Assessment Respiratory Assessment - attending urologist: Respiratory Tract Infection Hx - attending urologist Hx Respiratory Tract Infection No 02/25/25 20:16 STOP Sleep Apnea STOP Sleep Apnea - attending urologist: STOP Sleep Apnea - attending urologist Hx Hypertension No 02/25/25 20:06 Hx Sleep [...] Tobacco Use History Tobacco Use History - attending urologist: Tobacco Use History - attending urologist Tobacco Use Smoking Status Current every day smoker 02/25/25 20:06 Hx Tobacco Use No 02/25/25 20:06 Years Smoking Packs Smoked per Day 1 02/25/25 20:06 Smoking Cessation Date was within the last 15 years Hx Smoking Cessation Date Hx Smoking Cessation No 02/25/25 20:06 Counseling Hematologic Medial History Hematologic Hx - attending urologist: 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 Hx of Blood Transfusion No 02/25/25 20:06 [...] confused, unrespo /Reproduction History /Reproductive History - attending urologist: /Reproductive Hx- attending urologist Hx Now No 02/25/25 20:16 Gestational Age (in weeks): EDC: Hx Hx Para Hx Section SAB No 02/25/25 20:16 Active Medications Active Medications: Current Medications Generic Name Dose Route Start Last Admin Trade Name Freq PRN Reason Stop Dose Admin Sodium Chloride 250 mls @ 15 mls/hr 02/25/25 20:01 IV .[id number] PRN Saline Flush Sodium Chloride 250 mls @ 15 mls/hr 02/25/25 20:01 IV .[id number] PRN Additional IVPB Infusion Sodium Chloride 1,000 [...] MD Cosigner Signature: Date CC: ~ Signed [facility]06-10-2025 History and physical note Author Korey Myers [facility] Note Date/Time February 26, 2025 7:39 am [facility] Medical Records Department [address] [place] [address] History & Physical Exam 02/26/25 0738 MR#: [id number] Acct: [id number] Name: DARYL PELLETIER Rep #:[id number] : 1980 45 From: Korey Myers MD [facility] Status:ADM DANTE Location: [facility] AQ616-9 HPI - General General Date of Admission: [...] for shockwave lithotripsy the machine is available. [facility] Medical History Bipolar disorder Anxiety Depression Kidney [...] 74.7 H, Lymph % (Auto) 15.3 L, Crisp % (Auto) 8.3, Eos % (Auto) 1.0, [...] Sl. Cloudy, Urine pH 7.0, Ur Specific [place] 1.010, Urine Protein 30 H, Urine Glucose [...] 15:10 IMPRESSION: NORMAL SCROTAL ULTRASOUND. Reading Location: [facility] Abdomen/Pelvis CT 02/25/25 15:40 IMPRESSION: Obstructing stone within the left mid-distal ureter at the ureteropelvic junction with mild left hydroureteronephrosis and delayed nephrogram. Reading Location: [facility] Assessment & Plan Assessment/Plan (1) Left ureteral calculus: PLAN: admit for pain control plan for cystoscopy left stent placement today 02/26/25 0739 <Electronically signed by Korey Myers MD> Cosigner Signature (if applicable): CC: Dr. Korey Myers MD; [facility]~ Signed [facility] Work Phone: 1(927) 367-795606-10-2025 Evaluation note* Diagnosis Onset Date Resolution Status Admit Date Left ureteral calculus acute Ju ca 2024 7:23am [facility] Work Phone: 1(623) 279-538006-10-2025 Radiology Diagnostic study note [facility] Imaging Services [address] [place] [address] Abdomen Single View MR#: [id number] Acct: [id number] Name: DARYL PELLETIER Rep #: [id number] : 1980 M 45 From: Yvonne Pitt MD [facility] Status: ADM DANTE Study:Abdomen Single View Date of Exam: 02/26/25 Exam# [id number] Ordering Dr: Josue Myers MD EXAM: XR [...] renal calculi. No obvious nephrolithiasis. Reading Location: [facility] CC: Dr. Korey Myers MD; [facility] ~ Grocery Cashier: Signed [facility]06-10-2025 History and physical note [facility] Medical Records Department [address] [place] [address] History & Physical Exam 02/26/25 0738 MR#: [id number] Acct: [id number] Name: DARYL PELLETIER Rep #:[id number] : 1980 45 From: Korey Myers MD PCP: [facility] Status:ADM DANTE Location: [facility] HY996-9 HPI - General General Date of Admission: [...] for shockwave lithotripsy the machine is available. [facility] [facility] Medical History Bipolar disorder Anxiety Depression Kidney [...] 74.7 H, Lymph % (Auto) 15.3 L, Crisp % (Auto) 8.3, Eos % (Auto) 1.0, [...] Sl. Cloudy, Urine pH 7.0, Ur Specific [place] 1.010, Urine Protein 30 H, Urine Glucose [...] 15:10 IMPRESSION: NORMAL SCROTAL ULTRASOUND. Reading Location: [facility] Abdomen/Pelvis CT 02/25/25 15:40 IMPRESSION: Obstructing stone within the left mid-distal ureter at the ureteropelvic junction with mild left hydroureteronephrosis and delayed nephrogram. Reading Location: [facility] Assessment & Plan Assessment/Plan (1) Left ureteral calculus: PLAN: admit for pain control plan for cystoscopy left stent placement today 02/26/25 0739 Cosigner Signature (if applicable): CC: Dr. Korey Myers MD; [facility]~ Signed [facility]06-10-2025 [facility] Medical Records Department [address] [place] [address] History Physical Exam 02/26/25 0738 MR#: [id number] Acct: [id number] Name: DARYL PELLETIER Rep #: [id number] : 1980 45 From: Korey Myers MD PCP: [facility] Status:ADM DANTE Location: PR3 [id number] HPI - General General Date of Admission: [...] for shockwave lithotripsy the machine is available. [facility], [facility] Medical History Bipolar disorder Anxiety Depression Kidney [...] normal to inspection, nondistended, (more content not included)...[facility]06-09-2025 Discharge summary Author Live Pollock [facility] Note Date/Time February 25, 2025 7:31p m [facility] Medical Records Department [address] [place] [address] Emergency Department Summary 02/25/25 MR#: [id number] Acct: [id number] Name: DARYL PELLETIER Rep #:[id number] : 1980 45 From: Live mitchell DO PCP: [facility] Status:REG ER Location: ED ADDENDUM by Dr. [...] Pederson DO> Cosigner Signature (if applicable): cc: [facility] ~* Signed HPI History of Present Illness [...] intact Psych: Cooperative, appropriate [facility] PTSD (post-traumatic stress disorder) [...] 74.7 H Lymph % (Auto) 15.3 L Crisp % (Auto) 8.3 Eos % (Auto) 1.0 [...] 15:10 IMPRESSION: NORMAL SCROTAL ULTRASOUND. Reading Location: [facility] Abdomen/Pelvis CT 02/25/25 15:40 IMPRESSION: Obstructing stone within the left mid-distal ureter at the ureteropelvic junction with mild left hydroureteronephrosis and delayed nephrogram. Reading Location: [id number] Discharge Plan Triage Chief Complaint: Male Pain/Injury ED Provider: Live Pollock Dx/Rx/DC Orders Prescriptions: No Action NK [facility] Referrals: [facility] [Primary Care Provider] - Print Language: Sammarinese What to do if you have Problems For any increased pain, shortness of breath, bleeding, nausea or vomiting, chestpain, or any unexpected problems, contact your Primary Care Provider. Call [facility] ([phone]) or report to the closest Emergency Room. Call 911 if necessary. 02/25/25 1642 <Electronically signed by Live Pollock DO> Cosigner Signature (if applicable): CC: [facility] ~ Signed [facility] Work Phone: 1(668) 188-882106-09-2025 Discharge summary [facility] Medical Records Department [address] [place] [address] Emergency Department Summary 02/25/25 MR#: [id number] Acct: [id number] Name: DARYL PELLETIER Rep #:[id number] : 1980 45 From: Live mitchell DO PCP: [facility] Status:REG ER Location: ED ADDENDUM by Dr. [...] creatinine 02/25/251930 Cosigner Signature (if applicable): cc: [facility] ~* Signed HPI History of Present Illness [...] intact Psych: Cooperative, appropriate mood [facility] History PTSD (post-traumatic stress disorder) [...] 74.7 H Lymph % (Auto) 15.3 L Crisp % (Auto) 8.3 Eos % (Auto) 1.0 [...] 15:10 IMPRESSION: NORMAL SCROTAL ULTRASOUND. Reading Location: [id number] Abdomen/Pelvis CT 02/25/25 15:40 IMPRESSION: Obstructing stone within the left mid-distal ureter at the ureteropelvic junction with mild left hydroureteronephrosis and delayed nephrogram. Reading Location: [facility] Discharge Plan Triage Chief Complaint: Male Pain/Injury ED Provider: Live Pollock Dx/Rx/DC Orders Prescriptions: No Action NK Primary Care Provider: [facility] Referrals: [facility] [Primary Care Provider] - Print Language: Sammarinese What to do if you have Problems For any increased pain, shortness of breath, bleeding, nausea or vomiting, chestpain, or any unexpected problems, contact your Primary Care Provider. Call [facility] ([phone]) or report tothe closest Emergency Room. Call 911 if necessary. 02/25/25 1642 Cosigner Signature (if applicable): CC: [facility] ~ Signed [facility]06-09-2025 Radiology Diagnostic study note [facility] Imaging Services [address] [place] [address] Testicular with Arterial Flow MR#: [id number] Acct: [id number] Name: DARYL PELLETIER Rep #: [id number] : 1980 M 45 From: Tracy Canchola MD PCP: [facility] Status: REG ER Study:Testicular with Arterial Flow Date of E xam: 02/25/25 Exam# [id number] Ordering Dr: Live Peterson DO PROCEDURE: TESTICULAR WITH ARTERIAL FLOW 02/25/2025 REASON FOR EXAM: LEFT TESTICLE PAIN TECHNIQUE: Irvera scale imaging of the scrotal contents. COMPARISON: [...] Flow IMPRESSION: NORMAL SCROTAL ULTRASOUND. Reading Location: [id number] CC: Dr. Live Pollock, ; [facility] ~ Grocery Cashier: Signed [facility]06-09-2025 Radiology Diagnostic study note [facility] Imaging Services [address] [place], [place] [address] Abdomen/Pelvis W IV Cont ONLY MR#: [id number] Acct: [id number] Name: DARYL PELLETIER Rep #: [id number] : 1980 M 45 From: Yael Machado MD PCP: [facility] Status: REG ER Study:Abdomen/Pelvis W IV Cont ONLY Date of E xam: 02/25/25 Exam# [id number] Ordering Dr: Live Peterson DO PROCEDURE: ABDOMEN/PELVIS [...] left hydroureteronephrosis and delayed nephrogram. Reading Location: [id number] CC: Dr. Live Pollock DO; [facility] ~ Grocery Cashier: Signed [facility]06-09-2025 Discharge summary Author Live Pollock [facility] Note Date/Time February 25, 2025 7:31p m [facility] Medical Records Department [address] [place] [address] Emergency Department Summary 02/25/25 MR#: [id number] Acct: [id number] Name: DARYL PELLETIER Rep #:[id number] : 1980 45 From: Live mitchell DO PCP: [facility] Status:REG ER Location: ED ADDENDUM by Dr. [...] Pederson DO> Cosigner Signature (if applicable): cc: [facility] ~* Signed HPI History of Present Illness [...] intact Psych: Cooperative, appropriate mood [facility] History PTSD (post-traumatic stress disorder) [...] 74.7 H Lymph % (Auto) 15.3 L Crisp % (Auto) 8.3 Eos % (Auto) 1.0 [...] 15:10 IMPRESSION: NORMAL SCROTAL ULTRASOUND. Reading Location: [facility] Abdomen/Pelvis CT 02/25/25 15:40 IMPRESSION: Obstructing stone within the left mid-distal ureter at the ureteropelvic junction with mild left hydroureteronephrosis and delayed nephrogram. Reading Location: [facility] Discharge Plan Triage Chief Complaint: Male Pain/Injury ED Provider: Live Pollock Dx/Rx/DC Orders Prescriptions: No Action NK Primary Care Provider: [facility] Referrals: [facility] [Primary Care Provider] - Print Language: Sammarinese What to do if you have Problems For any increased pain, shortness of breath, bleeding, nausea or vomiting, chestpain, or any unexpected problems, contact your Primary Care Provider. Call [facility] ([phone]) or report to the closest Emergency Room. Call 911 if necessary. 02/25/25 1642 <Electronically signed by Live Pollock DO> Cosigner Signature (if applicable): CC: [facility] ~ Signed [facility] Work Phone: 1(851) 576-240207-19-2023 Discharge summary Author Demetris Tatum [facility] April 07, 2023 12:22am Note Date/Time April 06, 2023 11:1 1pm [facility] Medical Records Department [address] [place] [address] Emergency Department Summary 04/06/23 MR#: [id number] Acct: [id number] Name: PRABHUDARYL W Rep #:[id number] : 1980 43 From: Demetris Tatum MD PCP: [facility] Status:REG ER Location: ED HPI History of [...] is controlled now. Tetanus Immunization: <5 years [facility] Medical History PTSD (post-traumatic stress disorder) [...] and Skinsutures Irrigated (ml): 80 Number of Sutures/[place]: 1 Suture Information: Ethilon, Horizontal, Mattress and [...] 20 mg PO DAILY Primary Care Provider: [facility] Referrals: Doctor,Your [Non-Staff] - 10 Day for suture removal (or urgent care/ER) Disposition Disposition: Home, Self Care What to do if you have Problems For any increased pain, shortness of breath, bleeding, nausea or vomiting, chestpain, or any unexpected problems, contact your Primary Care Provider. Call [facility] ([phone]) or report to the closest Emergency Room. Call 911 if necessary. 04/07/23 0022 <Electronically signed by Demetris Tatum MD> Cosigner Signature (if applicable): CC: [facility] ~ Signed [facility] Work Phone: Consult note Author Jomar Kingston [facility] Note Date/Time February 26, 2025 2:24 pm [facility] Medical Records Department [address] [place] [address] Anesthesia Postop Eval II 02/26/25 1254 MR#: [id number] Acct: [id number] Name: DARYL PELLETIER Rep #:[id number] : 1980 45 From: Jomar Kingston MD PCP: [facility] Status:ADM DANTE Y Race: C Location: [place] [id number] Anesthesia Postop Eval I Sum Postop Eval Completion status Anesthesia document: Postop Eval 1 completed: Yes Anesthesia Postop Eval I Summary Anesthesia Postop Eval I Summary: Anesthesia Postop Eval I: Assessment Summary Airway patent Yes 02/26/25 12:05 EXCELSIOR MACHINE OPERATOR.GDOTT Spontaneous unlabored Yes 02/26/25 12:05 EXCELSIOR MACHINE OPERATOR.GDOTT respirations Mental status Awake,Calm 02/26/25 12:05 EXCELSIOR MACHINE OPERATOR.GDOTT nausea No 02/26/25 12:05 EXCELSIOR MACHINE OPERATOR.GDOTT Vomiting No 02/26/25 12:05 EXCELSIOR MACHINE OPERATOR.GDOTT Anesthesia Postop Eval I: Fluid Summary Crystalloid volume administer 200 02/26/25 12:05 EXCELSIOR MACHINE OPERATOR.GDOTT (ml) Colloids volume administered ( ml) Blood Product volume administered (ml) Total IV fluid infused 200 02/26/25 12:05 EXCELSIOR MACHINE OPERATOR.GDOTT Anesthesia Postop Eval I: Summary Notes Anesthesia Complication No 02/26/25 12:05 EXCELSIOR MACHINE OPERATOR.GDOTT Anesthesia Complication Comment: Post-operative progress note Anesthesia: Postop Eval II Evaluation Mental status: Awake Pain Level: 0 nausea: No Vomiting: No 02/26/25 1254 <Electronically signed by Jomar Kingston MD > Date _ Jomar Kingston MD [facility] Signature: Date CC: ~ Signed [facility] Work Phone: Evaluation noteNo assessment information available [facility] Work Phone: Reason for referral (narrative)No reason for referral information availableWAvita [facility] Work Phone: Summary Purpose Family History No Family History Records FoundNo Family History Records FoundNo Family History Records Found Advance Directives No Advanced Directives Records Found Advance Directive Response Recorded Date/ Time Living Will Yes April 06, 2023 10:59pm Power of Supercalender Operator Yes April 06 10:59pm Name of Medical Power of Supercalender Operator Stacey Pelletier April 06, 2023 10:59pm Advance Directive Response Recorded Date/ Time Do you have a Healthcare Power of Supercalender Operator? No February 25, 2025 3:03pm Advance Directive Response Recorded Date/ Time Do you have a Healthcare Power of Supercalender Operator? Yes February 25, 2025 8:06pm Chief [...] and content) DATE CREATED AUTHOR 09/21/2018 [facility] ([place]) DATE CREATED AUTHOR AUTHOR'S ORGANIZ ATION 09/25/2018 [facility] DATE CREATED AUTHOR AUTHOR'S ORGANIZ ATION 04/28/2025 [facility] Care Teams (unrecognized sec tion and content) Team Status: Active Member Role Status Dates [facility] Primary Care Provider Active Team Status: Inactive Member Role Status Dates [facility] Primary Care Provider Active Start: February 26, [...] Team Status: Active Member Role Status Dates [facility] Primary Care Provider Active Start: February 25, [...] Dr. Demetris Tatum MD Emergency Provider Active [facility] Primary Care Provider Active Goals (unrecognized [...] BE BASED ON THE PRIMARY CLINICAL RECORDS. [employer] provides no warranty or guarantee of the accuracy or completeness of information in this document.
[2025-05-11 21:25] LABS: Alcohol, Blood (Medical)-Serum < 10.1 mg/dL (<=10.0)
[2025-05-11 21:29] VITALS: BP 140/59; PULSE 117; RESP 18; TEMP 39.5; O2SAT 97; BMI 26.1
[2025-05-11 21:35] LABS: Barbiturate Urine NEGATIVE (< 200 ng/mL); Benzodiazepine Urine NEGATIVE (< 200 ng/mL); PCP Urine NEGATIVE (< 25 ng/mL); THC Urine NEGATIVE (< 50 ng/mL)
[2025-05-11 21:38] LABS: Reflex Lactate? Y
[2025-05-11 22:50] VITALS: TEMP 36.8
[2025-05-11] MEDS: 0.9% Normal Saline (1000mL) 1,000 ML 100 ML IV (23:15)
[2025-05-12 04:00] VITALS: BP 125/64; PULSE 107; RESP 16; TEMP 37.7; O2SAT 97
[2025-05-12 05:58] LABS: Hematocrit 40.0 % (40-54); Hemoglobin 13.3 g/dL (13.0-16.5); Immature Granulocytes Count 0.060 X10^3/uL (0.0-0.0); Mean Corp Hgb Conc 33.3 g/dL (32-36); Mean Corpuscular Volume 83.9 fL (80-94); Mean Platelet Vol. 8.9 fl (6.2-12.0); NRBC Flagged by Analyzer 0 % (0-5); POSITIVE DIFFERENTIAL YES; Platelet Count 509 K/mm3 (150-450); RBC Distribution Width CV 12.7 % (11.6-14.6); RBC Distribution Width SD 38.7 fl (35.1-43.9); Red Blood Count 4.77 M/mm3 (4.6-6.2); White Blood Count 14.5 K/mm3 (4.4-11.0)
[2025-05-12 06:00] VITALS: BMI 26.0
--- NOTE | 2025-05-12 06:00 | EKG12_ITS ---
Test Reason : ROUTINE Blood Pressure : */* mmHG Vent. Rate : 104 BPM Atrial Rate : 104 BPM P-R Int : 128 ms QRS Dur : 102 ms QT Int : 314 ms P-R-T Axes : 71 45 54 degrees QTcB Int : 412 ms Sinus tachycardia Otherwise normal ECG When compared with ECG of 02-Sep-2022 18:30, No significant change was found Confirmed by ALEXANDRIA KATE, MATTHIAS ([id number]), script editor MARSHALL KOHLER ([id number]) on 05/13/2025 1:00:06 PM Referred By: CHRISTINA Confirmed By: MATTHIAS IBRAHIM MD
[2025-05-12 06:12] LABS: Differential Indicated SCAN CRITERIA MET
[2025-05-12 06:58] LABS: AST(SGOT) 21 U/L (<=37); Alanine Aminotransfer ALT/SGPT 19 U/L (<=46); Albumin, Serum 3.1 g/dL (3.5-5.0); Alkaline Phosphatase 98 U/L (40-129); Anion Gap 14 (5-15); BUN 12 mg/dL (4-19); BUN/Creat Ratio 10.3 RATIO (10-20); Calcium,Total 8.4 mg/dL (7.6-11.0); Carbon Dioxide 21.2 mmol/L (21.0-32.0); Chloride 99 mmol/L (98-108); Estimated Creatinine Clearance 86.95 ml/min (50-250); Globulin 3.7 g/dL (2.2-4.2); Glucose 94 mg/dL (70-99); Potassium 4.4 mmol/L (3.3-5.1)
[2025-05-12 07:04] LABS: Differential Comment SCANNED; Red Cell Morphology NORM C+C NORMAL (NORM C&C)
[2025-05-12 07:05] VITALS: O2SAT 98
--- NOTE | 2025-05-12 07:14 | PCM.PN.HOSP ---
Reason for Visit Chief Complaint: Hematuria, L flank pain. Subjective Subjective Patient is a 45-year-old gentleman with a history of nephrolithiasis with previous ureteral stent placement who presented to the emergency department with persistent left flank pain and hematuria Objective Data Objective Data Vital Signs: Vital Signs Temp Pulse Resp BP Pulse Ox O2 Del Method 99.8 F H 107 H 16 125/64 H 97 Room Air 05/12/25 04:00 05/12/25 04:00 05/12/25 04:00 05/12/25 04:00 05/12/25 04:00 05/12/25 04:00 Oxygen Delivery Method Room Air Weight: 87.3 kg Body Mass Index (BMI) 26.0 Intake & Output: Intake and Output for Last 24 Hours 05/10/25 05/11/25 05/12/25 23:59 23:59 23:59 Intake Total 2109 0 / 0 Balance 2109 0 / 0 Lab / Micro Data 05/12/25 05:26 05/12/25 05:26 Labs: Laboratory Results - last 24 hr 05/11/25 17:17: WBC 15.7 H, RBC 4.87, Hgb 13.6, Hct 40.0, MCV 82.1, MCH 27.9, MCHC 34.0, RDW Std Deviation 38.0, RDW Coeff of Tom 12.6, Plt Count 518 H, MPV 8.5, Immature Gran % (Auto) 0.500, Neut % (Auto) 79.9 H, Lymph % (Auto) 6.2 L, Ray % (Auto) 13.2 H, Eos % (Auto) 0.1, Baso % (Auto) 0.1, Absolute Neuts (auto) 12.5 H, Absolute Lymphs (auto) 0.98, Nucleated RBC % 0, Differential Comment SCANNED, Platelet Estimate MOD INC, Sodium 130 L, Potassium 3.9, Chloride 91 L, Carbon Dioxide 24.7, Anion Gap 15, BUN 10, Creatinine 1.20, Estim Creat Clear Calc 86.22, Est GFR (MDRD) Non-Af 76, BUN/Creatinine Ratio 8.7 L, Glucose 161 H, Calcium 9.1 05/11/25 17:25: Lactic Acid 2.3 H* 05/11/25 18:22: Urine Color Earlene, Urine Clarity Turbid, Urine pH 6.0, Ur Specific [place] 1.020, Urine Protein 100 H, Urine Glucose (UA) 50 H, Urine Ketones 5 H, Urine Occult Blood 250 H, Urine Nitrite Positive H, Urine Bilirubin 1 H, Urine Urobilinogen 8 H, Ur Leukocyte Esterase 100 H, Urine RBC > 100 SEEN, Urine WBC 25-50 SEEN, Ur Squamous Epith Cells 10-25 SEEN, Urine Bacteria 3+, Urine Mucus 0 SEEN, Urine Opiates Screen NEGATIVE, U Buprenorphine Qual NEGATIVE, Ur Oxycodone Screen NEGATIVE, Urine Methadone Screen NEGATIVE, Urine Fentanyl Screen NEGATIVE, Ur Barbiturates Screen NEGATIVE, Ur Phencyclidine Scrn NEGATIVE, Ur Amphetamines Screen PRESUMPTIVE POSITIVE, U Benzodiazepines Scrn NEGATIVE, Urine Cocaine Screen NEGATIVE, U Cannabinoids Screen NEGATIVE 05/11/25 20:54: Ethyl Alcohol < 10.1 05/11/25 22:10: Lactic Acid 1.0 05/12/25 05:26: WBC 14.5 H, RBC 4.77, Hgb 13.3, Hct 40.0, MCV 83.9, MCH 27.9, MCHC 33.3, RDW Std Deviation 38.7, RDW Coeff of Tom 12.7, Plt Count 509 H, MPV 8.9, Immature Gran % (Auto) 0.400, Neut % (Auto) 72.6 H, Lymph % (Auto) 10.5 L, Ray % (Auto) 16.1 H, Eos % (Auto) 0.3, Baso % (Auto) 0.1, Absolute Neuts (auto) 10.6 H, Absolute Lymphs (auto) 1.52, Nucleated RBC % 0, Differential Comment SCANNED, Platelet Estimate MOD INC, RBC Morphology NORM C+C, Sodium 134, Potassium 4.4, Chloride 99, Carbon Dioxide 21.2, Anion Gap 14, BUN 12, Creatinine 1.19, Estim Creat Clear Calc 86.95, Est GFR (MDRD) Non-Af 77, BUN/Creatinine Ratio 10.3, Glucose 94, Hemoglobin A1c 5.5, Calcium 8.4, Total Bilirubin 0.51 05/12/25 05:26: Total Bilirubin Cancelled, AST 21 05/12/25 05:26: AST Cancelled, ALT 19 05/12/25 05:26: ALT Cancelled, Alkaline Phosphatase 98 05/12/25 05:26: Alkaline Phosphatase Cancelled, Total Protein 6.7 05/12/25 05:26: Total Protein Cancelled, Albumin 3.1 L 05/12/25 05:26: Albumin Cancelled, Globulin 3.7 05/12/25 05:26: Globulin Cancelled, Albumin/Globulin Ratio 0.8 L Radiography Diagnostic Testing: Radiology Impression Abdomen/Pelvis CT 05/11/25 16:59 IMPRESSION: Improvement in hydronephrosis status post stent placement. Ureteral stone is still suspected to remain present Reading Location: [facility] Physical Exam Narrative GENERAL: cooperative HEENT: Atraumatic; normocephalic, poor oral dentition EYES; Anicteric, Normal Conjunctiva NECK; supple, normal thyroid, RESPIRATORY: Diminished to auscultation CARDIOVASCULAR: Regular S1 S2, GI: soft, normoactive bowel sounds, : No Renal angle tenderness; EXTREMITIES: No edema, no clubbing, MUSCULOSKELETAL: no muscle wasting NEURO: Awake; no lateralizing signs. SKIN: No Rash PSYCH; Flat affect Assessment & Plan Assessment/Plan (1) Urinary tract infection: PLAN: Plan Patient is a 45-year-old gentleman with a history of nephrolithiasis with previous ureteral stent placement who presented to the emergency department with persistent left flank pain and hematuria 1. Acute complicated urinary tract infection ? Admitted to regular nursing floor started on ceftriaxone urine culture sent 2. Nephrolithiasis ? With previous left ureteral stent placement by Dr Myers. Imaging studies obtained on admission did show Improvement in hydronephrosis status post stent placement. Ureteral stone is still suspected to remain present 3. Hyponatremia Secondary to hypovolemic hyponatremia sodium level did improve with hydration started following his admission 4. Tobacco dependence ? Counseled on cessation, offered nicotine patch for tobacco cravings 5. DVT prophylaxis ? Will encourage early ambulation Time spent in the patient's overall evaluation,decision-making process, review of diagnostic data, adjustment of management, discussion with other providers, nursing nursing and ancillary staff involved in patient's care documentation, 36 Minutes Charges/Coding Visit Charges Inpatient E&M: 07261 Subs Hosp L2
[2025-05-12 07:20] LABS: Prothrombin Time (Protime)PT. 14.2 SECONDS (11.7-14.9)
[2025-05-12 07:38] LABS: Bilirubin, Direct 0.25 mg/dL (0.00-0.30)
[2025-05-12 08:27] VITALS: BP 92/53; PULSE 82; RESP 16; TEMP 36.8; O2SAT 98
[2025-05-12 08:37] VITALS: BP 95/63; PULSE 82
[2025-05-12] MEDS: 0.9% Normal Saline (500mL Bag) 500 ML 999 ML IV (09:32)
[2025-05-12] MEDS: Nicotine (PBKC) 21 MG Patch TD (09:33)
--- NOTE | 2025-05-12 10:01 | CON.PCM_ITS ---
Assessment & Plan Assessment/Plan (1) Ureteral stent present: PLAN: Plan for ureteroscopy left laser of stone and new stent. (2) Lactic acidosis: (3) Urinary tract infection: (4) Left ureteral calculus: HPI Consult Data Date of Consult: 05/12/25 HPI Narrative HPI Narrative: DARYL PELLETIER, is a 45 male patient who has insurance through the [facility] he is a , I put a stent in for obstructing stone in February and I had set him up for surgery but [facility] would not [facility]ter surgery and was told that he needs to follow-up with the [facility] to have the stone treated they gave him an appointment 2 months out he may then missed his appointment with the [facility]. So he is not scheduled to have anything done to treat the stone at the [facility] probably because of the significant delay in his missing appointments. He now presents back to the hospital he has a fever yesterday looks like he might have an infection CAT scan was done he still has a stone in the mid ureter still has a stent that I put in about 2 months ago. I think we need to have resolution of the problem so our plan to take him to surgery tomorrow to laser the stone and remove the stent, or put a stent in with a string and have them pull the stent out himself or come my office to get the stent removed either way I think further delaying his care by the [facility] or by me is can be detrimental to his health second proceed with laser lithotripsy tomorrow and possible stent. FORMERLY [facility], [facility] Medical History Loss of hearing Arthritis Narcolepsy Restless legs Injury of head and neck Gastric reflux History of Borjas's esophagus History of edema History of stress test Hypertension History of electroconvulsive therapy Hx of fracture of ankle History of fracture of tibia Bipolar disorder Anxiety Depression Smoker Migraines PTSD (post-traumatic stress disorder) Home Medications ?Medication ?Instructions ?Recorded ?Last Taken ?Type NK 05/11/25 Unknown History Allergy/AdvReac Type Severity Reaction Status Date / Time Penicillins Allergy PT UNSURE Verified 05/11/25 16:33 OF REACTION Family History Mother , secondary to sepsis following bladder-mesh surgery per patient report. No problems noted. Father CAD (coronary artery disease) Heart disease Hypertension Myocardial infarction Surgical History History of esophagogastroduodenoscopy (EGD) History of cystoscopy Hx of sinus surgery Social History household members: none Smoking Status: Current every day smoker tobacco type: cigarettes Smoking packs per day: 1 Smoking cigarettes per day: 20.0 alcohol intake: former details: Sober x 2 years. substance use type: former substance user Date of last use: Clean x 6 months, primarily methamphetamine use prior. Physical Exam Const alert and oriented x3 General Appearance: cooperative HEENT normocephalic and head/scalp atraumatic Eyes PERRL and EOMs intact bilaterally Neck supple, no JVD and no carotid bruits Resp normal respiratory effort, normal air movement and clear to auscultation bilaterally Cardio regular rate and no murmurs GI normal to inspection, nondistended, normoactive bowel sounds and soft to palpation Extremity normal capillary refill General Extremity: no tenderness to palpation of joints or extremities; Negative for edema Skin no rashes or lesions noted and no wounds General Skin Exam: no breakdown Neuro CN's II-XII intact bilaterally Psych affect normal Appearance: appropriate Lab / Micro Data 05/12/25 05:26 05/12/25 05:26 Labs: Laboratory Results - last 24 hr 05/11/25 17:17: WBC 15.7 H, RBC 4.87, Hgb 13.6, Hct 40.0, MCV 82.1, MCH 27.9, MCHC 34.0, RDW Std Deviation 38.0, RDW Coeff of Tom 12.6, Plt Count 518 H, MPV 8.5, Immature Gran % (Auto) 0.500, Neut % (Auto) 79.9 H, Lymph % (Auto) 6.2 L, M mayo % (Auto) 13.2 H, Eos % (Auto) 0.1, Baso % (Auto) 0.1, Absolute Neuts (auto) 12.5 H, Absolute Lymphs (auto) 0.98, Nucleated RBC % 0, Differential Comment SCANNED, Platelet Estimate MOD INC, Sodium 130 L, Potassium 3.9, Chloride 91 L, Carbon Dioxide 24.7, Anion Gap 15, BUN 10, Creatinine 1.20, Estim Creat Clear Calc 86.22, Est GFR (MDRD) Non-Af 76, BUN/Creatinine Ratio 8.7 L, Glucose 161 H, Calcium 9.1 05/11/25 17:25: Lactic Acid 2.3 H* 05/11/25 18:22: Urine Color Earlene, Urine Clarity Turbid, Urine pH 6.0, Ur Specific [place] 1.020, Urine Protein 100 H, Urine Glucose (UA) 50 H, Urine Ketones 5 H, Urine Occult Blood 250 H, Urine Nitrite Positive H, Urine Bilirubin 1 H, Urine Urobilinogen 8 H, Ur Leukocyte Esterase 100 H, Urine RBC > 100 SEEN, Urine WBC 25-50 SEEN, Ur Squamous Epith Cells 10-25 SEEN, Urine Bacteria 3+, Urine Mucus 0 SEEN, Urine Opiates Screen NEGATIVE, U Buprenorphine Qual NEGATIVE, Ur Oxycodone Screen NEGATIVE, Urine Methadone Screen NEGATIVE, Urine Fentanyl Screen NEGATIVE, Ur Barbiturates Screen NEGATIVE, Ur Phencyclidine Scrn NEGATIVE, Ur Amphetamines Screen PRESUMPTIVE POSITIVE, U Benzodiazepines Scrn NEGATIVE, Urine Cocaine Screen NEGATIVE, U Cannabinoids Screen NEGATIVE 05/11/25 20:54: Ethyl Alcohol < 10.1 05/11/25 22:10: Lactic Acid 1.0 05/12/25 05:26: WBC 14.5 H, RBC 4.77, Hgb 13.3, Hct 40.0, MCV 83.9, MCH 27.9, MCHC 33.3, RDW Std Deviation 38.7, RDW Coeff of Tom 12.7, Plt Count 509 H, MPV 8.9, Immature Gran % (Auto) 0.400, Neut % (Auto) 72.6 H, Lymph % (Auto) 10.5 L, [place] % (Auto) 16.1 H, Eos % (Auto) 0.3, Baso % (Auto) 0.1, Absolute Neuts (auto) 10.6 H, Absolute Lymphs (auto) 1.52, Nucleated RBC % 0, Differential Comment SCANNED, Platelet Estimate MOD INC, RBC Morphology NORM C+C, Sodium 134, Potassium 4.4, Chloride 99, Carbon Dioxide 21.2, Anion Gap 14, BUN 12, Creatinine 1.19, Estim Creat Clear Calc 86.95, Est GFR (MDRD) Non-Af 77, BUN/Creatinine Ratio 10.3, Glucose 94, Hemoglobin A1c 5.5, Calcium 8.4, Total Bilirubin 0.51 05/12/25 05:26: Total Bilirubin Cancelled, Direct Bilirubin 0.25, AST 21 05/12/25 05:26: AST Cancelled, ALT 19 05/12/25 05:26: ALT Cancelled, Alkaline Phosphatase 98 05/12/25 05:26: Alkaline Phosphatase Cancelled, Total Protein 6.7 05/12/25 05:26: Total Protein Cancelled, Albumin 3.1 L 05/12/25 05:26: Albumin Cancelled, Globulin 3.7 05/12/25 05:26: Globulin Cancelled, Albumin/Globulin Ratio 0.8 L 05/12/25 07:02: PT 14.2, INR 1.1 Imaging Radiology Impression Abdomen/Pelvis CT 05/11/25 16:59 IMPRESSION: Improvement in hydronephrosis status post stent placement. Ureteral stone is still suspected to remain present Reading [facility]
[2025-05-12] MEDS: 0.9% Normal Saline (1000mL) 1,000 ML 100 ML IV ×2 (10:05→21:01)
[2025-05-12 14:12] VITALS: BP 123/90; PULSE 114; RESP 16; TEMP 37.2; O2SAT 98
[2025-05-12 20:56] VITALS: BP 131/59; PULSE 100; RESP 16; TEMP 36.8; O2SAT 96
[2025-05-13] VITALS (13 sets, daily range): BP systolic 108–121; BP diastolic 66–79; PULSE 80–100; RESP 16–20; TEMP 36–36.9; O2SAT 95–100; BMI 25.9; BMI 26.0
--- NOTE | 2025-05-13 03:48 | NURSING ---
[facility] called for [facility] about pt care and plan.
[2025-05-13 04:47] LABS: Hematocrit 32.3 % (40-54); Hemoglobin 10.8 g/dL (13.0-16.5); Immature Granulocytes Count 0.030 X10^3/uL (0.0-0.0); Mean Corp Hgb Conc 33.4 g/dL (32-36); Mean Corpuscular Volume 83.5 fL (80-94); Mean Platelet Vol. 9.3 fl (6.2-12.0); NRBC Flagged by Analyzer 0 % (0-5); Platelet Count 448 K/mm3 (150-450); RBC Distribution Width CV 12.9 % (11.6-14.6); RBC Distribution Width SD 39.1 fl (35.1-43.9); Red Blood Count 3.87 M/mm3 (4.6-6.2); White Blood Count 9.8 K/mm3 (4.4-11.0)
[2025-05-13] MEDS: 0.9% Normal Saline (1000mL) 1,000 ML 100 ML IV (05:13)
[2025-05-13 05:46] LABS: Anion Gap 9 (5-15); BUN 10 mg/dL (4-19); BUN/Creat Ratio 9.3 RATIO (10-20); Calcium,Total 7.7 mg/dL (7.6-11.0); Carbon Dioxide 24.2 mmol/L (21.0-32.0); Chloride 102 mmol/L (98-108); Estimated Creatinine Clearance 95.80 ml/min (50-250); Glucose 94 mg/dL (70-99); Magnesium 1.9 mg/dL (1.5-2.2); Potassium 4.1 mmol/L (3.3-5.1)
[2025-05-13] MEDS: 0.9% Normal Saline (1000mL) 1,000 ML 15 ML IV (11:05)
--- NOTE | 2025-05-13 11:22 | PCM.PRE.AN2 ---
ASA Classification* ASA Classification ASA Classification: 2 and E Assessment & Plan Anesthesia* Anesthesia Assessment Anesthesia Assessment: Discussed sedation and/or anesthesia options, risks, benefits, and alternatives with patient/parents/legal guardian/POA. Questions invited. The patient/parents/legal guardian/POA seems to understand and agrees to proceed with anesthesia plan. Reviewed the physical assessment, medical history, allergy history and patient home medications list prior to surgery/procedure/anesthetic and documented any changes. Performed airway and anesthesia risk assessments. Anesthesia Type Anesthesia Type: General History Source History Obtained from:: Patient and Chart Anesthesia Focused Assessment* Temperature: 97.7 F Pulse Rate: 84 Blood Pressure: 109/70 Respiratory Rate: 16 Pulse Ox: 97 Oxygen Delivery Method: Room Air Airway Assessment Mouth opens: >3 cm Mallampati Score: II Teeth Condition: Chipped/Broken Neck Range of motion (ROM): Full ROM Labs Anesthesia Preop lab: CBC WBC 9.8 K/mm3 (4.4-11.0) 05/13/25 04:04 05/13/25 RBC 3.87 M/mm3 (4.6-6.2) L 05/13/25 04:04 05/13/25 Hgb 10.8 g/dL (13.0-16.5) L 05/13/25 04:04 05/13/25 Hct 32.3 % (40-54) L 05/13/25 04:04 05/13/25 Plt Count 448 K/mm3 (150-450) 05/13/25 04:04 05/13/25 CHEMISTRY Potassium 4.1 mmol/L (3.3-5.1) 05/13/25 04:04 05/13/25 Sodium 135 mmol/L (133-145) 05/13/25 04:04 05/13/25 Magnesium 1.9 mg/dL (1.5-2.2) 05/13/25 04:04 05/13/25 Phosphorus 2.5 mg/dL (2.7-4.5) L 05/13/25 04:04 05/13/25 BUN 10 mg/dL (4-19) 05/13/25 04:04 05/13/25 Creatinine 1.08 mg/dL (0.70-1.20) 05/13/25 04:04 05/13/25 Glucose 94 mg/dL (70-99) 05/13/25 04:04 05/13/25 COAG PT 14.2 SECONDS (11.7-14.9) 05/12/25 07:02 05/12/25 Pre-Assessment Diagnosis/Proposed Procedure Planned Operative Procedure(s): Ureteroscopy with laser lithotripsy and Stent Anesthesia History 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 When Was Last Pacemaker Check QUESTION #4 FULL TEXT: You/Your Family Experience fever (hyperthermia) with Anesthesia Last Oral Intake Last Oral intake: Last Oral Intake NPO since Meds taken in AM with sips of water? 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 - channeling machine operator: PONV - channeling machine operator Female HX of Motion Sickness HX of N/V After Surgery Non-Smoker Duration of Surgery greater than 60 minutes Number of Risk Factors PONV Score Height & Weight Height & Weight: Anesthesia: Height & Weight Height 6 ft 05/13/25 08:53 Weight: 87.1 kg 05/13/25 08:53 Body Mass Index (BMI) 26.0 05/13/25 08:53 Respiratory Assessment Respiratory Assessment - channeling machine operator: Respiratory Tract Infection Hx - channeling machine operator Hx Respiratory Tract Infection No 05/13/25 05:19 STOP Sleep Apnea STOP Sleep Apnea - channeling machine operator: STOP Sleep Apnea - channeling machine operator Hx Hypertension Yes 05/11/25 21:29 Hx Sleep Apnea No 05/11/25 21:29 CPAP BIPAP Do you snore loudly (louder Yes 05/11/25 21:29 than talking or can be heard Do you often feel tired/ Yes 05/11/25 21:29 fatigued/ sleepy during daytime? Has anyone observed you stop No 05/11/25 21:29 breathing during sleep? STOP Results Positive 05/11/25 21:29 QUESTION #5 FULL TEXT : Do you snore loudly (louder than talking or can be heard through closed doors)? 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 Specify any problems Hx of Preganancy in last 3 N/A 05/11/25 21:29 Months Nurse Filling Out Transfusion [email or web address] 05/11/25 21:29 & Questions: Date: 05/11/25 05/11/25 21:29 Time: 21:32 05/11/25 21:29 Patient unable to answer at this time (ie. confused, unrespo /Reproduction History /Reproductive History - channeling machine operator: /Reproductive Hx- channeling machine operator Hx Now No 05/13/25 05:19 Gestational Age (in weeks): EDC: Hx Hx Para Hx Section SAB No 05/13/25 05:19 Active Medications Active Medications: Current Medications Generic Name Dose Route Start Last Admin Trade Name Freq PRN Reason Stop Dose Admin Acetaminophen 650 mg 05/11/25 21:39 05/12/25 14:09 Acetaminophen 325 Mg Tablet PO 650 mg Q4H PRN PRN Administration Fever, pain 1-10/10 Al Hydroxide/Mg Hydroxide 30 ml 05/11/25 21:39 Mag Hydrox/Al Hydrox/Simeth 30 Ml Udc PO Q6H PRN PRN Gastric Burning Albuterol Sulfate 2.5 mg 05/11/25 21:39 Albuterol 2.5 Mg/3 Ml Vial.Neb. INHALATION Q2H PRN PRN Dyspnea, wheezing Guaifenesin 20 ml 05/11/25 21:39 Guaifenesin 10 Ml Udc (200mg/10ml) PO Q4H PRN PRN COUGH Hydralazine HCl 10 mg 05/11/25 21:39 Hydralazine 20 Mg/Ml Vial IV Q4H PRN PRN SBP > 160 Protocol Sodium Chloride 250 mls @ 15 mls/hr 05/11/25 21:34 IV .[id number] PRN Saline Flush Sodium Chloride 250 mls @ 15 mls/hr 05/11/25 21:34 IV .[id number] PRN Additional IVPB Infusion Ceftriaxone Sodium 1 gm in 50 mls @ 100 mls/hr 05/12/25 10:00 05/13/25 09:08 Rocephin IV 100 mls/hr Q24 BOAZ Administration Sodium Chloride 1,000 mls @ 100 mls/hr 05/12/25 09:30 05/13/25 05:13 IV 100 mls/hr .Q10H BOAZ Administration Sodium Chloride 1,000 mls @ 15 mls/hr 05/13/25 11:05 05/13/25 11:05 IV 15 mls/hr .Q48H BOAZ Administration Ketorolac Tromethamine 15 mg 05/11/25 22:00 05/13/25 05:12 Ketorolac 15 Mg/Ml Vial IV 05/16/25 20:34 15 mg Q8 BOAZ Administration Morphine Sulfate 2 mg 05/11/25 21:39 Morphine 2 Mg/Ml Syringe IV Q3H PRN PRN Pain Score 6-10 Nicotine 21 mg 05/12/25 10:00 05/13/25 09:09 Nicotine (Pbkc) 21 Mg Patch TD Not Given DAILY BOAZ Ondansetron HCl 4 mg 05/11/25 21:39 05/12/25 14:09 Ondansetron 4 Mg/2 Ml Vial IV 4 mg Q8H PRN PRN Administration NAUSEA/VOMITING Oxycodone HCl 5 mg 05/11/25 21:39 Oxycodone 5 Mg Tablet PO Q4H PRN PRN Pain Score 4-10 Senna/Docusate Sodium 2 tablet 05/11/25 21:39 Senna/Docusate Sodium 1 Tablet PO BID PRN PRN Constipation Sodium Chloride 10 - 40 ml 05/11/25 21:34 0.9% Saline Lock 10 Ml Syringe IV UD PRN SALINE FLUSH Temazepam 15 mg 05/11/25 21:39 Temazepam 15 Mg Capsule PO QHS PRN PRN INSOMNIA PFSH Medical History Loss of hearing Arthritis Narcolepsy Restless legs Injury of head and neck Gastric reflux History of Borjas's esophagus History of edema History of stress test Hypertension History of electroconvulsive therapy Hx of fracture of ankle History of fracture of tibia Bipolar disorder Anxiety Depression Smoker Migraines PTSD (post-traumatic stress disorder) Home Medications ?Medication ?Instructions ?Recorded ?Last Taken ?Type NK 05/11/25 Unknown History Allergy/AdvReac Type Severity Reaction Status Date / Time Penicillins Allergy PT UNSURE Verified 05/11/25 16:33 OF REACTION Family History Mother , secondary to sepsis following bladder-mesh surgery per patient report. No problems noted. Father CAD (coronary artery disease) Heart disease Hypertension Myocardial infarction Surgical History History of esophagogastroduodenoscopy (EGD) History of cystoscopy Hx of sinus surgery Social History household members: none Smoking Status: Current every day smoker tobacco type: cigarettes Smoking packs per day: 1 Smoking cigarettes per day: 20.0 alcohol intake: former details: Sober x 2 years. substance use type: former substance user Date of last use: Clean x 6 months, primarily methamphetamine use prior. Review of Systems (Anesthesia) ROS Narrative System reviewed and no additional complaints, except as documented.
[2025-05-13] MEDS: Midazolam 2 MG/2 ML Syringe 4 MG IV (11:45)
[2025-05-13] MEDS: PROPOFOL 19.86 MG IV (11:48)
[2025-05-13] MEDS: Lidocaine 1% (5 ml sdv) 5 ML Vial 3 ML IV (11:48)
--- NOTE | 2025-05-13 12:00 | CALC_PTH ---
PATIENT: DARLY PELLETIER LOC: [facility]3 U#:[id number] AGE/SX: 45/M ROOM: SD312 RE05/11/[address]: Dr. Stephen Liu MD : 1980 BED: 1 DIS: 05/13/2025 SPEC #: [id number] RECD: 05/13/25 13:38 STATUS: GIAN GENTILE #: [id number] TERESA: 05/13/25 12:[address]: Korey Myers DEPT: SURGICAL PATHOLOGY RECD BY: Abdirahman Lewis ENTERED: 05/13/25 13:51 SP TYPE: Calculi OTHR DR: MD Dr. Benedicto Kenny MD Dr. Nicholas F Kotsonis, MD [facility] Tissues: A - CALCULI Procedures: Surgery Specimen Level I HEADER OPERATION: Ureteroscopy, basket of stone, removal of stent PRE-OP DIAGNOSIS: UTI and obstructing left ureteral calculi TISSUE SUBMITTED: A- Renal calculi GROSS DIAGNOSIS A. Kidney, left, renal calculi: * - Urolithiasis (gross examination only). - Chemical analysis pending, to be reported separately COMMENT The calculus is submitted in its entirety for chemical stone analysis. The results from this study will be reported separately. GROSS DESCRIPTION A. Received fresh labeled with the patient's name and date of . Designated as renal calculi are 2 allen to brown, irregular calculi, 0.3 cm and 0.5 cm. No sections are submitted. The specimen is for gross examination only. The specimen is sent for stone analysis. [place] 05/13/2025 CPT:76520
[2025-05-13] MEDS: fentaNYL 100 MCG/2 ML Ampul IV (12:08)
--- NOTE | 2025-05-13 12:09 | OP.PCM_ITS ---
Operative Report (Standard) Operative Information Date of Procedure: 05/13/25 Pre-Operative Diagnosis: Obstructing left ureteral calculus and urinary tract infection retained stent Post-Operative Diagnosis: Same Surgery/Procedure Performed: Cystoscopy left ureteroscopy basket of stone and removal of stent, no stent clinical laboratory director: No Type of Anesthesia: General RN Documented Start/Stop Times: Operation Date: 05/13/25 12:00 Case Time Into Pre-Op 05/13/25 11:00 Out of Pre-Op 05/13/25 11:43 Anesthesia Start 05/13/25 11:45 Into Room 05/13/25 11:45 Procedure Start 05/13/25 11:57 Procedure End 05/13/25 12:08 Procedure Start Time: 11:57 Procedure Stop Time: 12:08 Select all DRAINS/GRAFTS/IMPLANTS that apply: None Estimated Blood Loss: None Specimen collected: No Description of surgery: This is a 45-year-old male who presented to [facility] with obstructing stone in the mid ureter and placed a stent at that time we set him up for outpatient lithotripsy to treat the stone however the [facility] would not approve treatment here at the hospital so he was to follow-up with the ID he was given a 2-month appointment to follow-up, he then missed his appointment he now has another 2-month appointment to follow-up with them but he presented to the hospital with a high fever chills signs of infection so at this point we will get a proceed with resolution of the stone and the infection has been on broad- spectrum antibiotics is stable we will proceed with ureteroscopy extraction of the stone and removal of the stent on urgent basis. Patient was taken back to the operating room after smooth induction of anesthesia he was placed in dorsolithotomy position went of the bladder with a 21 Frisian rigid cystourethroscope grabbed the existing stent pulled out the meatus put a wire through the stent up into the kidney then over the wire went in with a flexible 8 Frisian ureteroscope my Olympus I then used an engage basket I found the stone in the mid ureter I basket this large fragment pulled all the way out intact and then went back in with the ureteroscope I found a second fragment and this fragment was also taken out intact sent off as a specimen I then went back in with the ureteroscope inspected the upper pole midpole lower pole the kidney entire length the ureter was clear of any stones or fragments and then drained the bladder remove the ureteroscope patient ascetic was reversed and he will be taken back to the PACU in stable condition successful removal of the stones and removal of the stent. Surgical Findings: Stent removed and the entire stone removed Complications Complications: No Admit VTE Documentation VTE Present on Admission: No VTE Mechan Device Prophylaxis: SCD's
--- NOTE | 2025-05-13 12:13 | CASEMGMT ---
Noted that there is a CM consult order. RN CM to the pt room at this time for initial DC planning assessment. Pt is currently off of the floor. CM to follow.
--- NOTE | 2025-05-13 12:24 | PCM.POST.ANE ---
Anesthesia: Postop Eval I Current Vital Signs Temperature: 96.8 F Pulse Rate: 80 Blood Pressure: 114/78 Respiratory Rate: 20 Pulse Ox: 100 Oxygen Delivery Method: Simple Mask Oxygen Flow Rate (L/min): 8 Assessment Airway patent: Yes Spontaneous unlabored respirations: Yes Mental status: Asleep nausea: No Vomiting: No Anesthesia Complication: No Fluid Hydration Crystalloid volume administer (ml): 800 Total IV fluid infused: 800 Progress Note Anesthesia document: Postop Eval 1 completed: Yes
--- NOTE | 2025-05-13 13:35 | POSTOPAN2_ITS ---
Anesthesia Postop Eval I Sum Postop Eval Completion status Anesthesia document: Postop Eval 1 completed: Yes Anesthesia Postop Eval I Summary Anesthesia Postop Eval I Summary: Anesthesia Postop Eval I: Assessment Summary Airway patent Yes 05/13/25 12:24 [email or web address] [email or web address] Spontaneous unlabored Yes 05/13/25 12:24 DISPATCH [email or web address] respirations Mental status Asleep 05/13/25 12:24 [email or web address] [email or web address] nausea No 05/13/25 12:24 DISPATCH [email or web address] Vomiting No 05/13/25 12:24 DISPATCH [email or web address] Anesthesia Postop Eval I: Fluid Summary Crystalloid volume administer 800 05/13/25 12:24 DISPATCH [email or web address] (ml) Colloids volume administered ( ml) Blood Product volume administered (ml) Total IV fluid infused 800 05/13/25 12:24 DISPATCH [email or web address] Anesthesia Postop Eval I: Summary Notes Anesthesia Complication No 05/13/25 12:24 DISPATCH [email or web address] Anesthesia Complication Comment: Post-operative progress note Anesthesia: Postop Eval II Evaluation Mental status: Awake Pain Level: 0 nausea: No Vomiting: No Complications Anesthesia Complication: No
--- NOTE | 2025-05-13 13:35 | PCM.POSTANE2 ---
Anesthesia Postop Eval I Sum Postop Eval Completion status Anesthesia document: Postop Eval 1 completed: Yes Anesthesia Postop Eval I Summary Anesthesia Postop Eval I Summary: Anesthesia Postop Eval I: Assessment Summary Airway patent Yes 05/13/25 12:24 [email or web address] Spontaneous unlabored Yes 05/13/25 12:24 [email or web address] respirations Mental status Asleep 05/13/25 12:24 [email or web address] nausea No 05/13/25 12:24 [email or web address] Vomiting No 05/13/25 12:24 [email or web address] Anesthesia Postop Eval I: Fluid Summary Crystalloid volume administer 800 05/13/25 12:24 [email or web address] (ml) Colloids volume administered ( ml) Blood Product volume administered (ml) Total IV fluid infused 800 05/13/25 12:24 [email or web address] Anesthesia Postop Eval I: Summary Notes Anesthesia Complication No 05/13/25 12:24 [email or web address] Anesthesia Complication Comment: Post-operative progress note Anesthesia: Postop Eval II Evaluation Mental status: Awake Pain Level: 0 nausea: No Vomiting: No Complications Anesthesia Complication: No
--- NOTE | 2025-05-13 14:54 | DCINST_ITS ---
Discharge Instructions DC O2, CPAP, BIPAP needs Home O2 Discharge instructions: No Dressing / Incision Discharge Activity: Return to Normal Activity Dressing / Incision Call your doctor if you observe: Fever of 101 or Higher, Shortness of breath, Dizziness, Fainting spells, Swelling in the ankles, Chest pain and Increased palpitations (irregular heartbeat) Follow Up Care Test Results: Test results from this visit will be discussed in further detail at your follow- up appointment, if applicable. Discharge Plan Admission Admit Date/Time: 05/11/25 20:32 Attending Provider: Stephen Liu Primary Care Provider: [facility],[place] Consulting Providers: Korey Myers; Emely Foster; Benedicto Chen Discharge Orders/Prescriptions Prescriptions: New cefdinir 300 mg capsule 300 mg PO BID Qty: 10 0RF Referrals / Follow Up: Korey Myers MD [Med Staff - Active Staff] - Within 2 Weeks [facility],[place] [Primary Care Provider] - Within 1 Week Disposition Disposition (needs filled in before D/C Order can be placed): Home, Self Care
--- NOTE | 2025-05-13 15:10 | CASEMGMT ---
[address] Assessment: Face to Face with pt for initial transition planning/care coordination assessment. [address] introduced self and role at [facility], pt voices understanding and consents to assessment. Pt is A&O x4 and answers all questions appropriately at this time. Pt sitting up in bed in no distress. Care providers, pharmacy, and demographics verified/updated. Admitting Dx:UTI, L ureteral stent Strata Score: 2 [place]CP: [place] Specialists:Pt sees the [facility] for mental health and [facility] for uro Preferred Pharmacy: [facility] [place]: [facility] L[facility]K: Sandeep Allison, son Living Arrangements: Pt lives alone in a two story home with 2 steps to enter. Pt reports he is I in ADL/IADLs and denies concerns at home. Transportation: Pt drives self and denies concerns with transportation. DME:Denies HHC/SNF: Denies hx of Pt states no concerns with going home at time of dc. Pt states he smokes a pack of cigarettes a day. 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 Pt states he feels he is doing well in this aspect and denies any need for resources for this. Pt states no further concerns/needs. CM to follow. Advised pt to ask CM if any further questions/concerns/needs arise, voices understanding. Pt Goal: Home Plan: Home [facility] CM
--- NOTE | 2025-05-13 15:23 | PCM.DC.SUM ---
Providers Date of Admission: 05/11/25 Primary Care Physician: [facility] Hospital Consultations 05/11/25 21:39 Consult: Urology Routine Consulting Provider: Korey Myers Reason for Consult: L ureteral stent for prolonged period, UTI EMERGENT Consult: No MD Notified: Yes Date Notified: 05/11/25 Time Notified: 20:33 Method of Notification: ED Physician Initiated Reason For Visit: UTI, L URETERAL STENT Diagnosis Discharge Diagnosis (1) Ureteral stent present: Status: Acute Code(s): Z96.0 - Presence of urogenital implants (2) Lactic acidosis: Status: Acute Code(s): E87.20 - Acidosis, unspecified (3) Urinary tract infection: Status: Acute Code(s): N39.0 - Urinary tract infection, site not specified (4) Left ureteral calculus: Status: Acute Code(s): N20.1 - Calculus of ureter Medications at Discharge Home Medications cefdinir 300 mg capsule 300 mg PO BID #10 caps 05/13/25 Hospital Course Operations None Procedures - (Cystoscopy with stone retrieval) Summary of Care Provided Minutes Spent on Discharge: 35 Hospital Course: Per HPI: The patient is a 45 y/o M w/ PMHx: CKD stage II per GFR trending, Former EtOH abuse sober x 2 years, Former Methamphetamine abuse clean x 6 months, RLS, Anxiety and Depression/Bipolar disorder, HTN, Tobacco use, Chronic migraines, 02/26/2025 cystoscopy with left stent placement secondary obstructing stone in the left mid ureter discharged on oral ciprofloxacin who now re-presents to the [facility] ED on 05/11/25 with most recent follow-up with urology at the OR on 05/02/2025 arranged however he missed his visit and 4 days prior to current presentation began to have increasing progressively worsening left flank pain as well as ongoing persistent hematuria with no fevers or chills self ministering Excedrin however without marked relief prompting eventual ED evaluation. In the ED upon evaluation he notes his pain is dull aching and rates it 2-3 out of 10 in severity at rest, more with palpation. Workup in the ED included T99.9, heart rate initially 121, BP 131/82, respiratory rate 18, 100% on room air with most recent repeat vitals heart rate 105, BP 110/60, respiratory rate 16, 98% on room air, CBC with WC 15.7, hemoglobin 13.6, platelet 518 with left shift, BMP with sodium 130, chloride 91, BUN/creatinine 10/1.20, GFR 76, glucose 161, lactic acid 2.3, urinalysis noted to be turbid, specific Ratley 1.020, protein 100, glucose 50, ketone 5, occult blood 250, positive nitrate, leukocyte Estrace 100, urine RBCs greater than 100, urine WBCs 25-50 although not the best sample as noted squamous epithelial cells to 10-25, 3+ urine bacteria, urine culture pending per ED, CT abdomen and pelvis without contrast with improvement of previous hydronephrosis status post stent placement however ureteral stone still suspected to remain present. In the ED patient administered 1 L normal saline, Ancef 2 g IV x 1, Toradol 15 mg IV x 1, Levaquin 750 mg IV x 1, morphine 4 mg IV x 1, Zofran 4 mg IV x 2. Hospital Course: 1. Left flank pain due to nephrolithiasis and a UTI?45-year-old male is had a previous ureteral stent on 02/26/2025 with a left stent placement secondary to an obstructing stone. Unfortunately he had missed outpatient follow-up so presented back to the hospital with worsening left flank pain. His left ureteral stent was removed and the stone was able to be retrieved with no new stent placed. He is feeling much better and would like to go home. I discussed with him the possibility for discharge however we have not received a urine culture yet so I told him that we can empirically treat him however he would need to follow-up with either urology or his primary care doctor to get results of the urine culture to make sure that his organism was sensitive. Will plan for cefdinir 300 mg p.o. twice daily for another 5 days, he does have a listed allergy to penicillin however he has tolerated Rocephin while here in the hospital. Recommend he follow-up with his PCP in 3 to 5 days and with urology in 2 weeks to a month post discharged. Physical Exam Narrative General: Alert, Oriented x3, Cooperative, No apparent distress HEENT: Atraumatic, PERRLA, EOMI, Normocephalic Oral: Moist Mucosa Neck: Supple, No JVD Lungs: Clear to auscultation, Normal air movement, No rhonchi, No wheeze, No rales Cardiovascular: Regular rate, Regular Rhythm, Normal S1, Normal S2, No murmurs Abdomen: Soft, Non Tender, Non-Distended, No Hepato-splenomegaly Extremities: No edema, Capillary Refill Less than 3 Seconds Skin: No rashes, No breakdown Musculoskeletal: No Tenderness to Palpation of Joints or Extremities Neurological: No focal neurological deficits, Motor Exam 5/5 strength throughout, Sensory exam intact to light touch and pain Psych/Mental Status: Normal Affect, Appropriate Weight / BMI Weight Weight: 192 lb 0.362 oz Body Mass Index (BMI) 26.0 ABG / Lab / Microbiology Data 05/13/25 04:04 05/13/25 04:04 Laboratory: Laboratory Results - last 24 hr 05/13/25 04:04: WBC 9.8, RBC 3.87 L, Hgb 10.8 L, Hct 32.3 L, MCV 83.5, MCH 27.9, MCHC 33.4, RDW Std Deviation 39.1, RDW Coeff of Tom 12.9, Plt Count 448, MPV 9.3, Immature Gran % (Auto) 0.300, Neut % (Auto) 65.8, Lymph % (Auto) 18.1 L, [place] % (Auto) 15.2 H, Eos % (Auto) 0.5, Baso % (Auto) 0.1, Absolute Neuts (auto) 6.5, Absolute Lymphs (auto) 1.77, Nucleated RBC % 0, Sodium 135, Potassium 4.1, Chloride 102, Carbon Dioxide 24.2, Anion Gap 9, BUN 10, Creatinine 1.08, Estim Creat Clear Calc 95.80, Est GFR (MDRD) Non-Af 87, BUN/Creatinine Ratio 9.3 L, Glucose 94, Calcium 7.7, Phosphorus 2.5 L, Magnesium 1.9 D/C Instructions Call your doctor if you observe: Fever of 101 or Higher, Shortness of breath, Dizziness, Fainting spells, Swelling in the ankles, Chest pain and Increased palpitations (irregular heartbeat) DC O2, CPAP, BIPAP Needs Home O2 Discharge instructions: No Meaningful Use Info Meaningful Use Meaningful Use Diagnoses (Choose all that apply): None applicable Discharge Plan Admission Admit Date/Time: 05/11/25 20:32 Attending Provider: Kotsonis,Stephen F Primary Care Provider: [facility] Consulting Providers: Korey Myers; Emely Foster; Benedicto Chen Discharge Orders/Prescriptions Prescriptions: New cefdinir 300 mg capsule 300 mg PO BID Qty: 10 0RF Referrals / Follow Up: Korey Myers MD [Med Staff - Active Staff] - Within 2 Weeks [facility] [Primary Care Provider] - Within 1 Week Disposition Disposition (needs filled in before D/C Order can be placed): Home, Self Care Charges/Coding Visit Charges Inpatient E&M: 71852 Disch Hosp >30min
== END 2025-05-13 16:08 | disposition home or self-care (01) | DRG 690 ==
LOC: ED 21:02 → MS3 21:05
PROVIDERS: Anesthesiology; Internal Medicine; Urology; Admitting Provider Family Medicine; Emergency Provider Emergency Medicine; Visit Provider Family Medicine
PROC: 0TJ98ZZ Inspection of Ureter, Via Natural or Artificial Opening Endoscopic (ICD-10-PCS; CPT 52352; principal; 2025-05-13 11:50)
DX: N13.6 Pyonephrosis (principal); E87.21 Acute metabolic acidosis; E87.1 Hypo-osmolality and hyponatremia; F31.9 Bipolar disorder, unspecified; I12.9 Hypertensive chronic kidney disease with stage 1 through stage 4 chronic kidney disease, or unspecified chronic kidney disease; F17.210 Nicotine dependence, cigarettes, uncomplicated; N18.2 Chronic kidney disease, stage 2 (mild); F41.9 Anxiety disorder, unspecified; E87.8 Other disorders of electrolyte and fluid balance, not elsewhere classified; E86.1 Hypovolemia; F43.10 Post-traumatic stress disorder, unspecified; Z79.899 Other long term (current) drug therapy
CPT/HCPCS: 36415; 74176; 80048; 80053; 80307; 81001; 82077; 82248; 82360; 83036; 83605; 83735; 84100; 85025; 85610; 87086; 87088; 88300; 93005; 94668; 97802; 99284; A4216; C1769; J2405